=== PATIENT | male | born 1930 | race Caucasian/White ===

== ENCOUNTER 2017-08-25 15:18 | Inpatient (IN) | payer MEDICARE ==
[2017-08-25] MEDS ORDERED: DEXAMETHASONE SOD PHOS (MDV) 100 MG/10 ML VIAL ONE (19:46)
[2017-08-25] MEDS ORDERED: PROPOFOL 10 MG/ML 20 ML VIAL IV ONE (19:46)
[2017-08-25] MEDS ORDERED: KETAMINE 10 MG/ML 20 ML VIAL ONE (19:46)
[2017-08-25] MEDS ORDERED: MIDAZOLAM 2 MG/2 ML VIAL ONE (19:46)
[2017-08-25] MEDS ORDERED: PHENYLEPHRINE-0.9% NACL SYG 1 MG/10 ML SYRINGE ONE (19:46)
[2017-08-25] MEDS ORDERED: GLYCOPYRROLATE 0.2 MG/ML 2 ML VIAL ONE (19:46)
[2017-08-25] MEDS ORDERED: fentaNYL (PF) 50 MCG/ML 2 ML AMP ONE (19:46)
[2017-08-25] MEDS ORDERED: LACTATED RINGERS 1,000 ML IV ONE (19:46)
[2017-08-25] MEDS ORDERED: ONDANSETRON 4 MG/2 ML VIAL ONE (19:46)
[2017-08-25] MEDS ORDERED: SODIUM CHLORIDE 0.9% 50 ML with ceFAZolin 1,000 MG IV ONE ×2 (19:53)
[2017-08-25] MEDS ORDERED: LIDOCAINE 1%-EPI 1:100,000 30 ML VIAL SQ ONE ×2 (20:02)
--- NOTE | 2017-08-25 21:07 | P.OP ---
Date of Procedure: 08/25/17 Preoperative Diagnosis: Impending airway compromise Hypopharyngeal edema. radiation effects Laryngitis/epiglottic edema Postoperative Diagnosis: same Procedure(s) Performed: Tracheostomy Ligation of thyroid isthmus Direct microscopic laryngoscopy with biopsy posterior laryngeal Anesthesia: CHARLEE DRISCOLL Surgeon: Parminder Donis Estimated Blood Loss (ml): 5 Pathology: other (Posterior laryngeal biopsy) Condition: stable Disposition: PACU Indications for Procedure: This patient is status post radiotherapy for a laryngeal carcinoma. He developed some stridor over the last 2 weeks which is scheduled to be critically worsened. His stridor is such a problem that he is unable to sleep at night. He started to become fatigued and his stridor is making short of breath. He is also severely hoarse and is almost aphonic. He had a course of steroids which I give short-term improvement. After discussion have been I decided to proceed forward with a tracheotomy and laryngoscopy and biopsy. We will be ligating the isthmus at the time of surgery. All risks, benefits, and alternative therapies were discussed. Consent was obtained and all questions were answered. Operative Findings: Patient had massive hypopharyngeal edema massive edema the epiglottis larynx posterior laryngeal space cricoid space etc. Description of Procedure: This patient was taken to the operative room and placed in the supine position. IV sedation was administered the neck was marked and injected with lidocaine 1 % with epinephrine 1 100,000 approximately 10 minutes were allowed wait for full vasoconstrictive effects to take place. After the neck was prepped a vertical incision was made from the cricoid to the suprasternal notch. We dissected down to the strap muscles and the strap muscles were in the midline exposing the cricoid cartilage and the thyroid isthmus. We then freed the thyroid isthmus from the tracheal rings and with use of a LigaSure we and ligated the thyroid isthmus to obtain access into the trachea. Once the anterior tracheal rings were exposed we made a inferiorly based flap between the second and third tracheal rings and inserted a #8 Shiley cuffed tracheotomy tube. We closed the incision with a 4 rapid Vicryl. 2-0 silk was used for skin tie around the faceplate and a trach tie was placed around the neck. The tracheotomy tube was converted to the ventilator and a general anesthetic was then administered the patient underwent a general anesthetic allowing us to access the mouth and throat for a laryngoscopy and biopsy. A tooth guard was placed patient has very poor dental care and we entered the mouth with a Jako laryngoscope with care to avoid any trauma to the lips teeth gums and tongue. Mouth was opened tongue was depressed and the entire Onur and hypopharynx was evaluated including the base of tongue vallecula epiglottis postcricoid space piriform sinus Real vocal cords etc. etc. This was utilized under microscope utilizing a high-powered Zeiss microscope with a variable focal length. We found massive hypopharyngeal edema the epiglottis was extremely edematous the larynx was extremely edematous and the airway was very small and compromised. We biopsied this previous site of cancer in the posterior laryngeal region and the patient tolerated this well. Bleeding stopped spontaneously. The rest of the examination was unremarkable other than for massive radiation edema. All instrumentation was removed and the patient was taken to postanesthesia recovery in excellent condition. Tolerated this well and the patient will be sent to the intensive care unit for close observation. Dr. Ascencio will be managing this patient medically.
[2017-08-25] MEDS ORDERED: ONDANSETRON 4 MG/2 ML VIAL IVP PRN (21:08)
[2017-08-25] MEDS ORDERED: NALOXONE 0.4 MG/ML 1 ML VIAL IV PRN (21:08)
[2017-08-25] MEDS ORDERED: PROMETHAZINE 25 MG TAB PO PRN (21:08)
--- NOTE | 2017-08-25 21:35 | P.GSHP ---
History of Present Illness H&P Date: 08/25/17 Chief Complaint: Stridor impending airway compromise This is an 87-year-old white male who I saw in the office earlier today. He has developed some significant stridor both inspiratory and expiratory. He's been unable to sleep for several days and he is starting to fatigue in regards to his ability to breathe. He is almost aphonic. He is status post radiotherapy for laryngeal carcinoma. - Constitutional Constitutional: Reports anorexia, Reports fatigue, Reports lethargy, Reports weakness, Reports weight loss - EENT Comment: . Eyes: bilateral as per HPI Ears: deny: decreased hearing, ear discharge Ears, nose, mouth and throat: Reports hoarseness, Reports neck fullness/pressure , Denies dysphagia, Denies epistaxis, Denies headache, Denies mouth pain - Cardiovascular Cardiovascular: Denies chest pain - Respiratory Respiratory: Reports dyspnea - Gastrointestinal Gastrointestinal: Reports loss of appetite - Musculoskeletal Musculoskeletal: Denies atrophy - Integumentary Integumentary: Denies acne, Denies boils - Neurological Neurological: Denies aphasia, Denies ataxia - Endocrine Endocrine: Denies cold intolerance - Hematologic/Lymphatic Hematologic/Lymphatic: Reports as per HPI - Allergic/Immunologic Allergic/Immunologic: Denies allergic rhinitis Past Medical History Past Medical History: Cancer, GERD/Reflux, Hypertension, Osteoarthritis (OA), Pulmonary Embolus (PE) Additional Past Medical History / Comment(s): throat cancer, ANXIETY. RADIATION TX AT [facility] COMPLETED 06/26/17 AND CHEMOTHERAPY 7 TREATMENTS AT [facility] COMPLETED 06/29 History of Any Multi-Drug Resistant Organisms: None Reported Past Surgical History: Orthopedic Surgery Additional Past Surgical History / Comment(s): RIGHT HIP REPLACEMENT Past Anesthesia/Blood Transfusion Reactions: No Reported Reaction Additional Past Anesthesia/Blood Transfusion Reaction / Comment(s): HAD 2 UNITS DURING CHEMO AT [facility] Past Psychological History: No Psychological Hx Reported Smoking Status: Former smoker Past Alcohol Use History: Occasional Past Drug Use History: None Reported - Past Family History Father Family Medical History: Cancer Additional Family Medical History / Comment(s): KIDNEY CANCER Mother Family Medical History: Myocardial Infarction ([place]) Medications and Allergies Home Medications Medication Instructions Recorded Confirmed Type Acetaminophen [Tylenol Extra 1,000 mg PO BID PRN 08/25/17 08/25/17 History Strength] Atenolol [Tenormin] 50 mg PO DAILY 08/25/17 08/25/17 History LORazepam [Ativan] 1 mg PO DAILY 08/25/17 08/25/17 History Multivitamin/Iron/Folic Acid 1 tab PO DAILY 08/25/17 08/25/17 History [Centrum Complete Multivit Tab] Naproxen Sodium [Aleve] 440 mg PO DAILY PRN 08/25/17 08/25/17 History Omeprazole [PriLOSEC] 20 mg PO DAILY 08/25/17 08/25/17 History Tamsulosin HCl [Flomax] 0.4 mg PO DAILY 08/25/17 08/25/17 History amLODIPine BESYLATE/BENAZEPRIL 1 cap PO DAILY 08/25/17 08/25/17 History [amLODIPine BESYLATE/BENAZEPRIL 10-40 mg] Allergies Allergy/AdvReac Type Severity Reaction Status Date / Time No Known Allergies Allergy Verified 08/25/17 18:45 Surgical - Exam Osteopathic Statement: *. No significant issues noted on an osteopathic structural exam other than those noted in the History and Physical/Consult. Vital Signs Temp Pulse Resp BP Pulse Ox 97.7 F 109 H 20 110/60 100 08/25/17 15:58 08/25/17 15:58 08/25/17 15:58 08/25/17 15:58 08/25/17 15:58 - General Head is normocephalic the face is symmetric there's no abnormal movements is a no nodules present. Onur's well-formed canals are clear her nose is patent. Mouth and throat no oral lesions are noted neck demonstrates significant laryngeal inflammation. Patient has audible stridor both inspiratory and expiratory well developed, well nourished, severe distress, cachectic, chronically ill - Eyes absent: ptosis, lesions, erythema, surgical pupil - ENT normal pinna, normal nares, normal mucosa, no congestion, decreased hearing, poor group home - Neck Generalized radiation edema noted no masses, no bruits - Respiratory other (Short of breath with expiratory and inspiratory stridor) - Cardiovascular Rhythm: regular - Abdomen Abdomen: soft - Integumentary no rash, no growths - Neurologic normal coordination, normal sensation - Musculoskeletal normal gait, normal posture - Psychiatric oriented to time, oriented to person, oriented to place, no speech is normal, memory intact Assessment and Plan (1) Acute airway obstruction Current Visit: Yes Status: Acute Code(s): J98.8 - OTHER SPECIFIED RESPIRATORY DISORDERS SNOMED Code(s): 37929817 (2) Stridor Current Visit: Yes Status: Acute Code(s): R06.1 - STRIDOR SNOMED Code(s): 97728337 (3) Laryngeal edema Current Visit: Yes Status: Acute Code(s): J38.4 - EDEMA OF LARYNX SNOMED Code(s): 71370773 Plan: This patient presented to the office with severe stridor both inspiratory and expiratory with fatigue of breathing and shortness of breath. The patient did not appear that he was able to continue this pattern of breathing for very much longer we decided to proceed forward with a tracheotomy along with a laryngoscopy biopsy and of course we will ligate the thyroid isthmus to obtain access to the anterior trachea. All risks, benefits, and alternative therapies were discussed with the patient and the . Consent was obtained and all questions were answered.
[2017-08-25] MEDS ORDERED: D5-0.45% NACL WITH KCL 20MEQ/L 1,000 ML IV SCH (23:00)
[2017-08-25 23:13] LABS: Basophils % (A) 0 %; Eosinophils # (A) 0.1 k/uL (0-0.7); Eosinophils % (A) 2 %; HCT 21.4 % (39.0-53.0); Lymphocytes % (A) 14 %; MCH 30.3 pg (25.0-35.0); MCHC 32.2 g/dL (31.0-37.0); Mean Platelet Volume 6.4; Monocytes # (A) 0.4 k/uL (0-1.0); Monocytes % (A) 5 %; Neutrophils # (A) 5.6 k/uL (1.3-7.7); Neutrophils % (A) 78 %; Platelet Count 254 k/uL (150-450); RBC 2.27 m/uL (4.30-5.90); RDW 14.4 % (11.5-15.5); WBC 7.1 k/uL (3.8-10.6)
[2017-08-25 23:18] LABS: HGB 6.9 gm/dL (13.0-17.5)
[2017-08-25] MEDS: methylPREDNISolone SOD SUCCI 125 MG/2 ML VIAL IV SCH (23:59)
[2017-08-26 07:41] LABS: Anion Gap 14 mmol/L; Blood Urea Nitrogen 20 mg/dL (9-20); Calcium 8.5 mg/dL (8.4-10.2); Carbon Dioxide 23 mmol/L (22-30); Chloride 94 mmol/L (98-107); Glucose 182 mg/dL (74-99); Phosphorus 3.8 mg/dL (2.5-4.5); Potassium 4.3 mmol/L (3.5-5.1); Sodium 131 mmol/L (137-145)
[2017-08-26 07:57] LABS: Magnesium 0.6 mg/dL (1.6-2.3)
[2017-08-26] MEDS ORDERED: Magnesium Replacement Protocol 1 EACH MISC MISCELLANE PRN (08:01)
[2017-08-26 08:17] LABS: Basophils % (A) 0 %; Eosinophils % (A) 0 %; HCT 30.6 % (39.0-53.0); Lymphocytes # (A) 1.1 k/uL (1.0-4.8); Lymphocytes % (A) 12 %; MCH 30.4 pg (25.0-35.0); MCHC 32.9 g/dL (31.0-37.0); MCV 92.4 fL (80.0-100.0); Mean Platelet Volume 6.6; Monocytes # (A) 0.2 k/uL (0-1.0); Monocytes % (A) 2 %; Neutrophils # (A) 7.9 k/uL (1.3-7.7); Neutrophils % (A) 85 %; Platelet Count 268 k/uL (150-450); RBC 3.31 m/uL (4.30-5.90); RDW 15.3 % (11.5-15.5); WBC 9.3 k/uL (3.8-10.6)
[2017-08-26 08:19] LABS: HGB 10.1 gm/dL (13.0-17.5)
[2017-08-26] MEDS: HEPARIN SODIUM,PORCINE 5,000 UNIT/ML 1 ML VIAL SQ SCH ×2 (08:23→15:13)
[2017-08-26] MEDS: PANTOPRAZOLE 40 MG TABLET PO SCH ×2 (08:23→18:28)
[2017-08-26] MEDS: ATENOLOL 50 MG TAB PO SCH (08:24)
[2017-08-26] MEDS: LISINOPRIL 10 MG TAB PO SCH (08:24)
[2017-08-26 08:30] LABS: ALT 23 U/L (21-72); AST 37 U/L (17-59); Albumin 3.6 g/dL (3.5-5.0); Alkaline Phosphatase 71 U/L (38-126); Total Bilirubin 1.3 mg/dL (0.2-1.3); Total Protein 6.6 g/dL (6.3-8.2)
[2017-08-26] MEDS: cefTRIAXone IN SWFI 1,000 MG/10 ML SYRINGE IVP SCH (08:31)
[2017-08-26] MEDS: MAGNESIUM SULFATE-D5W PMX 1 GM in DEXTROSE/WATER 1 100ML.BAG IVPB SCH ×4 (08:37→12:28)
--- NOTE | 2017-08-26 08:52 | P.CNPUL ---
History of Present Illness Consult date: 08/26/17 Reason for consult: dyspnea, other Chief complaint: Increasing respiratory distress with stridor History of present illness: Consult dated 08/26/2017 87-year-old male who was seen in the office of the ear nose and throat doctor. The patient apparently developed some respiratory distress with stridor. The patient has been unable to sleep for a couple days because of the breathing difficulty. He is on was not able to even speak. 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 The patient had a tracheostomy performed yesterday. He is postop day #1. Transferred back here to the ICU on a trach collar. Seemed pretty stable. He did receive 1 unit of packed red blood cells. Currently he's got an IV of dextrose half- normal saline with 20 of potassium chloride at 80 mL an hour. The trach collar is 35%. He was admitted on August 25, which is yesterday. This morning, the patient's rather sleepy. Doesn't appear to have any distress or issues. No complaints. Minimal pain in the neck area. His past medical history is positive for the laryngeal/vocal cord cancer, acid reflux disease, hypertension , osteoarthritis, pulmonary embolism, anxiety, and he is status post both radiation and chemotherapy for his cancer. He's also had right hip replacement. Medications are reviewed. Review of Systems Review of systems Constitutional negative neurologic negative HEENT status post tracheostomy for stridor Cardiovascular negative pulmonary shortness of breath, improved GI negative negative rheumatologic negative immunologic negative endocrinologic negative dermatologic negative Past Medical History Past Medical History: Cancer, GERD/Reflux, Hypertension, Osteoarthritis (OA), Pulmonary Embolus (PE) Additional Past Medical History / Comment(s): throat cancer, ANXIETY. RADIATION TX AT [facility] COMPLETED 06/26/17 AND CHEMOTHERAPY 7 TREATMENTS AT [facility] COMPLETED 06/29 History of Any Multi-Drug Resistant Organisms: None Reported Past Surgical History: Orthopedic Surgery Additional Past Surgical History / Comment(s): RIGHT HIP REPLACEMENT Past Anesthesia/Blood Transfusion Reactions: No Reported Reaction Additional Past Anesthesia/Blood Transfusion Reaction / Comment(s): HAD 2 UNITS DURING CHEMO AT [facility] Past Psychological History: No Psychological Hx Reported Smoking Status: Former smoker Past Alcohol Use History: Occasional Past Drug Use History: None Reported - Past Family History Father Family Medical History: Cancer Additional Family Medical History / Comment(s): KIDNEY CANCER Mother Family Medical History: Myocardial Infarction ([place]) Medications and Allergies Home Medications Medication Instructions Recorded Confirmed Type Acetaminophen [Tylenol Extra 1,000 mg PO BID PRN 08/25/17 08/25/17 History Strength] Atenolol [Tenormin] 50 mg PO DAILY 08/25/17 08/25/17 History LORazepam [Ativan] 1 mg PO DAILY 08/25/17 08/25/17 History Multivitamin/Iron/Folic Acid 1 tab PO DAILY 08/25/17 08/25/17 History [Centrum Complete Multivit Tab] Naproxen Sodium [Aleve] 440 mg PO DAILY PRN 08/25/17 08/25/17 History Omeprazole [PriLOSEC] 20 mg PO DAILY 08/25/17 08/25/17 History Tamsulosin HCl [Flomax] 0.4 mg PO DAILY 08/25/17 08/25/17 History amLODIPine BESYLATE/BENAZEPRIL 1 cap PO DAILY 08/25/17 08/25/17 History [amLODIPine BESYLATE/BENAZEPRIL 10-40 mg] Allergies Allergy/AdvReac Type Severity Reaction Status Date / Time No Known Allergies Allergy Verified 08/25/17 18:45 Physical Exam Osteopathic Statement: *. No significant issues noted on an osteopathic structural exam other than those noted in the History and Physical/Consult. Vitals: Vital Signs Temp Pulse Pulse Pulse Resp BP BP 08/26/17 07:00 67 11 L 137/64 08/26/17 06:30 100 35 H 126/70 08/26/17 06:00 78 8 L 117/59 08/26/17 05:30 97.7 F 79 10 L 121/64 08/26/17 05:00 78 13 131/66 08/26/17 04:30 86 8 L 129/71 08/26/17 04:00 97.9 F 104 H 84 19 113/65 08/26/17 03:44 99 12 112/64 08/26/17 03:30 92 12 113/64 08/26/17 03:14 97.9 F 76 12 113/64 08/26/17 03:04 97.5 F L 86 12 115/63 08/26/17 03:00 81 11 L 115/63 08/26/17 02:30 100 20 140/68 08/26/17 02:00 70 9 L 08/26/17 01:30 75 6 L 08/26/17 01:00 84 8 L 08/26/17 00:30 85 19 127/66 08/26/17 00:00 79 9 L 127/66 08/25/17 23:30 94 19 127/66 08/25/17 23:00 92 44 H 08/25/17 22:30 84 16 08/25/17 22:29 08/25/17 17:59 97.5 F L 108 H 16 167/85 08/25/17 15:58 97.7 F 109 H 20 110/60 Pulse Ox 08/26/17 07:00 98 08/26/17 06:30 97 08/26/17 06:00 99 08/26/17 05:30 98 08/26/17 05:00 100 08/26/17 04:30 100 08/26/17 04:00 93 L 08/26/17 03:44 08/26/17 03:30 98 08/26/17 03:14 08/26/17 03:04 99 08/26/17 03:00 98 08/26/17 02:30 97 08/26/17 02:00 100 08/26/17 01:30 99 08/26/17 01:00 98 08/26/17 00:30 100 08/26/17 00:00 100 08/25/17 23:30 100 08/25/17 23:00 98 08/25/17 22:30 100 08/25/17 22:29 100 08/25/17 17:59 98 08/25/17 15:58 100 Intake and Output 08/25/17 08/26/17 08/26/17 22:59 06:59 14:59 Intake Total 450 1100 80 Output Total 4 500 0 Balance 446 600 80 Intake: IV 450 790 80 D5-0.45% NaCl with KCl 480 80 20Meq/l 1,000 ml @ 80 mls /hr IV .[id number] [facility] Rx#: [id number] PRBC 310 Blood Product 310 Rc Pheresis 2 As3 Unit 310 [id number] Output: Urine 500 0 Estimated Blood Loss 4 Other: # Voids 2 Weight 73.482 kg 77.9 kg No acute distress, oriented 3. HEENT examination is grossly unremarkable. Mucous membranes are moist. No oral lesions. Neck supple. Full range of motion. No adenopathy thyromegaly or neck vein distention. Fresh midline tracheostomy is noted. Trach collar is noted. Cardiovascular examination reveals regular rhythm rate. S1-S2 normal. No S3 or S4. No discernible murmur noted. Lungs reveal clear breath sounds. Her sounds are equal bilaterally. No adventitious lung sounds including wheezes rhonchi or crackles. Abdomen soft bowel sounds are heard. No masses or tenderness. Extremities are intact. No cyanosis clubbing or edema. Skin is without rash or lesion. Neurologic examination is brief but nonfocal. Results - Laboratory Findings CBC and BMP: 08/26/17 06:46 08/26/17 06:46 Abnormal lab findings: Abnormal Labs 08/25/17 08/25/17 08/26/17 22:40 23:48 06:46 RBC 2.27 L 3.31 L Hgb 6.9 L* 10.1 L D Hct 21.4 L 30.6 L Neutrophils # 7.9 H Sodium Chloride Glucose Magnesium Crossmatch See Detail 08/26/17 06:46 RBC Hgb Hct Neutrophils # Sodium 131 L Chloride 94 L Glucose 182 H Magnesium 0.6 L* Crossmatch - Diagnostic Findings Chest x-ray: image reviewed (Labs x-rays a medications are all reviewed.) Assessment and Plan Assessment: Assessment History of laryngeal/vocal cord cancer, status post chemotherapy and radiation therapy, with developing shortness of breath and stridor, postop day #1 status post tracheostomy History of gastroesophageal reflux disease History of hypertension History of osteoarthritis History of pulmonary most him History of anxiety Plan: Plan dated 08/26/2017 The patient seems be doing relatively well. The patient could probably be transferred out to the general medical floor later today. We'll try and get him over to oncology. No additional recommendations are made. Labs x-rays a medications are all reviewed. Time with Patient: Greater than 30
[2017-08-26] MEDS ORDERED: amLODIPine 2.5 MG TAB PO SCH (09:00)
[2017-08-26] MEDS ORDERED: HEPARIN SODIUM,PORCINE 5,000 UNIT/ML 1 ML VIAL SQ SCH (09:00)
[2017-08-26] MEDS: SODIUM CHLORIDE 0.9% 1,000 ML IV SCH (11:05)
[2017-08-26] MEDS: HYDROcodone/APAP 5-325MG 1 EACH TAB PO PRN ×2 (11:36→18:54)
[2017-08-26 12:18] LABS: Glucose,Whole Blood 218 mg/dL (75-99)
[2017-08-26] MEDS: INSULIN ASPART 100 UNIT/ML 1 ML 10 ML VIAL SQ SCH ×3 (12:25→21:46)
[2017-08-26] MEDS: ACETAMINOPHEN TAB 325 MG TAB PO PRN (14:54)
--- NOTE | 2017-08-26 17:09 | P.PN ---
Subjective Progress Note Date: 08/26/17 Principal diagnosis: Status post tracheotomy doing well Patient is status post a tracheotomy and is doing well he's breathing wonderfully through his trach tube. He has no further stridor or respiratory distress. We're working with respiratory therapy for trach education and we need to arrange a home medical supplies service for trach supplies and training. Objective - Vital Signs Vital signs: Vital Signs Temp 98.1 F 08/26/17 14:51 Pulse 60 08/26/17 14:51 Resp 20 08/26/17 14:51 BP 100/60 08/26/17 14:51 Pulse Ox 98 08/26/17 14:51 Intake & Output 08/25/17 08/26/17 08/26/17 18:59 06:59 18:59 Intake Total 1550 1200 Output Total 504 450 Balance 1046 750 Weight 73.482 kg 77.9 kg Intake: IV 1240 980 D5-0.45% NaCl with KCl 480 400 20Meq/l 1,000 ml @ 80 mls /hr IV .[id number] [facility] Rx#: [id number] Magnesium Sulfate-D5w Pmx 400 1 gm In Dextrose/Water 1 100ml.bag @ 100 mls/hr IVPB Q1H [facility] Rx#: [id number] PRBC 310 Sodium Chloride 0.9% 1, 180 000 ml @ 60 mls/hr IV . [id number] [facility] Rx#:[id number] Intake, IV Titration 220 Amount Lactated Ringers 1,000 ml 220 As IV .[facility] Rx#: [id number] Blood Product 310 Rc Pheresis 2 As3 Unit 310 [id number] Output: Urine 500 450 Estimated Blood Loss 4 Other: Voiding Method Bedside Commode # Voids 2 - Constitutional General appearance: Present: average body habitus - EENT Eyes: Present: PERRLA - Neck Details: Trach tube in place functioning well Neck: Absent: lymphadenopathy - Labs CBC & Chem 7: 08/26/17 06:46 08/26/17 06:46 Labs: Abnormal Lab Results - Last 24 Hours (Table) 08/25/17 08/25/17 08/26/17 Range/Units 22:40 23:48 06:46 RBC 2.27 L 3.31 L (4.30-5.90) m/uL Hgb 6.9 L* 10.1 L D (13.0-17.5) gm/dL Hct 21.4 L 30.6 L (39.0-53.0) % Neutrophils # 7.9 H (1.3-7.7) k/uL Sodium (137-145) mmol/L Chloride (98-107) mmol/L Glucose (74-99) mg/dL POC Glucose (mg/dL) (75-99) mg/dL Magnesium (1.6-2.3) mg/dL Crossmatch See Detail 08/26/17 08/26/17 Range/Units 06:46 12:17 RBC (4.30-5.90) m/uL Hgb (13.0-17.5) gm/dL Hct (39.0-53.0) % Neutrophils # (1.3-7.7) k/uL Sodium 131 L (137-145) mmol/L Chloride 94 L (98-107) mmol/L Glucose 182 H (74-99) mg/dL POC Glucose (mg/dL) 218 H (75-99) mg/dL Magnesium 0.6 L* (1.6-2.3) mg/dL Crossmatch Assessment and Plan (1) Acute airway obstruction Current Visit: Yes Status: Acute Code(s): J98.8 - OTHER SPECIFIED RESPIRATORY DISORDERS SNOMED Code(s): 44507058 (2) Stridor Current Visit: Yes Status: Acute Code(s): R06.1 - STRIDOR SNOMED Code(s): 27761222 (3) Laryngeal edema Current Visit: Yes Status: Acute Code(s): J38.4 - EDEMA OF LARYNX SNOMED Code(s): 76185753 Plan: Patient is doing well after his surgery. We will be working with respiratory therapy for trach education and social worker for discharge planning. The patient will need a home healthcare company to help interface with his needs. Trach training for the is also recommended. A home health care nurses also recommended. Time with Patient: Greater than 30
[2017-08-26 17:16] LABS: Glucose,Whole Blood 84 mg/dL (75-99)
[2017-08-26] MEDS: TAMSULOSIN 0.4 MG CAP.ER.24H PO SCH (18:28)
[2017-08-26 20:48] LABS: Glucose,Whole Blood 160 mg/dL (75-99)
[2017-08-26] MEDS: methylPREDNISolone SOD SUCCI 125 MG/2 ML VIAL IV SCH (21:45)
--- NOTE | 2017-08-26 23:04 | CONS ---
CONSULTATION ATTENDING PHYSICIAN: Dr. Donis. CONSULTING PHYSICIAN: Dr. Maya Ascencio. CONSULTATION REGARDING: Medical management. HISTORY OF PRESENT ILLNESS: This 87-year-old gentleman was admitted to the hospital because of inspiratory stridor and significant shortness of breath. The patient recently had been treated for laryngeal carcinoma and with radiation. The patient has had good results from that perspective; however, the patient has significant laryngeal edema and has developed stridor and difficulty breathing. The patient was treated by Dr. Donis as an outpatient with steroids with improvement; however, on his weekly visits, he has noticed that the patient kept on relapsing to the point that he has difficulty breathing and thus he brings the patient in for urgent tracheostomy to prevent him from getting into severe respiratory distress. The patient, as mentioned above, had recently undergone radiation therapy. PAST MEDICAL HISTORY: Significant for hypertension, degenerative arthritis, BPH, gastroesophageal reflux disease without esophagitis, hyperlipidemia and history of gout. He also has had a previous history of DVT and possible pulmonary embolism over 20 years ago. patient had PE and DVT in 1999, history of colonic diverticulosis. SOCIAL HISTORY: Patient is , lives with his spouse. Able to take care of himself. PAST SURGICAL HISTORY: Significant for tonsillectomy and adenoidectomy, right total hip arthroplasty. FAMILY MEDICAL HISTORY: Father at the age of 73, coronary artery disease. Mother at age of 72, sudden . The patient had a sister who at the age of 51. She had cirrhosis of the liver. The patient has a daughter, 57, in good health; a daughter, 60, in good health. VACCINATION HISTORY: Pneumovax previously vaccinated and previously vaccinated for zoster vaccine. MEDICATIONS: Medications have included: 1. Aleve p.r.n. 2. Vitamins daily. 3. Ativan 1 mg daily at bedtime. 4. Lotrel 10-40 one daily. 5. Flomax 0.4 mg daily. 6. Prilosec 20 mg daily. 7. Atenolol 50 mg daily. ALLERGIES: None known. PHYSICAL EXAMINATION: Patient is evaluated this morning. The patient has had a tracheostomy as mentioned about last evening. Vital signs reveal temperature 97.9, pulse 74, respirations 14, blood pressure 119/64, pulse ox 100% on 35% FiO2 through a trach collar. HEENT: Normocephalic. NECK: Status post fresh tracheostomy. No lymphadenopathy. Oral cavity is dry. CHEST: Some generalized mild decreased air flow. CARDIAC: Distant heart sounds, S1, S2 with no gallops. Regular rhythm. Systolic murmur 2/6 left sternal border. ABDOMEN: Soft. Bowel sounds present. Extremities reveal trace edema, right ankle. Otherwise, moves both upper lower extremities adequately. NEUROLOGIC: Awake, alert, oriented, well-coordinated movements. Able to not speak, but makes gestures for adequate communication. LABORATORY ASSESSMENT: CBC reported last night of 6.9 hemoglobin. The patient was transfused 1 unit of packed red cells. Subsequent hemoglobin this morning is 10.1, which is probably inaccurate, the patient has jumped 3 g from 1 unit of packed red cells. Sodium is 131, potassium is normal. BUN, creatinine are normal. Patient's glucose was 182. Magnesium was low at 0.6 for which he has received infusion. Blood sugars are covered with insulin. ASSESSMENT: 1. Hypertension on medical therapy. 2. Anemia with no evidence of acute bleeding. 3. Status post radiation therapy for carcinoma of the larynx. 4. 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 5. Chronic obstructive pulmonary disease. 6. Previous history of deep venous thrombosis. 7. Hyperglycemia. PLAN: The patient at present is stable. Continue present medical regimen. Patient's condition discussed with the spouse yesterday and Dr. Donis yesterday evening. Will continue present trach care and education. Continue patient's medications. Prognosis remains guarded. MMODL / IJN: [id number] /
[2017-08-27] MEDS: HEPARIN SODIUM,PORCINE 5,000 UNIT/ML 1 ML VIAL SQ SCH ×4 (00:57→23:08)
[2017-08-27] MEDS: HYDROcodone/APAP 5-325MG 1 EACH TAB PO PRN ×2 (01:22→09:48)
[2017-08-27] MEDS: SODIUM CHLORIDE 0.9% 1,000 ML IV SCH ×2 (01:23→21:48)
[2017-08-27 07:51] LABS: Glucose,Whole Blood 132 mg/dL (75-99)
[2017-08-27] MEDS: INSULIN ASPART 100 UNIT/ML 1 ML 10 ML VIAL SQ SCH ×4 (08:02→21:45)
[2017-08-27] MEDS: LISINOPRIL 10 MG TAB PO SCH (09:00)
[2017-08-27] MEDS: ATENOLOL 50 MG TAB PO SCH (09:00)
[2017-08-27 09:41] LABS: Basophils % (A) 0 %; Eosinophils % (A) 0 %; HCT 25.9 % (39.0-53.0); Lymphocytes % (A) 10 %; MCH 29.9 pg (25.0-35.0); MCHC 31.9 g/dL (31.0-37.0); MCV 93.7 fL (80.0-100.0); Mean Platelet Volume 6.5; Monocytes # (A) 0.4 k/uL (0-1.0); Monocytes % (A) 4 %; Neutrophils # (A) 8.2 k/uL (1.3-7.7); Neutrophils % (A) 85 %; Platelet Count 268 k/uL (150-450); RBC 2.77 m/uL (4.30-5.90); RDW 15.5 % (11.5-15.5); WBC 9.6 k/uL (3.8-10.6)
[2017-08-27 09:47] LABS: HGB 8.3 gm/dL (13.0-17.5)
[2017-08-27] MEDS: cefTRIAXone IN SWFI 1,000 MG/10 ML SYRINGE IVP SCH (10:59)
[2017-08-27 12:37] LABS: Glucose,Whole Blood 118 mg/dL (75-99)
--- NOTE | 2017-08-27 12:55 | P.PN ---
Subjective Progress Note Date: 08/27/17 Principal diagnosis: History of laryngeal/vocal cord cancer, status post chemotherapy and radiation therapy, status post tracheostomy, postop day 2 87-year-old male who was seen in the office of the ear nose and throat doctor. The patient apparently developed some respiratory distress with stridor. The patient has been unable to sleep for a couple days because of the breathing difficulty. He is on was not able to even speak. 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 The patient had a tracheostomy performed yesterday. He is postop day #1. Transferred back here to the ICU on a trach collar. Seemed pretty stable. He did receive 1 unit of packed red blood cells. Currently he's got an IV of dextrose half- normal saline with 20 of potassium chloride at 80 mL an hour. The trach collar is 35%. He was admitted on August 25, which is yesterday. This morning, the patient's rather sleepy. Doesn't appear to have any distress or issues. No complaints. Minimal pain in the neck area. His past medical history is positive for the laryngeal/vocal cord cancer, acid reflux disease, hypertension , osteoarthritis, pulmonary embolism, anxiety, and he is status post both radiation and chemotherapy for his cancer. He's also had right hip replacement. Medications are reviewed. On 08/27/2017 patient seen again in follow-up. He sitting up in the chair, in no acute distress, 35% trach collar with O2 sat at 97%. Patient is afebrile, his other vital signs stable. There is some moderate amount of yellowish blood- tinged secretions he is bringing up through his tracheostomy. Lung sounds are positive for some scattered rhonchi, but good air entry noted bilaterally. Patient is tolerating soft foods diet. He denies any acute complaints, denies any fever, denies any chills any chest pain. He continues on IV Solu-Medrol, and Rocephin per ENT service. Objective - Vital Signs Vital signs: Vital Signs Temp 97.2 F L 08/27/17 07:00 Pulse 55 L 08/27/17 07:00 Resp 18 08/27/17 07:00 BP 108/58 08/27/17 07:00 Pulse Ox 97 08/27/17 07:00 Intake & Output 08/26/17 08/27/17 08/27/17 18:59 06:59 18:59 Intake Total 1740 480 Output Total 450 Balance 1290 480 Intake: IV 1280 480 D5-0.45% NaCl with KCl 400 20Meq/l 1,000 ml @ 80 mls /hr IV .[id number] [facility] Rx#: [id number] Magnesium Sulfate-D5w Pmx 400 1 gm In Dextrose/Water 1 100ml.bag @ 100 mls/hr IVPB Q1H [facility] Rx#: [id number] Sodium Chloride 0.9% 1, 480 480 000 ml @ 60 mls/hr IV . [id number] [facility] Rx#:[id number] Intake, IV Titration 460 Amount Lactated Ringers 1,000 ml 460 As IV .STK-MED ONE Rx#: [id number] Output: Urine 450 Other: Voiding Method Bedside Commode # Voids 1 1 - Exam No acute distress, oriented 3. HEENT examination is grossly unremarkable. Mucous membranes are moist. No oral lesions. Neck supple. Full range of motion. No adenopathy thyromegaly or neck vein distention. Fresh midline tracheostomy is noted. Trach collar is noted. There is moderate amount of yellowish-green, slightly blood-tinged secretions noted from the tracheostomy Cardiovascular examination reveals regular rhythm rate. S1-S2 normal. No S3 or S4. No discernible murmur noted. Lungs reveal scattered rhonchi bilaterally. Equal breath sounds are equal bilaterally. No adventitious lung sounds including wheezes or crackles. Abdomen soft bowel sounds are heard. No masses or tenderness. Extremities are intact. No cyanosis clubbing or edema. Skin is without rash or lesion. Neurologic examination is brief but nonfocal. - Labs CBC & Chem 7: 08/27/17 08:47 08/26/17 06:46 Labs: Abnormal Lab Results - Last 24 Hours (Table) 08/26/17 08/27/17 08/27/17 Range/Units 20:46 07:41 08:47 RBC 2.77 L (4.30-5.90) m/uL Hgb 8.3 L D (13.0-17.5) gm/dL Hct 25.9 L (39.0-53.0) % Neutrophils # 8.2 H (1.3-7.7) k/uL POC Glucose (mg/dL) 160 H 132 H (75-99) mg/dL 08/27/17 Range/Units 12:23 RBC (4.30-5.90) m/uL Hgb (13.0-17.5) gm/dL Hct (39.0-53.0) % Neutrophils # (1.3-7.7) k/uL POC Glucose (mg/dL) 118 H (75-99) mg/dL Assessment and Plan Plan: Assessment: History of laryngeal/vocal cord cancer, status post chemotherapy and radiation therapy, with developing shortness of breath and stridor, postop day #2 status post tracheostomy History of gastroesophageal reflux disease History of hypertension History of osteoarthritis History of pulmonary most him History of anxiety Plan: Patient remains stable from pulmonary standpoint, is tolerating 35% trach collar very well, is able to expectorate moderate amount of phlegm through the tracheostomy. Is tolerating soft foods diet. No signs of any distress, no signs of any difficulty breathing. Lung sounds are positive for scattered rhonchi, vital signs remain stable, patient is afebrile. Continues on Rocephin and IV Solu-Medrol per Dr. Mcgill. Surgical specimen biopsy of the larynx is pending. We'll continue to follow with you I performed a history & physical examination of the patient and discussed their management with my nurse practitioner, Parris Grimes. I reviewed the nurse practitioner's note and agree with the documented findings and plan of care. Lung sounds are positive for scattered rhonchi. The findings and the impression was discussed with the patient. I attest to the documentation by the nurse practitioner. Time with Patient: Less than 30
[2017-08-27] MEDS: PANTOPRAZOLE 40 MG TABLET PO SCH ×2 (13:15→18:03)
[2017-08-27] MEDS: ACETAMINOPHEN TAB 325 MG TAB PO PRN (16:32)
[2017-08-27 17:09] LABS: Glucose,Whole Blood 119 mg/dL (75-99)
[2017-08-27] MEDS: TAMSULOSIN 0.4 MG CAP.ER.24H PO SCH (18:03)
--- NOTE | 2017-08-27 18:59 | P.PN ---
Subjective Progress Note Date: 08/27/17 Principal diagnosis: Status post tracheotomy for impending airway compromise Patient has done well after tracheotomy. He is undergoing trach education. We are arranging for home healthcare and tracheostomy supplies. He is having very little drainage from his trach site. Objective - Vital Signs Vital signs: Vital Signs Temp 97.1 F L 08/27/17 15:00 Pulse 64 08/27/17 15:00 Resp 18 08/27/17 15:00 BP 105/61 08/27/17 15:00 Pulse Ox 97 08/27/17 15:00 Intake & Output 08/26/17 08/27/17 08/27/17 18:59 06:59 18:59 Intake Total 1740 480 840 Output Total 450 Balance 1290 480 840 Intake: IV 1280 480 400 D5-0.45% NaCl with KCl 400 20Meq/l 1,000 ml @ 80 mls /hr IV .[id number] [facility] Rx#: [id number] Magnesium Sulfate-D5w Pmx 400 1 gm In Dextrose/Water 1 100ml.bag @ 100 mls/hr IVPB Q1H [facility] Rx#: [id number] Sodium Chloride 0.9% 1, 480 480 400 000 ml @ 60 mls/hr IV . [id number] [facility] Rx#:[id number] Intake, IV Titration 460 Amount Lactated Ringers 1,000 ml 460 As IV .STK-MED ONE Rx#: [id number] Oral 440 Output: Urine 450 Other: Voiding Method Bedside Commode # Voids 1 1 - Constitutional General appearance: Present: average body habitus - EENT Eyes: Present: PERRLA ENT: Present: normal oropharynx - Neck Details: Tracheotomy tube in place doing well. The faceplate has sutures in place. Neck: Present: normal ROM. Absent: lymphadenopathy - Psychiatric Psychiatric: Present: A&O x's 3, appropriate affect - Labs CBC & Chem 7: 08/27/17 08:47 08/26/17 06:46 Labs: Abnormal Lab Results - Last 24 Hours (Table) 08/26/17 08/27/17 08/27/17 Range/Units 20:46 07:41 08:47 RBC 2.77 L (4.30-5.90) m/uL Hgb 8.3 L D (13.0-17.5) gm/dL Hct 25.9 L (39.0-53.0) % Neutrophils # 8.2 H (1.3-7.7) k/uL POC Glucose (mg/dL) 160 H 132 H (75-99) mg/dL 18 08/27/17 Range/Units 12:23 17:05 RBC (4.30-5.90) m/uL Hgb (13.0-17.5) gm/dL Hct (39.0-53.0) % Neutrophils # (1.3-7.7) k/uL POC Glucose (mg/dL) 118 H 119 H (75-99) mg/dL Assessment and Plan (1) Acute airway obstruction Current Visit: Yes Status: Acute Code(s): J98.8 - OTHER SPECIFIED RESPIRATORY DISORDERS SNOMED Code(s): 85789877 (2) Stridor Current Visit: Yes Status: Acute Code(s): R06.1 - STRIDOR SNOMED Code(s): 64465713 (3) Laryngeal edema Current Visit: Yes Status: Acute Code(s): J38.4 - EDEMA OF LARYNX SNOMED Code(s): 65254190 Plan: Once this patient and his are well trained in tracheotomy care and we've arranged for a home health care agency and a home health care nurse, this patient will be discharged. I anticipate he should be discharged by tomorrow if all criteria is met.
[2017-08-27 20:55] LABS: Glucose,Whole Blood 116 mg/dL (75-99)
[2017-08-27] MEDS ORDERED: LORazepam 1 MG TAB PO SCH (21:00)
--- NOTE | 2017-08-27 22:05 | PN ---
PROGRESS NOTE ATTENDING PHYSICIAN: Dr. Donis. CONSULTING PHYSICIAN: Dr. Maya Ascencio. CHIEF COMPLAINT: Re-evaluation. HISTORY OF PRESENT ILLNESS: This is an 87-year-old gentleman who was admitted to the hospital and undergone a tracheostomy for significant laryngeal edema. The patient has previous radiation for CA of the larynx. The patient is actually feeling fairly well. Did not sleep well last night. He normally takes Ativan at night for sleep. The patient otherwise denies any other symptoms. He is only able to communicate limited. REVIEW OF SYSTEMS: Neuro: Denies any headaches, dizziness. Psych no anxiety. Cardiac: Denies chest pain. Respiratory denies shortness breath. Some cough. GI no nausea, vomiting. Appetite okay. no symptoms. Extremities denies pain, edema. CONSTITUTIONAL: No fever or chills reported. PHYSICAL EXAMINATION: Pleasant gentleman in no distress. Vital signs reveals temperature 97.2, pulse 55, respirations 18, blood pressure 108/58, pulse ox 97%. HEENT: Normocephalic. Neck patient has a tracheostomy, fresh tracheostomy. Chest is mild generalized decreased air flow. Occasional rhonchi, which clear with cough. Cardiac distant. HEART: Sounds S1, S2 with no gallop. Systolic murmur 2/6 left sternal border. ABDOMEN: Soft. Bowel sounds present. Extremities are no edema. No tenderness. Neurological awake, alert, appears oriented with well-coordinated movements both upper lower extremities. LABORATORY ASSESSMENT: CBC which revealed a hemoglobin of 8.3, which is probably more accurate than yesterday's hemoglobin. Blood sugar is adequately controlled. ASSESSMENT: 1. Carcinoma of the larynx. 2. Status post tracheostomy for laryngeal edema. 3. Anemia. 4. Hypertension. 5. Remote history of deep vein thrombosis and pulmonary embolism. PLAN: The patient at present is stable. Continue present medical regimen. Patient's condition discussed with the patient. Prognosis is guarded. We will resume the patient's Ativan. The patient also will have a repeat CBC in the morning. Prognosis guarded. MMODL / IJN: [id number] /
[2017-08-27] MEDS: methylPREDNISolone SOD SUCCI 125 MG/2 ML VIAL IV SCH (23:07)
[2017-08-28] MEDS: ACETAMINOPHEN TAB 325 MG TAB PO PRN (00:10)
[2017-08-28 07:34] LABS: Glucose,Whole Blood 143 mg/dL (75-99)
[2017-08-28] MEDS: ATENOLOL 50 MG TAB PO SCH (09:17)
[2017-08-28] MEDS: PANTOPRAZOLE 40 MG TABLET PO SCH (09:17)
[2017-08-28] MEDS: LISINOPRIL 10 MG TAB PO SCH (09:17)
[2017-08-28] MEDS: INSULIN ASPART 100 UNIT/ML 1 ML 10 ML VIAL SQ SCH ×2 (09:18→13:01)
[2017-08-28] MEDS: cefTRIAXone IN SWFI 1,000 MG/10 ML SYRINGE IVP SCH (09:18)
[2017-08-28] MEDS: HEPARIN SODIUM,PORCINE 5,000 UNIT/ML 1 ML VIAL SQ SCH (09:18)
--- NOTE | 2017-08-28 11:23 | P.PN ---
Subjective Progress Note Date: 08/28/17 Principal diagnosis: History of laryngeal/vocal cord cancer, status post chemotherapy and radiation therapy, status post tracheostomy, postop day 2 87-year-old male who was seen in the office of the ear nose and throat doctor. The patient apparently developed some respiratory distress with stridor. The patient has been unable to sleep for a couple days because of the breathing difficulty. He is on was not able to even speak. 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 The patient had a tracheostomy performed yesterday. He is postop day #1. Transferred back here to the ICU on a trach collar. Seemed pretty stable. He did receive 1 unit of packed red blood cells. Currently he's got an IV of dextrose half- normal saline with 20 of potassium chloride at 80 mL an hour. The trach collar is 35%. He was admitted on August 25, which is yesterday. This morning, the patient's rather sleepy. Doesn't appear to have any distress or issues. No complaints. Minimal pain in the neck area. His past medical history is positive for the laryngeal/vocal cord cancer, acid reflux disease, hypertension , osteoarthritis, pulmonary embolism, anxiety, and he is status post both radiation and chemotherapy for his cancer. He's also had right hip replacement. Medications are reviewed. On 08/27/2017 patient seen again in follow-up. He sitting up in the chair, in no acute distress, 35% trach collar with O2 sat at 97%. Patient is afebrile, his other vital signs stable. There is some moderate amount of yellowish blood- tinged secretions he is bringing up through his tracheostomy. Lung sounds are positive for some scattered rhonchi, but good air entry noted bilaterally. Patient is tolerating soft foods diet. He denies any acute complaints, denies any fever, denies any chills any chest pain. He continues on IV Solu-Medrol, and Rocephin per ENT service. On 08/28/2017 patient seen again in follow-up. He sitting up in the chair, in no acute distress. He denies any dyspnea, lung sounds are positive for a few scattered rhonchi, patient has been able to expectorate the phlegm through the tracheostomy, small amount of greenish phlegm. He remains on 30% trach collar with O2 sat at 99 percent. Vital signs are stable, he is afebrile. Anticipate discharge today. Objective - Vital Signs Vital signs: Vital Signs Temp 97.4 F L 08/28/17 07:00 Pulse 72 08/28/17 07:00 Resp 18 08/28/17 07:00 BP 107/55 08/28/17 07:00 Pulse Ox 94 L 08/28/17 07:00 Intake & Output 08/27/17 08/28/17 08/28/17 18:59 06:59 18:59 Intake Total 840 400 Balance 840 400 Intake: IV 400 Sodium Chloride 0.9% 1, 400 000 ml @ 60 mls/hr IV . [id number] [facility] Rx#:[id number] Oral 440 400 Other: # Voids 1 - Exam No acute distress, oriented 3. HEENT examination is grossly unremarkable. Mucous membranes are moist. No oral lesions. Neck supple. Full range of motion. No adenopathy thyromegaly or neck vein distention. Fresh midline tracheostomy is noted. Trach collar is noted. There is moderate amount of green, secretions noted from the tracheostomy Cardiovascular examination reveals regular rhythm rate. S1-S2 normal. No S3 or S4. No discernible murmur noted. Lungs reveal scattered rhonchi bilaterally. Equal breath sounds are equal bilaterally. No adventitious lung sounds including wheezes or crackles. Abdomen soft bowel sounds are heard. No masses or tenderness. Extremities are intact. No cyanosis clubbing or edema. Skin is without rash or lesion. Neurologic examination is brief but nonfocal. - Labs CBC & Chem 7: 08/27/17 08:47 08/26/17 06:46 Labs: Abnormal Lab Results - Last 24 Hours (Table) 08/27/17 08/27/17 08/27/17 Range/Units 12:23 17:05 20:39 POC Glucose (mg/dL) 118 H 119 H 116 H (75-99) mg/dL Magnesium (1.6-2.3) mg/dL 08/28/17 08/28/17 Range/Units 07:25 08:41 POC Glucose (mg/dL) 143 H (75-99) mg/dL Magnesium 1.4 L (1.6-2.3) mg/dL Assessment and Plan Plan: Assessment: History of laryngeal/vocal cord cancer, status post chemotherapy and radiation therapy, with developing shortness of breath and stridor, postop day #3 status post tracheostomy History of gastroesophageal reflux disease History of hypertension History of osteoarthritis History of pulmonary most him History of anxiety Plan: Patient is doing well, remains stable from pulmonary standpoint. Home oxygen is being set up with FiO2 of 24% for humidification of his tracheostomy. Education will be provided for the patient and his regarding the care of his tracheostomy. He denies any dyspnea, lung sounds are positive for a few scattered rhonchi which the patient is able to expectorate phlegm through the tracheostomy. Vital signs are stable. Anticipate discharge home today once the arrangements are all in place for home supplies and oxygen. Antibiotics and steroids per ENT service. I performed a history & physical examination of the patient and discussed their management with my nurse practitioner, Parris Grimes. I reviewed the nurse practitioner's note and agree with the documented findings and plan of care. Lung sounds are positive for scattered rhonchi. The findings and the impression was discussed with the patient. I attest to the documentation by the nurse practitioner. Time with Patient: Less than 30
[2017-08-28 12:16] LABS: Glucose,Whole Blood 123 mg/dL (75-99)
[2017-08-28] MEDS: SODIUM CHLORIDE 0.9% 1,000 ML IV SCH (13:01)
[2017-08-28 14:05] VITALS: BMI 24.6
[2017-08-28 15:13] VITALS: BP 125/58; PULSE 62; RESP 16; TEMP 96.7
--- NOTE | 2017-08-29 09:25 | PN ---
PROGRESS NOTE DATE OF SERVICE: 08/28/2017 CHIEF COMPLAINT: Re-evaluation. HISTORY OF PRESENT ILLNESS: This is a 87-year-old gentleman was status post tracheostomy on an urgent basis. The patient has had a history of CA of the larynx previously treated. The patient had significant laryngeal edema and required this tracheostomy. He is actually feeling much better. His breathing has improved and overall he looks better. REVIEW OF SYSTEMS: NEURO: Denies any headaches or dizziness. PSYCH: Appears happy and content. CARDIAC: Denies chest pain. RESPIRATORY: Denies shortness of breath. Does have some cough. GI: No nausea, vomiting. Eating well. No abdominal pain or diarrhea. : No symptoms. EXTREMITIES: Mild chronic edema. CONSTITUTIONAL: No fever or chills. PHYSICAL EXAM: Pleasant gentleman in no distress, sitting on the bedside. Vital signs reveal temperature 97.4, pulse 72, respirations 18, blood pressure 107/55, pulse ox 94%. HEENT: Normocephalic. Neck with tracheostomy. CHEST: Improved air flow. Occasional rhonchi, scattered. CARDIAC: Distant heart sounds, S1, S2 with no gallops or murmurs. ABDOMEN: Soft. Bowel sounds present. EXTREMITIES: Trace edema right ankle. NEUROLOGICAL: Awake, alert, oriented with well-coordinated movements. LABORATORY ASSESSMENT: Accu-Chek of 143. PLAN: Continue present medical regimen. Patient's condition discussed with the patient. Prognosis is guarded. Potential discharge home today. MMODL / IJN: [id number] /
== END 2017-08-28 16:04 | disposition home health service (06) | DRG 4 ==
LOC: EC 15:18 → 6SEL 17:30 → 6ICU 20:12 → 4MS4W 08-26 19:14
PROVIDERS: ADMIT Otolaryngology; ATTEND Otolaryngology
PROC: 0B110F4 Bypass Trachea to Cutaneous with Tracheostomy Device, Open Approach (ICD-10-PCS; principal; 2017-08-25 10:45)
PROC: 0CBS8ZX Excision of Larynx, Via Natural or Artificial Opening Endoscopic, Diagnostic (ICD-10-PCS; 2017-08-25 10:45)
PROC: 30233N1 Transfusion of Nonautologous Red Blood Cells into Peripheral Vein, Percutaneous Approach (ICD-10-PCS; 2017-08-26)
DX: J98.8 Other specified respiratory disorders (principal); J38.4 Edema of larynx; D64.9 Anemia, unspecified; J44.9 Chronic obstructive pulmonary disease, unspecified; R06.1 Stridor; J39.2 Other diseases of pharynx; J04.0 Acute laryngitis; K21.9 Gastro-esophageal reflux disease without esophagitis; I10 Essential (primary) hypertension; F41.9 Anxiety disorder, unspecified; K57.30 Diverticulosis of large intestine without perforation or abscess without bleeding; R73.9 Hyperglycemia, unspecified; M19.91 Primary osteoarthritis, unspecified site; N40.0 Benign prostatic hyperplasia without lower urinary tract symptoms; Z79.899 Other long term (current) drug therapy; Z96.641 Presence of right artificial hip joint; Z92.3 Personal history of irradiation; Z86.711 Personal history of pulmonary embolism; Z92.21 Personal history of antineoplastic chemotherapy; Z85.21 Personal history of malignant neoplasm of larynx; Z86.718 Personal history of other venous thrombosis and embolism; Z87.891 Personal history of nicotine dependence; Y84.2 Radiological procedure and radiotherapy as the cause of abnormal reaction of the patient, or of later complication, without mention of misadventure at the time of the procedure
CPT/HCPCS: 80053; 83735; 84100; 85025; 86850; 86900; 86901; 86920; 88305; 88312

== ENCOUNTER → 2019-02-04 | Outpatient (CLI) | payer MEDICARE ==
--- NOTE | 2019-02-04 11:38 | US ---
EXAMINATION TYPE: US chest DATE OF EXAM: 02/04/2019 COMPARISON: Chest x-ray and CT from one week ago. CLINICAL HISTORY: J90 Pleural Effusion. Right pleural effusion. TECHNIQUE: Targeted ultrasound of the posterior lower right hemithorax EXAM MEASUREMENTS: Right Pleural Effusion pocket size: 16.4 cm Right skin surface to fluid distance: 2.5 Right side marked for possible thoracentesis outside the dept. Pulmonologists are able to review the images in the patient?s EMR. Right side marked for thoracentesis. Lung tissue visualized at 7.9 cm in pocket of fluid. IMPRESSIONS: Fairly moderate to large right-sided pleural effusion remains present on 6 images saved with no significant left-sided effusion noted.
[2019-02-04 15:38] LABS: Appearance,BF Cloudy; Nucleated Cells, Body Fluid 1400 /uL; RBC, Body Fluid 12160 /uL
[2019-02-04 15:39] LABS: Mononuclear WBC,Body Fluid 96 %; Polynuclear WBC,Body Fluid 3 %; Total Cells Counted,Body Fluid 100
[2019-02-04 18:31] LABS: Total Protein, Body Fluid 4300 mg/dL
== END | disposition home or self-care (01) ==
LOC: RADUSWWP 11:02
PROVIDERS: ATTEND Internal Medicine Critical Care Medicine
DX: J90 Pleural effusion, not elsewhere classified (principal)
CPT/HCPCS: 32554; 71045; 76604; 82945; 83615; 84157; 87070; 87102; 87116; 87205; 87206; 87252; 87496; 87498; 87502; 87529; 87634; 87798; 88108; 88305; 89050

== ENCOUNTER → 2019-02-04 | Day surgery (SDC) | payer MEDICARE ==
[2019-02-04 11:54] VITALS: TEMP 98.1
[2019-02-04 12:35] VITALS: BP 136/78; PULSE 97; RESP 20
--- NOTE | 2019-02-04 12:45 | XR ---
EXAMINATION TYPE: XR chest 1V portable DATE OF EXAM: 02/04/2019 COMPARISON: Chest x-ray and outside CT 1 week ago. HISTORY: Right-sided pleural effusion status post thoracentesis TECHNIQUE: Single AP portable frontal upright view of the chest is obtained. FINDINGS: There is some improvement in right-sided effusion after thoracentesis without pneumothorax . Associated right basilar atelectasis is redemonstrated. No mediastinal shift. Left lung remains james ar. The cardiac silhouette size remains enlarged with atherosclerotic aorta. The osseous structures are intact. IMPRESSION: No pneumothorax after right-sided thoracentesis.
--- NOTE | 2019-02-04 13:15 | PCN ---
PROCEDURE NOTE PROCEDURE: Right thoracentesis. PREOPERATIVE DIAGNOSIS: Symptomatic right pleural effusion. POSTOPERATIVE DIAGNOSIS: Symptomatic right pleural effusion. Indication Pleural effusion. A time-out was completed verifying correct patient, procedure, site, positioning, and implant (s) or special equipment if applicable. Ultrasound guidance was used and appropriate fluid pocket was identified and marked. Patient was positioned, prepped and draped in usual sterile fashion. Lidocaine was used to anesthetize the area. A Thoracentesis catheter was introduced into the pleural space and fluid was removed. Blood loss was none. A chest x-ray was ordered to evaluate for pneumothorax. Total Fluid Removed 1950 mL Color of Fluid Dark brown/bloody fluid Fluid was sent for appropriate laboratory tests. Patient tolerated the procedure well and there were no complications. The patient will have a chest x-ray to make sure there was no complications. There was no immediate complications and he did tolerate the procedure well. There was universal timeout. There was informed consent. The was in the room when the procedure was done. Again, there were no issues. MMODL / IJN: [id number] /
== END ==
LOC: PROCWHC3 11:23
PROVIDERS: ATTEND Internal Medicine Critical Care Medicine
DX: J90 Pleural effusion, not elsewhere classified (principal); Z79.899 Other long term (current) drug therapy; J44.9 Chronic obstructive pulmonary disease, unspecified; I25.10 Atherosclerotic heart disease of native coronary artery without angina pectoris; Z85.21 Personal history of malignant neoplasm of larynx; K21.9 Gastro-esophageal reflux disease without esophagitis; N40.0 Benign prostatic hyperplasia without lower urinary tract symptoms; I10 Essential (primary) hypertension; M19.90 Unspecified osteoarthritis, unspecified site; K57.30 Diverticulosis of large intestine without perforation or abscess without bleeding; Z87.891 Personal history of nicotine dependence
CPT/HCPCS: 32554; 71045; 88108; 88305

== ENCOUNTER 2019-02-26 10:50 | Day surgery (SDC) | payer MEDICARE ==
[2019-02-23 10:14] VITALS: BMI 24.3
[~2019-02-26 10:50] MED LIST: ALBUTEROL NEB (CONC) 2.5 MG/0.5 ML INHALATION ONE; ATROPINE SULFATE 0.4 MG/ML 1 ML VIAL IM ONE; LACTATED RINGERS 1,000 ML IV SCH; LIDOCAINE 2% (PF) 20 MG/ML 5 ML VIAL INHALATION ONE; LIDOCAINE VISCOUS 300 MG/15 ML CUP MUCOUS MEM ONE; SODIUM CHLORIDE 0.9% 1,000 ML IV SCH
[2019-02-26 11:13] VITALS: TEMP 97.6
[2019-02-26] MEDS ORDERED: PROPOFOL 10 MG/ML 20 ML VIAL IV ONE (11:59)
[2019-02-26] MEDS ORDERED: KETAMINE 10 MG/ML 20 ML VIAL ONE (11:59)
[2019-02-26] MEDS ORDERED: LIDOCAINE 1% INJ 10MG/ML (20 ML MDV) ONE (11:59)
[2019-02-26] MEDS ORDERED: MIDAZOLAM 2 MG/2 ML VIAL ONE (11:59)
[2019-02-26] MEDS ORDERED: LIDOCAINE 2% INJ 20 MG/ML INTRATRACH ONE (12:20)
[2019-02-26 12:45] VITALS: BP 116/68; PULSE 98; RESP 18
--- NOTE | 2019-02-26 12:56 | PCN ---
PROCEDURE NOTE WELT INSOLE CHANNELER: Dr. Sanchez. PROCEDURE: Bronchoscopy. ANESTHESIA: Anesthesia provided general anesthesia unconscious sedation there was informed consent and universal timeout. PREOP DIAGNOSIS: An is potential mass, right lower lobe, subglottic stenosis. POSTOP DIAGNOSIS: Same. PROCEDURE: Was a bronchoscopy airway examination, therapeutic lavage, BAL right lower lobe, brushes right lower lobe endobronchial biopsies right lower lobe. After the patient was adequately sedated and being fully monitored, the bronchoscope was inserted through the right nostril. It passed through the right nasopharynx into the oropharynx. The hypopharynx was identified and top like. Anterior commissure, true cords, false cords, arytenoids, piriform sinuses, right and left vallecula and epiglottis all appeared relatively normal. After topicalization, the bronchoscope was pushed through the glottic opening into the trachea. 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 This may be causing the patient some of his difficulty in breathing. Next, after topicalization of the trachea, the bronchoscope was pushed down to the tracheal kael which was sharp. Right and left mainstem were topicalized. The right upper lobe and its 3 segments, right lower lobe and its 2 segments, the left upper lobe proper and its 2 segments the lingula and its 2 segments and the left lower lobe and its 4 segments all appeared relatively normal. On the left, the right lower lobe of area showed some potential obstruction and blockage in one of the segments. It could be normal mucosa. Hard to determine. Anyway, this area was brushed and washed. There was endobronchial biopsies performed as well. It did look like it was primarily involving the anterior bronchopulmonary segment of the right lower lobe and also the medial bronchopulmonary segment of the right lower lobe. Again, no distinct mass was noted just looks like the mucosa was seen in the lower lobe regular. There was no significant bleeding. The patient tolerated the procedure well. Afterwards, we made sure there was adequate hemostasis and the bronchoscope was withdrawn. There was no immediate complication. The patient will be recovered. An. PRINGLE / LEAH: [id number] /
[2019-02-26 16:19] LABS: Appearance,BF Blood Tinged; Color,BF Pink; Nucleated Cells, Body Fluid 244 /uL; RBC, Body Fluid 14350 /uL
[2019-02-26 16:22] LABS: Mononuclear WBC,Body Fluid 89 %; Polynuclear WBC,Body Fluid 11 %; Total Cells Counted,Body Fluid 100
== END 2019-02-26 13:02 | disposition home or self-care (01) ==
LOC: ORWHC2ENDO 10:50
PROVIDERS: ATTEND Internal Medicine Critical Care Medicine
DX: R06.02 Shortness of breath (principal); J44.9 Chronic obstructive pulmonary disease, unspecified; I10 Essential (primary) hypertension; F41.9 Anxiety disorder, unspecified; M10.9 Gout, unspecified; E78.5 Hyperlipidemia, unspecified; D64.9 Anemia, unspecified; I25.10 Atherosclerotic heart disease of native coronary artery without angina pectoris; K21.9 Gastro-esophageal reflux disease without esophagitis; N40.0 Benign prostatic hyperplasia without lower urinary tract symptoms; M19.90 Unspecified osteoarthritis, unspecified site; Z98.890 Other specified postprocedural states; Z96.641 Presence of right artificial hip joint; Z79.899 Other long term (current) drug therapy; Z87.19 Personal history of other diseases of the digestive system; Z87.891 Personal history of nicotine dependence; Z85.21 Personal history of malignant neoplasm of larynx; Z92.3 Personal history of irradiation
CPT/HCPCS: 94640; 88104; 88108; 88305; 89050; 31625; 31623; 31624; J2001 ×3; J2250; J0461; J2704

== ENCOUNTER 2019-03-02 09:06 | Emergency (ER) | payer MEDICARE ==
[2019-03-02 09:15] VITALS: TEMP 97.6
--- NOTE | 2019-03-02 09:41 | XR ---
EXAMINATION TYPE: XR chest 2V DATE OF EXAM: 03/02/2019 COMPARISON: Outside chest CT January 28, 2019. Two view chest xray February 22, 2019 HISTORY: Shortness of breath. Recurrent right-sided effusions. TECHNIQUE: Frontal and lateral views of the chest are obtained. FINDINGS: There is moderate right-sided pleural effusion or fluid collection increased in size from most recent x-ray. Associated compressive atelectasis is present. No mediastinal shift is seen. The cardiac silhouette size is stable and now upper limits of normal. New patchy left basilar opacity tho ught present. No left-sided effusion is seen. The osseous structures are intact. IMPRESSION: Moderate-sized right pleural fluid collection or effusion increased in size from x-ray 8 days earlier. No new mediastinal shift. New patchy left basilar acute infiltrate and/or atelectasis is noted.
--- NOTE | 2019-03-02 09:42 | ED ---
General Adult HPI - General Chief complaint: Shortness of Breath Stated complaint: Sob/fluid on rt lung Time Seen by Provider: 03/02/19 09:17 Source: patient Mode of arrival: wheelchair Limitations: no limitations, physical limitation - History of Present Illness Initial comments: Dictation was produced using [employer] dictation software. please excuse any grammatical, word or spelling errors. Chief Complaint: 89-year-old male with past medical history of right pleural effusion presents with dyspnea. History of Present Illness: His 89-year-old male he is past medical history of pulmonary embolus hypertension GERD. Presents today with worsening shortness of breath. Patient has been progressively short of breath over the last several days. Patient has pleural effusion that have been ongoing for the last month. His first paracentesis was a month ago. He had another thoracentesis performed 3 weeks ago. Patient had bronchoscopy last week. Patient and family member reported that it's unclear why patient has these recurring pleural effusions. Patient denies any fever, chills or night sweats. Patient's called saas architect Dr. Parkinson's office earlier today and was told to come to the emergency department to have his pleural effusion drained by Dr. Fairbanks. The ROS documented in this emergency department record has been reviewed and confirmed by me. Those systems with pertinent positive or negative responses have been documented in the HPI. All other systems are other negative and/or noncontributory. PHYSICAL EXAM: General Impression: Alert and oriented x3, mildly dyspneic HEENT: Normocephalic atraumatic, extra-ocular movements intact, pupils equal and reactive to light bilaterally, mucous membranes moist. Cardiovascular: Heart regular rate and rhythm, S1&S2 audible, no murmurs, rubs or gallops Chest: Diminished lung sounds in the right lung base Abdomen: Bowel sounds present, abdomen soft, non-tender, non-distended, no organomegaly Musculoskeletal: Pulses present and equal in all extremities, no peripheral edema Motor: no focal deficits noted Neurological: CN II-XII grossly intact, no focal motor or sensory deficits noted Skin: Intact with no visualized rashes Psych: Normal affect and mood ED course: 89-year-old male presents with chief complaint dyspnea. 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 Signs upon arrival are within acceptable limits. He is however mildly tachypneic and showing some signs of respiratory distress. Discussed patient case with Dr. Fairbanks who says he is unable to do the thoracentesis so given that he has other things to attend to an intensive care unit at this time.Chest x-ray shows moderate-sized right pleural effusion. Extremities earlier. Chest ultrasound was ordered showing a right pleural effusion. Interventional radiology performed thoracentesis with removal of large amount of pleural fluid. Patient appears well at this time. Discussed patient case Dr. Randhawa who reports that after thoracentesis patient can be discharged if he is in stable clinical condition. Patient ambulated around the emergency department and feels that his shortness of breath to significantly improved. Postprocedure imaging was obtained showing no acute processes. Patient to be discharge. Told to follow up with saas architect. Return parameters discussed. EKG interpretation: Ventricular rate 106, sinus tachycardia, OH interval 176, QRS 90, QTC 491. No OH prolongation, no QTC prolongation, no ST or T-wave changes noted. . Overall, this EKG is unremarkable - Related Data Home Medications Medication Instructions Recorded Confirmed Acetaminophen [Tylenol Extra 1,000 mg PO BID PRN 08/25/17 03/02/19 Strength] Multivitamin/Iron/Folic Acid 1 tab PO DAILY 08/25/17 03/02/19 [Centrum Complete Multivit Tab] Omeprazole [PriLOSEC] 20 mg PO DAILY 08/25/17 03/02/19 Tamsulosin HCl [Flomax] 0.4 mg PO HS 08/25/17 03/02/19 amLODIPine BESYLATE/BENAZEPRIL 1 cap PO DAILY 08/25/17 03/02/19 [amLODIPine BESYLATE/BENAZEPRIL 10-40 mg] ALPRAZolam [Xanax] 0.25 mg PO BID PRN 02/23/19 03/02/19 Melatonin 5 mg PO HS 02/23/19 03/02/19 Thiamine [Vitamin B-1] 100 mg PO DAILY 02/23/19 03/02/19 Ferrous Sulfate [Feosol] 325 mg PO DAILY 02/25/19 03/02/19 Levothyroxine Sodium [Synthroid] 25 mcg PO DAILY 02/25/19 03/02/19 Furosemide [Lasix] 20 mg PO DAILY 03/02/19 03/02/19 Potassium Chloride [Klor-Con 10] 10 meq PO DAILY 03/02/19 03/02/19 Allergies Allergy/AdvReac Type Severity Reaction Status Date / Time No Known Allergies Allergy Verified 03/02/19 09:29 Review of Systems ROS Statement: Those systems with pertinent positive or pertinent negative responses have been documented in the HPI. ROS Other: All systems not noted in ROS Statement are negative. Past Medical History Past Medical History: Cancer, GERD/Reflux, Hypertension, Osteoarthritis (OA), Pulmonary Embolus (PE) Additional Past Medical History / Comment(s): throat cancer RADIATION CHEMOTHERAPY completed. states that pt's throat collapsed after tx and required trach for 11 months, and that currently pt is experiencing rt lung filling with fluid History of Any Multi-Drug Resistant Organisms: None Reported Past Surgical History: Orthopedic Surgery Additional Past Surgical History / Comment(s): RIGHT HIP REPLACEMENT. trach Past Anesthesia/Blood Transfusion Reactions: No Reported Reaction Additional Past Anesthesia/Blood Transfusion Reaction / Comment(s): HAD 2 UNITS DURING CHEMO AT [facility] Past Psychological History: No Psychological Hx Reported Smoking Status: Former smoker Past Alcohol Use History: Daily Past Drug Use History: None Reported - Past Family History Father Family Medical History: Cancer Additional Family Medical History / Comment(s): KIDNEY CANCER Mother Family Medical History: Myocardial Infarction ([place]), Respiratory Disorder General Exam Limitations: no limitations, physical limitation Course Vital Signs 03/02/19 03/02/19 03/02/19 09:13 10:22 11:20 Temperature 97.6 F Pulse Rate 90 89 Pulse Rate [ 102 H Pulse Oximetery ] Respiratory 22 25 H 22 Rate Blood Pressure 150/73 143/90 Blood Pressure 125/79 [Left Arm] O2 Sat by Pulse 94 L 96 90 L Oximetry 03/02/19 12:39 Temperature Pulse Rate 100 Pulse Rate [ Pulse Oximetery ] Respiratory 22 Rate Blood Pressure 129/84 Blood Pressure [Left Arm] O2 Sat by Pulse 95 Oximetry Medical Decision Making - Lab Data Result diagrams: 03/02/19 09:35 03/02/19 09:35 Lab Results 03/02/19 03/02/19 03/02/19 Range/Units 09:35 09:35 09:35 WBC 8.3 (3.8-10.6) k/uL RBC 2.85 L (4.30-5.90) m/uL Hgb 8.4 L (13.0-17.5) gm/dL Hct 25.1 L (39.0-53.0) % MCV 88.2 (80.0-100.0) fL MCH 29.5 (25.0-35.0) pg MCHC 33.4 (31.0-37.0) g/dL RDW 14.6 (11.5-15.5) % Plt Count 434 (150-450) k/uL Neutrophils % 74 % Lymphocytes % 15 % Monocytes % 7 % Eosinophils % 2 % Basophils % 0 % Neutrophils # 6.2 (1.3-7.7) k/uL Lymphocytes # 1.3 (1.0-4.8) k/uL Monocytes # 0.6 (0-1.0) k/uL Eosinophils # 0.1 (0-0.7) k/uL Basophils # 0.0 (0-0.2) k/uL PT 10.8 (9.0-12.0) sec INR 1.0 (<1.2) APTT 28.2 (22.0-30.0) sec Sodium 130 L (137-145) mmol/L Potassium 3.5 (3.5-5.1) mmol/L Chloride 93 L (98-107) mmol/L Carbon Dioxide 23 (22-30) mmol/L Anion Gap 14 mmol/L BUN 20 (9-20) mg/dL Creatinine 0.91 (0.66-1.25) mg/dL Est GFR (CKD-EPI)AfAm 87 (>60 ml/min/1.73 sqM) Est GFR (CKD-EPI)NonAf 76 (>60 ml/min/1.73 sqM) Glucose 99 (74-99) mg/dL Calcium 7.6 L (8.4-10.2) mg/dL Disposition Clinical Impression: Pleural effusion Disposition: HOME SELF-CARE Condition: Good Instructions (If sedation given, give patient instructions): Pleural Effusion (ED) Is patient prescribed a controlled substance at d/c from ED?: No Referrals: Mohan Sanchez DO [Doctor of Osteopathic Medicine] - 1-2 days Time of Disposition: 12:47
[2019-03-02 10:06] LABS: Calcium 7.6 mg/dL (8.4-10.2); Partial Thromboplastin Time 28.2 sec (22.0-30.0); Potassium 3.5 mmol/L (3.5-5.1); Prothrombin Time 10.8 sec (9.0-12.0)
[2019-03-02 10:23] LABS: Basophils % (A) 0 %; Eosinophils # (A) 0.1 k/uL (0-0.7); Eosinophils % (A) 2 %; HCT 25.1 % (39.0-53.0); HGB 8.4 gm/dL (13.0-17.5); Lymphocytes # (A) 1.3 k/uL (1.0-4.8); Lymphocytes % (A) 15 %; MCH 29.5 pg (25.0-35.0); MCHC 33.4 g/dL (31.0-37.0); MCV 88.2 fL (80.0-100.0); Mean Platelet Volume 6.5; Monocytes # (A) 0.6 k/uL (0-1.0); Monocytes % (A) 7 %; Neutrophils # (A) 6.2 k/uL (1.3-7.7); Neutrophils % (A) 74 %; Platelet Count 434 k/uL (150-450); RBC 2.85 m/uL (4.30-5.90); RDW 14.6 % (11.5-15.5); WBC 8.3 k/uL (3.8-10.6)
--- NOTE | 2019-03-02 10:56 | US ---
EXAMINATION TYPE: US chest DATE OF EXAM: 03/02/2019 COMPARISON: Chest x-ray earlier today. CLINICAL HISTORY: Pain. Right pleural effusion TECHNIQUE: Targeted ultrasound of the posterior lower right hemithorax EXAM MEASUREMENTS: Right Pleural Effusion pocket size: 11.3 cm Right skin surface to fluid distance: 2.3 cm Multiple septations and debris seen within fluid pocket Right side MARKED for possible thoracentesis outside the dept. Pulmonologists are able to review the images in the patient?s EMR. IMPRESSIONS: Confirmation of recurrent moderate to large size right pleural effusion which is nonsimp le in appearance as is not completely anechoic.
--- NOTE | 2019-03-02 12:35 | XR ---
EXAMINATION TYPE: XR chest 1V portable DATE OF EXAM: 03/02/2019 Comparison: 03/02/2019 Clinical History: 89-year-old male post right thoracentesis Findings: Right heart margin obscured by adjacent pleural parenchymal opacity. Residual moderate sized right pl eural effusion, decreased from prior. No appreciable pneumothorax. Improved aeration at the left base . Impression: Residual moderate right pleural effusion after thoracentesis. No appreciable pneumothorax.
[2019-03-02 12:41] VITALS: RESP 22
[2019-03-02 12:48] VITALS: PULSE 99
[2019-03-02 12:50] VITALS: BP 128/79
--- NOTE | 2019-03-02 13:07 | US ---
EXAMINATION TYPE: US thoracentesis DATE OF EXAM: 03/02/2019 COMPARISON: Ultrasound chest 03/02/2019 HISTORY: Pleural effusion. FINDINGS: Maximal barrier technique was utilized. The skin overlying a suitable pocket of fluid was localized and the overlying skin prepped and draped. Lidocaine was used for local anesthesia. Ultras ound was used with sterile technique. A 5 Filipino catheter over guide needle was advanced into the pl eural fluid collection using ultrasound guidance and the catheter advanced, needle removed. Approxim ately 1.2 liter(s) of serous justa fluid was removed. Catheter was withdrawn and hemostasis achieved . There is no immediate complication. The patient discharged in stable condition without complicati on. IMPRESSION: STATUS POST ULTRASOUND GUIDED THORACENTESIS, POST PROCEDURE CHEST X-RAY PENDING. THIS MD OCEDURE WAS PERFORMED BY THE UNDERSIGNED. Of note the effusion appears loculated.
== END 2019-03-02 13:11 | disposition home or self-care (01) ==
LOC: EC 09:06
DX: J90 Pleural effusion, not elsewhere classified (principal); K21.9 Gastro-esophageal reflux disease without esophagitis; I10 Essential (primary) hypertension; M19.90 Unspecified osteoarthritis, unspecified site; Z96.641 Presence of right artificial hip joint; Z87.891 Personal history of nicotine dependence; Z85.818 Personal history of malignant neoplasm of other sites of lip, oral cavity, and pharynx; Z92.21 Personal history of antineoplastic chemotherapy; Z79.890 Hormone replacement therapy; Z79.899 Other long term (current) drug therapy
CPT/HCPCS: 32555; 36415; 71045; 71046; 76604; 80048; 85025; 85610; 85730; 93005; 99285

== ENCOUNTER 2019-03-07 10:34 | Inpatient (IN) | payer MEDICARE ==
[2019-03-07] MEDS ORDERED: FUROSEMIDE 10 MG/ML 2 ML VIAL IV ONE (11:04)
--- NOTE | 2019-03-07 11:16 | ED ---
General Adult HPI - General Chief complaint: Weakness Stated complaint: bilat leg weakness Time Seen by Provider: 03/07/19 10:40 Source: patient, RN notes reviewed Mode of arrival: wheelchair Limitations: no limitations - History of Present Illness Initial comments: This is an 89-year-old male with past medical history significant for pleural fusions needing thoracentesis. Patient states she's had it done twice now. Patient states he had the last one done on Friday and starting on Friday a little difficulty breathing but on Friday and Friday he gets significantly worse. Patient also states his weakness got so bad that he can barely stand because both his legs are weak. Patient denies any chest pain or palpitations. Patient denies any lightheadedness or dizziness per patient any headache patient denies numbness weakness. Patient denies any recent fever chills or cough. Patient denies abdominal pain patient denies nausea vomiting diarrhea. Patient denies any recent falls or trauma. Patient states the swelling in his legs of gotten worse over the last few weeks. - Related Data Home Medications Medication Instructions Recorded Confirmed Multivitamin/Iron/Folic Acid 1 tab PO DAILY 08/25/17 03/07/19 [Centrum Complete Multivit Tab] Omeprazole [PriLOSEC] 20 mg PO DAILY 08/25/17 03/07/19 Tamsulosin HCl [Flomax] 0.4 mg PO HS 08/25/17 03/07/19 amLODIPine BESYLATE/BENAZEPRIL 1 cap PO DAILY 08/25/17 03/07/19 [amLODIPine BESYLATE/BENAZEPRIL 10-40 mg] Thiamine [Vitamin B-1] 100 mg PO DAILY 02/23/19 03/07/19 Ferrous Sulfate [Feosol] 325 mg PO DAILY 02/25/19 03/07/19 Furosemide [Lasix] 20 mg PO DAILY 03/02/19 03/07/19 Potassium Chloride [Klor-Con 10] 10 meq PO DAILY 03/02/19 03/07/19 Acetaminophen/Diphenhydramine 1 tab PO HS 03/07/19 03/07/19 [Tylenol PM 500-25mg] Levothyroxine Sodium [Synthroid] 50 mcg PO DAILY 03/07/19 03/07/19 Allergies Allergy/AdvReac Type Severity Reaction Status Date / Time No Known Allergies Allergy Verified 03/07/19 10:49 Review of Systems ROS Statement: Those systems with pertinent positive or pertinent negative responses have been documented in the HPI. ROS Other: All systems not noted in ROS Statement are negative. Past Medical History Past Medical History: Cancer, GERD/Reflux, Hypertension, Osteoarthritis (OA), Pulmonary Embolus (PE) Additional Past Medical History / Comment(s): throat cancer RADIATION CHEMOTHERAPY completed. states that pt's throat collapsed after tx and required trach for 11 months, and that currently pt is experiencing rt lung filling with fluid History of Any Multi-Drug Resistant Organisms: None Reported Past Surgical History: Orthopedic Surgery Additional Past Surgical History / Comment(s): RIGHT HIP REPLACEMENT. trach Past Anesthesia/Blood Transfusion Reactions: No Reported Reaction Additional Past Anesthesia/Blood Transfusion Reaction / Comment(s): HAD 2 UNITS DURING CHEMO AT [facility] Past Psychological History: No Psychological Hx Reported Smoking Status: Former smoker Past Alcohol Use History: Daily Past Drug Use History: None Reported - Past Family History Father Family Medical History: Cancer Additional Family Medical History / Comment(s): KIDNEY CANCER Mother Family Medical History: Myocardial Infarction ([place]), Respiratory Disorder General Exam - General Exam Comments Initial Comments: GENERAL: Patient is well-developed and well-nourished. Patient is nontoxic and well- hydrated and is in mild distress. ENT: Neck is soft and supple. No significant lymphadenopathy is noted. Oropharynx is clear. Moist mucous membranes. Neck has full range of motion without eliciting any pain. EYES: The sclera were anicteric and conjunctiva were pink and moist. Extraocular movements were intact and pupils were equal round and reactive to light. Eyelids were unremarkable. PULMONARY: Unlabored respirations. Patient has decreased breath sounds in the right base. No audible rales rhonchi or wheezing was noted. CARDIOVASCULAR: There is a regular rate and rhythm without any murmurs gallops or rubs. ABDOMEN: Soft and nontender with normal bowel sounds. No palpable organomegaly was n oted. There is no palpable pulsatile mass. SKIN: Skin is clear with no lesions or rashes and otherwise unremarkable. NEUROLOGIC: Patient is alert and oriented x3. Cranial nerves II through XII are grossly intact. Motor and sensory are also intact. Normal speech, volume and content. Symmetrical smile. MUSCULOSKELETAL: Normal extremities with adequate strength and full range of motion. 2+ edema bilaterally LYMPHATICS: No significant lymphadenopathy is noted PSYCHIATRIC: Normal psychiatric evaluation. Limitations: no limitations Course Vital Signs 03/07/19 03/07/19 10:41 11:01 Temperature 97.5 F L Pulse Rate 117 H 99 Respiratory 20 18 Rate Blood Pressure 153/76 149/94 O2 Sat by Pulse 96 95 Oximetry Medical Decision Making - Medical Decision Making EKG shows a sinus rhythm with occasional PACs. Patient's rate is 90 beats a minute OH interval appears to be 180. QRS is 96 QT interval 380 QTC is 474. Chest x-ray shows large right-sided pleural effusion with some atelectasis in the left base. I spoke with Dr. Roldan but remained patient admitted the patient wrote admitting orders. I gave the patient magnesium 2 g in the emergency department. Patient also received a small dose of Lasix because of pedal edema. I consult to Dr. Randhawa. - Lab Data Result diagrams: 03/07/19 11:13 03/07/19 11:13 Lab Results 03/07/19 03/07/19 03/07/19 Range/Units 11:13 11:13 11:13 WBC 9.3 (3.8-10.6) k/uL RBC 2.83 L (4.30-5.90) m/uL Hgb 8.4 L (13.0-17.5) gm/dL Hct 24.6 L (39.0-53.0) % MCV 86.9 (80.0-100.0) fL MCH 29.6 (25.0-35.0) pg MCHC 34.1 (31.0-37.0) g/dL RDW 14.6 (11.5-15.5) % Plt Count 377 (150-450) k/uL Neutrophils % 82 % Lymphocytes % 11 % Monocytes % 4 % Eosinophils % 1 % Basophils % 0 % Neutrophils # 7.6 (1.3-7.7) k/uL Lymphocytes # 1.1 (1.0-4.8) k/uL Monocytes # 0.4 (0-1.0) k/uL Eosinophils # 0.1 (0-0.7) k/uL Basophils # 0.0 (0-0.2) k/uL PT (9.0-12.0) sec INR (<1.2) APTT (22.0-30.0) sec Sodium 124 L (137-145) mmol/L Potassium 3.5 (3.5-5.1) mmol/L Chloride 88 L (98-107) mmol/L Carbon Dioxide 22 (22-30) mmol/L Anion Gap 14 mmol/L BUN 19 (9-20) mg/dL Creatinine 0.97 (0.66-1.25) mg/dL Est GFR (CKD-EPI)AfAm 82 (>60 ml/min/1.73 sqM) Est GFR (CKD-EPI)NonAf 71 (>60 ml/min/1.73 sqM) Glucose 137 H (74-99) mg/dL Plasma Lactic Acid Shayne 1.3 (0.7-2.0) mmol/L Calcium 7.2 L (8.4-10.2) mg/dL Magnesium 0.5 L* (1.6-2.3) mg/dL Total Bilirubin 0.6 (0.2-1.3) mg/dL AST 29 (17-59) U/L ALT 32 (21-72) U/L Alkaline Phosphatase 71 (38-126) U/L Troponin I (0.000-0.034) ng/mL NT-Pro-B Natriuret Pep pg/mL Total Protein 6.3 (6.3-8.2) g/dL Albumin 3.3 L (3.5-5.0) g/dL 03/07/19 03/07/19 03/07/19 Range/Units 11:13 11:13 11:13 WBC (3.8-10.6) k/uL RBC (4.30-5.90) m/uL Hgb (13.0-17.5) gm/dL Hct (39.0-53.0) % MCV (80.0-100.0) fL MCH (25.0-35.0) pg MCHC (31.0-37.0) g/dL RDW (11.5-15.5) % Plt Count (150-450) k/uL Neutrophils % % Lymphocytes % % Monocytes % % Eosinophils % % Basophils % % Neutrophils # (1.3-7.7) k/uL Lymphocytes # (1.0-4.8) k/uL Monocytes # (0-1.0) k/uL Eosinophils # (0-0.7) k/uL Basophils # (0-0.2) k/uL PT 11.3 (9.0-12.0) sec INR 1.1 (<1.2) APTT 27.1 (22.0-30.0) sec Sodium (137-145) mmol/L Potassium (3.5-5.1) mmol/L Chloride (98-107) mmol/L Carbon Dioxide (22-30) mmol/L Anion Gap mmol/L BUN (9-20) mg/dL Creatinine (0.66-1.25) mg/dL Est GFR (CKD-EPI)AfAm (>60 ml/min/1.73 sqM) Est GFR (CKD-EPI)NonAf (>60 ml/min/1.73 sqM) Glucose (74-99) mg/dL Plasma Lactic Acid Shayne (0.7-2.0) mmol/L Calcium (8.4-10.2) mg/dL Magnesium (1.6-2.3) mg/dL Total Bilirubin (0.2-1.3) mg/dL AST (17-59) U/L ALT (21-72) U/L Alkaline Phosphatase (38-126) U/L Troponin I 0.031 (0.000-0.034) ng/mL NT-Pro-B Natriuret Pep 2460 pg/mL Total Protein (6.3-8.2) g/dL Albumin (3.5-5.0) g/dL Critical Care Time Critical Care Time: Yes Total Critical Care Time: 35 Disposition Clinical Impression: Hyponatremia, Hypomagnesemia, Pleural effusion, Dyspnea, Pedal edema Disposition: ADMITTED IP TO THIS HOSP Referrals: Isaiah Ascencio MD [Primary Care Provider] - 1-2 days Time of Disposition: 12:36
[2019-03-07 11:25] LABS: Basophils % (A) 0 %; Eosinophils # (A) 0.1 k/uL (0-0.7); Eosinophils % (A) 1 %; HCT 24.6 % (39.0-53.0); HGB 8.4 gm/dL (13.0-17.5); Lymphocytes # (A) 1.1 k/uL (1.0-4.8); Lymphocytes % (A) 11 %; MCH 29.6 pg (25.0-35.0); MCHC 34.1 g/dL (31.0-37.0); MCV 86.9 fL (80.0-100.0); Mean Platelet Volume 6.5; Monocytes # (A) 0.4 k/uL (0-1.0); Monocytes % (A) 4 %; Neutrophils # (A) 7.6 k/uL (1.3-7.7); Neutrophils % (A) 82 %; Platelet Count 377 k/uL (150-450); RBC 2.83 m/uL (4.30-5.90); RDW 14.6 % (11.5-15.5); WBC 9.3 k/uL (3.8-10.6)
--- NOTE | 2019-03-07 11:33 | XR ---
EXAMINATION TYPE: XR chest 2V DATE OF EXAM: 03/07/2019 COMPARISON: Chest x-ray 5 days ago. HISTORY: Weakness. TECHNIQUE: Frontal and lateral views of the chest are obtained. FINDINGS: There is moderate to large right pleural effusion with associated compressive atelectasis. No mediastinal shift. Patchy left basilar atelectasis and/or infiltrate. The cardiac silhouette siz e is stable and mildly enlarged with atherosclerotic aorta. The osseous structures are intact. IMPRESSION: Mild cardiomegaly with patchy left basilar acute atelectasis and/or infiltrate. Stable m oderate size right pleural effusion. No significant change from prior.
[2019-03-07 11:36] LABS: INR 1.1 (<1.2); Partial Thromboplastin Time 27.1 sec (22.0-30.0); Prothrombin Time 11.3 sec (9.0-12.0)
[2019-03-07 11:43] LABS: Albumin 3.3 g/dL (3.5-5.0); Calcium 7.2 mg/dL (8.4-10.2); Potassium 3.5 mmol/L (3.5-5.1); Total Bilirubin 0.6 mg/dL (0.2-1.3); Total Protein 6.3 g/dL (6.3-8.2)
[2019-03-07 11:51] LABS: Magnesium 0.5 mg/dL (1.6-2.3)
[2019-03-07] MEDS: MAGNESIUM SULFATE-D5W PMX 1 GM in DEXTROSE/WATER 1 100ML.BAG IVPB SCH ×2 (12:36→13:48)
[2019-03-07 12:56] LABS: Appearance,Urine Clear (Clear); Bilirubin,Urine Negative (Negative); Blood,Urine Negative (Negative); Color,Urine Yellow; Glucose,Urine (UA) Negative (Negative); Ketones,Urine Negative (Negative); Leukocyte Esterase,Urine Negative (Negative); Nitrite,Urine Negative (Negative); PH, Urine 5.5 (5.0-8.0); Protein,Urine 1+ (Negative); RBC,Urine <1 /hpf (0-5); Specific Gravity,Urine 1.012 (1.001-1.035); Urobilinogen,Urine <2.0 mg/dL (<2.0); WBC,Urine <1 /hpf (0-5)
[2019-03-07 15:14] VITALS: BMI 23.1
[2019-03-07] MEDS ORDERED: ONDANSETRON 4 MG/2 ML VIAL IVP PRN (15:19)
[2019-03-07] MEDS ORDERED: POTASSIUM CHLORIDE ER 20 MEQ TAB.ER PO STA ×2 (15:22→21:26)
--- NOTE | 2019-03-07 15:29 | P.HPIM ---
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 On arrival to the emergency department he underwent an extensive evaluation. His initial heart rate was 117. Laboratory analysis showed a hemoglobin of 8.4, sodium 124, glucose 137, magnesium 0.5, and albumin 3.3. Chest x-ray showed left basilar acute atelectasis or infiltrate as well as a moderate right-sided pleural effusion with no significant change. He was started on magnesium and given 1 dose of Lasix in the emergency department. He developed acute urinary retention requiring a Gunter catheter to be placed with return of 800 cc of urine. Patient seen and examined at bedside. In the emergency department with present. He developed weakness for 3 days. This was sudden onset. The last several months he has been struggling with worsening shortness of breath. He has seen his PCP multiple times. Dr. Ascencio discovered a pleural effusion on the right. He initially had a thoracentesis done along with CAT scan on [facility]. He was then referred to Dr. Butler who did not feel surgery was indicated at this point in time but referred him to Dr. Sanchez. He underwent [address] Sanchez on 02/04 which was hemorrhagic in nature, he then underwent bronchoscopy on 02/26 pathology consistent with reactive cells but no signs of malignancy. Had worsening shortness of breath and underwent thoracentesis with interventional radiology on 03/02. He reports that since his bronchoscopy has had increasing clear phlegm production associated with a cough. He denies any fevers or chills. He reports that his shortness of breath is worse with exertion. He is no longer going able to walk to the bathroom without significant exertion. He started iron approximately one half weeks ago and started having loose frequent bowel movements. He denies any abdominal pain nausea or vomiting. His appetite has been intact. His reports that he started having some lower extremity edema one week ago. She started some Lasix they had at home approximately 4 days ago due to this. He also reports that he has been having increasing jerky movements over the last 3-4 days. He feels overall fatigued and tired and that his legs are heavy. He denies any chest pain, palpitations, strokelike symptoms, or significant weight loss. Review of Systems Pertinent positives and negatives as discussed in HPI, a complete review of systems was performed and all other systems are negative. Past Medical History Past Medical History: Cancer, GERD/Reflux, Hyperlipidemia, Hypertension, Osteoarthritis (OA), Pulmonary Embolus (PE) Additional Past Medical History / Comment(s): Laryngeal cancer RADIATION CHEMOTHERAPY completed. Hypothyroidism. BPH. GERD. Coronary artery disease. Anemia. Gout. Diverticulosis. History of Any Multi-Drug Resistant Organisms: None Reported Past Surgical History: Orthopedic Surgery Additional Past Surgical History / Comment(s): RIGHT HIP REPLACEMENT. trach. Tonsillectomy Past Anesthesia/Blood Transfusion Reactions: No Reported Reaction Additional Past Anesthesia/Blood Transfusion Reaction / Comment(s): HAD 2 UNITS DURING CHEMO AT [facility] Past Psychological History: No Psychological Hx Reported Smoking Status: Former smoker Past Alcohol Use History: Daily Past Drug Use History: None Reported Additional History: Lives with his , Has been using walker and a wheelchiar for the last few days. - Past Family History Father Family Medical History: Cancer Additional Family Medical History / Comment(s): KIDNEY CANCER Mother Family Medical History: Myocardial Infarction ([place]), Respiratory Disorder Medications and Allergies Home Medications Medication Instructions Recorded Confirmed Type Multivitamin/Iron/Folic Acid 1 tab PO DAILY 08/25/17 03/07/19 History [Centrum Complete Multivit Tab] Omeprazole [PriLOSEC] 20 mg PO DAILY 08/25/17 03/07/19 History Tamsulosin HCl [Flomax] 0.4 mg PO HS 08/25/17 03/07/19 History amLODIPine BESYLATE/BENAZEPRIL 1 cap PO DAILY 08/25/17 03/07/19 History [amLODIPine BESYLATE/BENAZEPRIL 10-40 mg] Thiamine [Vitamin B-1] 100 mg PO DAILY 02/23/19 03/07/19 History Ferrous Sulfate [Feosol] 325 mg PO DAILY 02/25/19 03/07/19 History Furosemide [Lasix] 20 mg PO DAILY 03/02/19 03/07/19 History Potassium Chloride [Klor-Con 10] 10 meq PO DAILY 03/02/19 03/07/19 History Acetaminophen/Diphenhydramine 1 tab PO HS 03/07/19 03/07/19 History [Tylenol PM 500-25mg] Levothyroxine Sodium [Synthroid] 50 mcg PO DAILY 03/07/19 03/07/19 History Allergies Allergy/AdvReac Type Severity Reaction Status Date / Time No Known Allergies Allergy Verified 03/07/19 10:49 Physical Exam Osteopathic Statement: *. No significant issues noted on an osteopathic structural exam other than those noted in the History and Physical/Consult. Vitals: Vital Signs Temp Pulse Resp BP Pulse Ox 03/07/19 13:30 98 20 128/82 93 L 03/07/19 13:00 93 22 114/87 91 L 03/07/19 12:30 96 23 126/82 95 03/07/19 12:00 93 22 127/87 95 03/07/19 11:39 92 22 127/87 95 03/07/19 11:01 99 18 149/94 95 03/07/19 10:41 97.5 F L 117 H 20 153/76 96 Intake and Output 03/06/19 03/07/19 03/07/19 22:59 06:59 14:59 Output Total 650 Balance -650 Output: Urine 650 Uretheral (Gunter) 650 Other: Weight 77.111 kg General: non toxic, no distress, appears at stated age, normal weight Derm: scar midline anterior neck with indentation, no unusual rashes/lesions no unusual ecchymoses, warm, dry Head: atraumatic, normocephalic, symmetric Eyes: EOMI, no lid lag, anicteric sclera, pupils equal round reactive to light ENT: Nose and ears atraumatic, no thrush, no pharyngeal erythema Neck: No thyromegaly, no cervical lymphadenopathy, trachea midline, supple Mouth: no lip lesion, mucus membranes dry Cardiovascular: S1S2 reg, no murmur, positive posterior tibial pulse bilateral, 2+ edema, capillary refill less than 2 seconds Lungs: absent breath sounds right base, no rhonchi, no rales , no accessory muscle use Abdominal: soft, nontender to palpation, no guarding, no appreciable org anomegaly, normal bowel sounds Ext: no gross muscle atrophy, muscle strength 4 out of 5 in all 4 extremities grossly, no contractures, Neuro: CN II-XI grossly intact, light touch intact all 4 extremities, finger to nose within normal limits, + tremor Psych: Alert, oriented, appropriate affect Results CBC & Chem 7: 03/07/19 11:13 03/07/19 11:13 Labs: Abnormal Lab Results - Last 24 Hours (Table) 03/07/19 03/07/19 03/07/19 Range/Units 11:13 11:13 12:24 RBC 2.83 L (4.30-5.90) m/uL Hgb 8.4 L (13.0-17.5) gm/dL Hct 24.6 L (39.0-53.0) % Sodium 124 L (137-145) mmol/L Chloride 88 L (98-107) mmol/L Glucose 137 H (74-99) mg/dL Calcium 7.2 L (8.4-10.2) mg/dL Magnesium 0.5 L* (1.6-2.3) mg/dL Albumin 3.3 L (3.5-5.0) g/dL Urine Protein 1+ H (Negative) Chest x-ray: report reviewed Thrombosis Risk Factor Assmnt - DVT/VTE Prophylaxis DVT/VTE Prophylaxis: Low risk, early ambulation encouraged Assessment and Plan Assessment: Recurrent right sided plerual effusion loculated - NPO after midnight for possible pig tail cath, family wants to wait on IR consult until they speak with Dr. Butler's team - consult Dr. Sanchez - Lasix X 1 - O2 as needed - consider repeat CT of chest Hypomagnesemia - replace and recheck Hyponatremia - suspect due to fluid over load - repeat level in 4 hours after lasix - no FeNa due to recent home lasix use Edema - check echo - Lasix - strict I and O daily weight - check liver ultrasound to r/o liver as cause of effusion Hypothyroidism - resume home synthroid - recent diagnosis Acute urinary retention - gunter - flomax Diarrhea - stop oral iron - observe from improvement Chronic: HTN, HLD, BPH, GERD The patient is admitted with an anticipated greater than 2 midnight stay for evaluation of recurrent pleural effusion. Surrogate decision-maker: CODE STATUS: Full Code DVT prophylaxis: SCDs Discussed with: patient, , ed physician Anticipated discharge date: 2-[address]: home with home health A total of 70 minutes was spent on the care of this complex patient more than 50% of the time was spent in counseling and care coordination. R
[2019-03-07] MEDS: amLODIPine 10 MG TAB PO SCH (16:15)
[2019-03-07] MEDS: LISINOPRIL 20 MG TAB PO SCH (16:15)
[2019-03-07] MEDS: TAMSULOSIN 0.4 MG CAP.ER.24H PO SCH (19:53)
[2019-03-07] MEDS: ACETAMINOPHEN TAB 325 MG TAB PO PRN (19:53)
[2019-03-07 20:07] LABS: Calcium 7.2 mg/dL (8.4-10.2); Potassium 3.2 mmol/L (3.5-5.1)
[2019-03-07 20:50] LABS: Magnesium 0.9 mg/dL (1.6-2.3)
[2019-03-07] MEDS ORDERED: Magnesium Replacement Protocol 1 EACH MISC MISCELLANE PRN (21:31)
[2019-03-07] MEDS ORDERED: MAGNESIUM SULFATE-D5W PMX 1 GM in DEXTROSE/WATER 1 100ML.BAG IVPB SCH (21:45)
[2019-03-07] MEDS ORDERED: DEXTROSE 5% IV ONE (22:00)
[2019-03-07] MEDS ORDERED: WATER IV ONE (22:00)
[2019-03-07] MEDS ORDERED: MAGNESIUM SULFATE IV ONE (22:00)
[2019-03-07] MEDS: MELATONIN 3 MG TABLET PO PRN (22:54)
[2019-03-08] MEDS: HYDROcodone/APAP 5-325MG 1 EACH TAB PO PRN ×2 (03:44→09:17)
[2019-03-08] MEDS: PANTOPRAZOLE 40 MG TABLET PO SCH (06:04)
[2019-03-08] MEDS: LEVOTHYROXINE 50 MCG TAB PO SCH (06:04)
[2019-03-08 07:38] LABS: HCT 23.5 % (39.0-53.0); HGB 7.8 gm/dL (13.0-17.5); MCH 29.2 pg (25.0-35.0); MCHC 33.1 g/dL (31.0-37.0); MCV 88.2 fL (80.0-100.0); Mean Platelet Volume 6.3; Platelet Count 327 k/uL (150-450); RBC 2.66 m/uL (4.30-5.90); RDW 14.5 % (11.5-15.5); WBC 9.1 k/uL (3.8-10.6)
[2019-03-08 08:00] LABS: Calcium 7.3 mg/dL (8.4-10.2); Magnesium 1.8 mg/dL (1.6-2.3); Phosphorus 3.2 mg/dL (2.5-4.5); Potassium 3.9 mmol/L (3.5-5.1)
[2019-03-08] MEDS: LISINOPRIL 20 MG TAB PO SCH (09:13)
[2019-03-08] MEDS: POTASSIUM CHLORIDE ER 10 MEQ TAB.ER.PRT PO SCH (09:13)
[2019-03-08] MEDS: amLODIPine 10 MG TAB PO SCH (09:13)
[2019-03-08] MEDS: MULTIVITAMINS, THERA 1 EACH TAB PO SCH (09:13)
[2019-03-08] MEDS: THIAMINE 100 MG TAB PO SCH (09:13)
--- NOTE | 2019-03-08 12:01 | ECHOF ---
Referral Reason:chf, edema MEASUREMENTS -------- HEIGHT: 180.3 cm WEIGHT: 75.7 kg BP: 130/88 RVIDd: 3.6 cm (< 3.3) IVSd: 1.3 cm (0.6 - 1.1) LVIDd: 3.8 cm (3.9 - 5.3) LVPWd: 1.2 cm (0.6 - 1.1) IVSs: 1.5 cm LVIDs: 2.8 cm LVPWs: 1.8 cm LAESV Index (A-L): 39.98 ml/m Ao Diam: 3.5 cm (2.0 - 3.7) AV Cusp: 2.2 cm (1.5 - 2.6) LA Diam: 4.2 cm (2.7 - 3.8) MV EXCURSION: 23.254 mm (> 18.000) MV EF SLOPE: 88 mm/s (70 - 150) EPSS: 0.5 cm MV E Gil: 0.88 m/s MV DecT: 216 ms MV A Gil: 1.05 m/s MV E/A Ratio: 0.84 AR PHT: 341 ms RAP: 5.00 mmHg RVSP: 55.98 mmHg FINDINGS -------- Sinus rhythm with extra systolic beats. This was a technically adequate study. The left ventricular size is normal. There is mild concentric left ventricular hypertrophy. Overa ll left ventricular systolic function is low-normal with, an EF between 50 - 55 %. Mitral Doppler i nflow pattern suggests diastolic filling abnormality 11.82. The right ventricle is mildly enlarged. LA is moderately dilated 34-39 ml/m2 The right atrial size is normal. Interatrial and interventricular septum intact. Aortic valve is trileaflet and is mildly thickened. There is mild aortic regurgitation. The mitral valve is normal. The mitral valve leaflets are mildly thickened. Moderate mitral regur gitation is present. The tricuspid valve appears structurally normal. Mild tricuspid regurgitation present. There is m oderate pulmonary hypertension. The right ventricular systolic pressure, as measured by Doppler, is 55.98mmHg. There is no pulmonic regurgitation present. The aortic root size is normal. IVC Not well visulized. There is no pericardial effusion. CONCLUSIONS -------- 1. Sinus rhythm with extra systolic beats. 2. This was a technically adequate study. 3. The left ventricular size is normal. 4. There is mild concentric left ventricular hypertrophy. 5. Overall left ventricular systolic function is low-normal with, an EF between 50 - 55 %. 6. Mitral Doppler inflow pattern suggest diastolic filling abnormality 11.82. 7. The right ventricle is mildly enlarged. 8. LA is moderately dilated 34-39 ml/m2 9. The right atrial size is normal. 10. Interatrial and interventricular septum intact. 11. Aortic valve is trileaflet and is mildly thickened. 12. There is mild aortic regurgitation. 13. The mitral valve is normal. 14. The mitral valve leaflets are mildly thickened. 15. Moderate mitral regurgitation is present. 16. The tricuspid valve appears structurally normal. 17. Mild tricuspid regurgitation present. 18. There is moderate pulmonary hypertension. 19. The right ventricular systolic pressure, as measured by Doppler, is 55.98mmHg. 20. There is no pulmonic regurgitation present. 21. The aortic root size is normal. 22. IVC Not well visulized. 23. There is no pericardial effusion. QUALITY ASSURANCE ADVISOR: Adenike Haines RDCS
--- NOTE | 2019-03-08 14:53 | P.PN ---
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 His initial heart rate was 117, hemoglobin of 8.4, sodium 124, glucose 137, magnesium 0.5, and albumin 3.3. Chest x-ray showed left basilar acute atelectasis or infiltrate as well as a moderate right-sided pleural effusion with no significant change. Magnesium was replaced, he developed acute urinary retention requiring a Grajeda catheter to be placed with return of 800 cc of urine. He reported that he was struggling with worsening shortness of breath for several months. His PCP Dr. Ascencio discovered a pleural effusion on the right. He initially had a thoracentesis done along with CAT scan on [facility]. He was then referred to Dr. Butler who did not feel surgery was indicated at this point in time but referred him to Dr. Sanchez. He underwent [address] Sanchez on 02/04 which was hemorrhagic in nature, he then underwent bronchoscopy on 02/26 pathology consistent with reactive cells but no signs of malignancy. Had worsening shortness of breath and underwent thoracentesis with interventional radiology on 03/02. His reports that he started having some lower extremity edema one week ago. She started some Lasix they had at home approximately 4 days ago due to this. Today patient reports that he is breathing slightly better but gets very short of breath with minimal exertion. He denies chest pain, palpitation, diaphoresis, nausea, vomiting, diarrhea and denies rest of the review system. Patient did complain of having generalized fatigue and weakness. Patient was supposed to have the Pleurx catheter placed by cardiothoracic's today but Anibal Rodriguez called that anesthesiologist wants hyponatremia to be addressed first prior to placement of Pleurx catheter. Speech therapist requested swallow evaluation again as it was noted that patient has some gurgling sound after eating meals. No other issues were brought up by the patient or the patient's or the nurse. Patient magnesium was low at the time of admission but it was replaced and it was 1.8 today. Objective - Vital Signs Vital signs: Vital Signs Temp 98 F 03/08/19 11:32 Pulse 79 03/08/19 11:32 Resp 20 03/08/19 11:32 BP 122/72 03/08/19 11:32 Pulse Ox 91 L 03/08/19 11:32 Intake & Output 03/07/19 03/08/19 03/08/19 18:59 06:59 18:59 Output Total 650 550 Balance -650 -550 Weight 74.5 kg 76 kg Output: Urine 650 550 Uretheral (Grajeda) 650 Other: Voiding Method Indwelling Catheter Indwelling Catheter Indwelling Catheter - Constitutional General appearance: Present: cooperative, mild distress (Respiratory) - EENT Eyes: Present: EOMI, normal appearance ENT: Present: hearing grossly normal, NA/AT - Neck Details: + hoarse voice. Neck: Present: normal ROM. Absent: lymphadenopathy, rigidity, thyromegaly - Respiratory Respiratory: right: CTA, left: diminished (Lower half of right chest.), dullness (Lower half of right chest.), negative: rales, rhonchi, wheezing - Cardiovascular Rhythm: regular Heart sounds: normal: S1, S2 Abnormal Heart Sounds: Absent: systolic murmur, diastolic murmur, S3 Gallop, S4 Gallop - Gastrointestinal General gastrointestinal: Present: normal bowel sounds, soft. Absent: d istended, rigid, tenderness - Neurologic Neurologic: Present: CNII-XII intact. Absent: focal deficits - Psychiatric Psychiatric: Present: A&O x's 3, appropriate affect, intact judgment & insight - Allied health notes Allied health notes reviewed: nursing - Labs CBC & Chem 7: 03/08/19 06:16 03/08/19 06:16 Labs: Abnormal Lab Results - Last 24 Hours (Table) 03/07/19 03/08/19 03/08/19 Range/Units 19:34 06:16 06:16 RBC 2.66 L (4.30-5.90) m/uL Hgb 7.8 L (13.0-17.5) gm/dL Hct 23.5 L (39.0-53.0) % Sodium 123 L 124 L (137-145) mmol/L Potassium 3.2 L (3.5-5.1) mmol/L Chloride 88 L 89 L (98-107) mmol/L Glucose 155 H 112 H (74-99) mg/dL Calcium 7.2 L 7.3 L (8.4-10.2) mg/dL Magnesium 0.9 L* (1.6-2.3) mg/dL Assessment and Plan (1) Dyspnea Current Visit: Yes Status: Acute Priority: High Code(s): R06.00 - DYSPNEA, UNSPECIFIED SNOMED Code(s): 749077310 (2) Pleural effusion Current Visit: Yes Status: Acute Priority: High Code(s): J90 - PLEURAL EFFUSION, NOT ELSEWHERE CLASSIFIED SNOMED Code(s): 10763015 (3) Hyponatremia Current Visit: Yes Status: Acute Priority: High Code(s): E87.1 - HYPO- OSMOLALITY AND HYPONATREMIA SNOMED Code(s): 90379682 (4) Hypomagnesemia Current Visit: Yes Status: Acute Priority: Medium Code(s): E83.42 - HYPOMAGNESEMIA SNOMED Code(s): 221171729 (5) Acute urinary retention Current Visit: Yes Status: Acute Priority: High Code(s): R33.8 - OTHER RETENTION OF URINE SNOMED Code(s): 299349075 (6) Laryngeal edema Current Visit: Yes Status: Acute Priority: Medium Code(s): J38.4 - EDEMA OF LARYNX SNOMED Code(s): 83273323 Plan: Patient current management will be continued. Patient hemoglobin will be monitored. He will be referred to nephrology for evaluation and management of hyponatremia. I will await their recommendations. Patient will be referred for a sore evaluation for possible aspiration risk assessment. Rest of the medication for current acute medical problems and chronic stable conditions will be continued as it is. Physical therapy will be continued to give rehabilitation to the patient. We'll continue to monitor while patient is in the hospital. was updated per patient's verbal consent and all questions were answered. Time with Patient: Less than 30
--- NOTE | 2019-03-08 15:00 | FL ---
EXAMINATION TYPE: FL barium swallow w video DATE OF EXAM: 03/08/2019 MODIFIED SWALLOW / DEGLUTITION STUDY CLINICAL HISTORY: Dysphagia. TECHNIQUE: Deglutition study is performed utilizing thin liquid barium, honey and nectar thick liqui d barium, barium thick applesauce, and barium coated cracker. 1 minute and 49 seconds of fluoroscopy time was utilized during the examination with 0 images saved as the examination was video recorded. COMPARISON: None. FINDINGS: The oral and pharyngeal phases show satisfactory initiation and propagation with all modali ties tested. Normal mastication is seen with solid modalities tested. There is no evidence of penet ration or aspiration with any modality tested. Moderate vallecular retention. IMPRESSION: No evidence of laryngeal penetration or aspiration. Moderate vallecular retention. Pleas e refer to speech therapist notes for further details if necessary.
--- NOTE | 2019-03-08 16:58 | P.GSCN ---
History of Present Illness Consult date: 03/08/19 Reason for Consult: Recurrent right pleural effusion, evaluate for Pleurx catheter placement. Requesting physician: Justa Roldan History of present illness: This is an 89-year-old gentleman who is followed by Dr. Ascencio on an outpatient basis. The patient has a past medical history significant for recurrent right pleural effusions which started in January 2019 and he has undergone 3 thoracentesis the last of which was performed about a week ago. 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 The patient presented to the emergency room here at [facility] due to some complaints of progressive shortness of breath, generalized weakness, diarrhea, urinary retention and lack of appetite. He denies any complaints of recent fever, chills, cough, nausea, vomiting or pain. Subsequently, a chest x-ray was completed in the emergency department which showed mild cardiomegaly with patchy left basilar acute atelectasis and/or infiltrate and a stable moderate sized right pleural effusion. A 12-lead EKG was completed which showed normal sinus rhythm with occasional PACs with a heart rate of 90 BPM. The patient also had some laboratory studies completed on admission which showed a WBC count of 9.3, hemoglobin 8.4, hematocrit 24.6, sodium of 124, chloride 88, glucose 137 and magnesium 0.5. Due to the patient's presenting symptoms, chest x-ray findings and laboratory results the patient was admitted for further evaluation and treatment. Due to the patient's recurrent right pleural effusion a consult was placed to Dr. Chuck Hidalgo for possible Pleurx catheter placement. Review of Systems A 14 point review of systems was completed and was negative except as mentioned in the HPI. Past Medical History Past Medical History: Cancer, GERD/Reflux, Hyperlipidemia, Hypertension, Osteoarthritis (OA), Pulmonary Embolus (PE), Thyroid Disorder Additional Past Medical History / Comment(s): Laryngeal cancer RADIATION CHEMOTHERAPY completed. Hypothyroidism. BPH. GERD. Coronary artery disease. Anemia. Gout. Diverticulosis. History of Any Multi-Drug Resistant Organisms: None Reported Past Surgical History: Orthopedic Surgery, Tonsillectomy Additional Past Surgical History / Comment(s): RIGHT HIP REPLACEMENT. trach Past Anesthesia/Blood Transfusion Reactions: No Reported Reaction Additional Past Anesthesia/Blood Transfusion Reaction / Comm: HAD 2 UNITS DURING CHEMO AT [facility] Past Psychological History: No Psychological Hx Reported Smoking Status: Former smoker (Stopped smoking about 30 years ago.) Past Alcohol Use History: Daily (Drinks at least 2 glasses of water and whiskey daily.) Past Drug Use History: None Reported - Past Family History Father Family Medical History: Cancer Additional Family Medical History / Comment(s): KIDNEY CANCER Mother Family Medical History: Myocardial Infarction ([place]), Respiratory Disorder Medications and Allergies Home Medications Medication Instructions Recorded Confirmed Type Multivitamin/Iron/Folic Acid 1 tab PO DAILY 08/25/17 03/07/19 History [Centrum Complete Multivit Tab] Omeprazole [PriLOSEC] 20 mg PO DAILY 08/25/17 03/07/19 History Tamsulosin HCl [Flomax] 0.4 mg PO HS 08/25/17 03/07/19 History amLODIPine BESYLATE/BENAZEPRIL 1 cap PO DAILY 08/25/17 03/07/19 History [amLODIPine BESYLATE/BENAZEPRIL 10-40 mg] Thiamine [Vitamin B-1] 100 mg PO DAILY 02/23/19 03/07/19 History Ferrous Sulfate [Feosol] 325 mg PO DAILY 02/25/19 03/07/19 History Furosemide [Lasix] 20 mg PO DAILY 03/02/19 03/07/19 History Potassium Chloride [Klor-Con 10] 10 meq PO DAILY 03/02/19 03/07/19 History Acetaminophen/Diphenhydramine 1 tab PO HS 03/07/19 03/07/19 History [Tylenol PM 500-25mg] Levothyroxine Sodium [Synthroid] 50 mcg PO DAILY 03/07/19 03/07/19 History Allergies Allergy/AdvReac Type Severity Reaction Status Date / Time No Known Allergies Allergy Verified 03/07/19 10:49 Surgical - Exam Vital Signs Temp Pulse Resp BP Pulse Ox 97.5 F L 117 H 20 153/76 96 03/07/19 10:41 03/07/19 10:41 03/07/19 10:41 03/07/19 10:41 03/07/19 10:41 - General well developed, well nourished, no distress, no pain - Eyes PERRL, normal ocular movement - ENT normal pinna, normal nares, normal mucosa, no hearing loss, no congestion, poor fdc, dentures - Neck Neck is supple, no lymphadenopathy, midline tracheostomy stoma without redness. no masses, no bruits, no venous distension - Respiratory Lung sounds with absent breath sounds to right lower lobe, essentially clear to his left lobes. No rhonchi wheezes or crackles present. Respirations are symm etrical and nonlabored. - Cardiovascular Regular rhythm and rate. S1 and S2 present, negative for S3, gallop or murmur. +2 edema to his bilateral lower extremities. - Abdomen Abdomen soft, nontender and nondistended. Active bowel sounds present all 4 abdominal quadrants. No guarding or rigidity. No organomegaly appreciated. - Genitourinary Deferred - Rectum Deferred - Integumentary no rash, no growths, no abnormal pigmentation - Neurologic normal coordination, normal sensation - Musculoskeletal Generalized weakness normal gait, normal posture - Psychiatric oriented to time, oriented to person, oriented to place, speech is normal, memory intact Results - Labs 03/08/19 06:16 03/08/19 15:43 Abnormal Lab Results - Last 24 Hours (Table) 03/07/19 03/08/19 03/08/19 Range/Units 19:34 06:16 06:16 RBC 2.66 L (4.30-5.90) m/uL Hgb 7.8 L (13.0-17.5) gm/dL Hct 23.5 L (39.0-53.0) % Sodium 123 L 124 L (137-145) mmol/L Potassium 3.2 L (3.5-5.1) mmol/L Chloride 88 L 89 L (98-107) mmol/L Glucose 155 H 112 H (74-99) mg/dL Calcium 7.2 L 7.3 L (8.4-10.2) mg/dL Magnesium 0.9 L* (1.6-2.3) mg/dL TSH (0.465-4.680) mIU/L 03/08/19 Range/Units 15:43 RBC (4.30-5.90) m/uL Hgb (13.0-17.5) gm/dL Hct (39.0-53.0) % Sodium 123 L (137-145) mmol/L Potassium (3.5-5.1) mmol/L Chloride (98-107) mmol/L Glucose (74-99) mg/dL Calcium (8.4-10.2) mg/dL Magnesium (1.6-2.3) mg/dL TSH 4.950 H (0.465-4.680) mIU/L Diabetes panel 03/07/19 03/08/19 03/08/19 Range/Units 19:34 06:16 15:43 Sodium 123 L 124 L 123 L (137-145) mmol/L Potassium 3.2 L 3.9 (3.5-5.1) mmol/L Chloride 88 L 89 L (98-107) mmol/L Carbon Dioxide 24 23 (22-30) mmol/L BUN 17 16 (9-20) mg/dL Creatinine 0.91 0.91 (0.66-1.25) mg/dL Glucose 155 H 112 H (74-99) mg/dL Calcium 7.2 L 7.3 L (8.4-10.2) mg/dL Thyroid panel 03/08/19 Range/Units 15:43 TSH 4.950 H (0.465-4.680) mIU/L Calcium panel 03/07/19 03/08/19 Range/Units 19:34 06:16 Calcium 7.2 L 7.3 L (8.4-10.2) mg/dL Phosphorus 3.2 (2.5-4.5) mg/dL Pituitary panel 03/07/19 03/08/19 03/08/19 Range/Units 19:34 06:16 15:43 Sodium 123 L 124 L 123 L (137-145) mmol/L Potassium 3.2 L 3.9 (3.5-5.1) mmol/L Chloride 88 L 89 L (98-107) mmol/L Carbon Dioxide 24 23 (22-30) mmol/L BUN 17 16 (9-20) mg/dL Creatinine 0.91 0.91 (0.66-1.25) mg/dL Glucose 155 H 112 H (74-99) mg/dL Calcium 7.2 L 7.3 L (8.4-10.2) mg/dL TSH 4.950 H (0.465-4.680) mIU/L Adrenal panel 03/07/19 03/08/19 03/08/19 Range/Units 19:34 06:16 15:43 Sodium 123 L 124 L 123 L (137-145) mmol/L Potassium 3.2 L 3.9 (3.5-5.1) mmol/L Chloride 88 L 89 L (98-107) mmol/L Carbon Dioxide 24 23 (22-30) mmol/L BUN 17 16 (9-20) mg/dL Creatinine 0.91 0.91 (0.66-1.25) mg/dL Glucose 155 H 112 H (74-99) mg/dL Calcium 7.2 L 7.3 L (8.4-10.2) mg/dL - Imaging Chest x-ray: report reviewed, image reviewed EKG: image reviewed Assessment and Plan Assessment: 1. Recurrent right-sided pleural effusion 2. Hyponatremia with an admission sodium level of 124 3. Hypomagnesemia with an admission magnesium level of 0.5 4. History of hypertension 5. Hypothyroidism 6. Acute urinary retention, requiring Grajeda catheter insertion 7. Diarrhea 8. History of benign prostatic hypertrophy 9. History of gastroesophageal reflux disease 10. History of vocal cord cancer, status post chemotherapy and radiation Plan: The patient was seen and examined. His chart and diagnostics were reviewed by Dr. Hidalgo. The patient was evaluated for placement of Pleurx catheter although due to the patient's hyponatremia and hypo-magnesia it was felt that he should be optimized medically before proceeding with a Pleurx catheter placement. If the patient continues to become more short of breath he may benefit from a right thoracentesis. Consult nephrology for management of his hypernatremia and hypo-magnesia. Once his sodium and magnesium have normalized he will be considered for a Pleurx catheter placement. The above-mentioned plan has been discussed with the patient by Dr. Hidalgo and has also been discussed with Dr. Millan from internal medicine. Dr. Hidalgo has also discussed the Pleurx catheter placement and plan with Dr. Gardiner from anesthesia who is also in agreement to postpone a Pleurx catheter placement until the patient has been me dically optimized. The patient may be taken off his nothing by mouth status per the cardiothoracic surgery standpoint. Thank you Dr. Roldan for this consult and we will look forward to working with failure of care per patient. Time with Patient: Greater than 30
[2019-03-08] MEDS: SODIUM CHLORIDE 0.9% 1,000 ML IV SCH (17:31)
[2019-03-08] MEDS: TAMSULOSIN 0.4 MG CAP.ER.24H PO SCH (19:53)
--- NOTE | 2019-03-08 20:34 | CONS ---
CONSULTATION This is a pulmonary/critical care consultation. DATE OF CONSULTATION: March 08, 2019 HISTORY OF PRESENT ILLNESS: This is an 89-year-old male with a history of recurrent right-sided pleural effusions. The patient has had thoracentesis performed 3 times. Initially it was done over at [facility]. I believe by one of the interventional radiologist. Subsequent to that, I did a thoracentesis on him and following that, more recently, he had one done by Dr. Nigel Negrete here at [facility]. Anyway, the patient was initially sent to thoracic surgery for consideration of a PleurX catheter. Initially, they were reluctant to do it. Subsequent to that, I saw the patient and put him through a 2nd thoracentesis and then also bronchoscopy, airway examination, BAL brushes and washes of that right lower lobe. In fact, it is interesting that on all of the thoracenteses, and also the bronchoscopy, everything has come back negative. Nonetheless, he apparently has recurrent effusion. The effusions are exudative in nature. They do have high LDH and high-protein amounts. Microbiology though and cytology have been negative as was all the sampling via bronchoscopy. The patient apparently came in to the hospital for weakness and just not being able to stand up on his legs. Not anything more than that. No fever, chills. No cough. No phlegm production. No worsening of his breathing or anything like this. The patient is currently resting in bed. Thoracic surgery apparently was to put a PleurX catheter in him, but noted on his laboratory analysis on this admission that a sodium was low at 124 and one of the primary service along with plus or minus Nephrology, to consider treating him and getting the sodium back up into the normal range. From the pulmonary standpoint, as I am seeing him, he is pretty much at baseline. His breathing is not any worse than it was when I saw him recently in the office. HOME MEDICATIONS: Include multivitamins, Prilosec, Flomax, amlodipine, thiamin, iron, Lasix, potassium chloride, Tylenol p.m., and levothyroxine. ALLERGIES: Denied. By the way his primary care provider is Dr. Ascencio. MEDICAL HISTORY: Gastroesophageal reflux disease, hypertension, DJD, pulmonary embolism, throat cancer, status post chemoradiation and a previous episode of tracheostomy and in the past. In addition, he does have a history of recurrent right-sided pleural effusions, which have been exudate although sampling has been negative. SURGICAL HISTORY: Includes multiple thoracentesis x3, bronchoscopy, airway examination, therapeutic lavage, BAL, brushes and biopsies, right hip replacement, previous tracheostomy and some other minor procedures. SOCIAL HISTORY: Positive for previous tobacco use. He drinks alcohol daily. No illicit drug use. FAMILY HISTORY: Positive for father with kidney cancer and mother who had myocardial infarction. REVIEW OF SYSTEMS: CONSTITUTIONAL: Weakness, unsteadiness on his legs. NEUROLOGIC: Negative. HEENT negative. CARDIOVASCULAR negative. PULMONARY: Right-sided pleural effusion, recurrent. GI negative. negative. RHEUMATOLOGIC negative. IMMUNOLOGIC negative. ENDOCRINOLOGIC negative. DERMATOLOGIC negative. PHYSICAL EXAMINATION: VITAL SIGNS: Current vital signs include temperature 98, heart rate 79, respiratory rate 20, blood pressure 122/72 and on 2 L saturation 94%. Appears in no acute distress. Not particularly tachypneic. Sitting up in his chair with the oxygen in place. next to him in no distress. HEENT examination is grossly unremarkable. Mucous membranes are moist. Nasal O2 noted. NECK: Supple. Full range of motion. No adenopathy or thyromegaly. Neck veins are flat. CARDIOVASCULAR examination reveals regular rhythm and rate. Heart rate 79. S1, S2 normal. No S3, S4, or murmur. LUNGS: Diminished breath sounds at the right base. There is also some crackles at both bases. No wheezes. Breath sounds equal bilaterally. ABDOMEN: Soft. Bowel sounds are heard. EXTREMITIES are intact. No cyanosis, clubbing, or edema. SKIN: Without rash. NEUROLOGIC examination is brief but nonfocal. LABS: Reviewed. White count 9.1, hemoglobin 7.8, hematocrit 23.5, platelet count 327,000. PT/INR, PTT normal. Sodium 124, potassium 3.9, chloride 89, CO2 is 23. BUN and creatinine were 16 and 0.91. Magnesium 0.5 and then subsequent one is 1.9. Repeat 1.8. The rest of his labs look okay. N-terminal proBNP 2460. Albumin 3.3. Troponin 0.031. Urine was negative. Medications are reviewed. Chest x-ray shows primarily right-sided pleural effusion, looks maybe slightly larger than it was before. ASSESSMENT: 1. Recurrent right-sided pleural effusion, status post thoracentesis x3 with negative cytology and microbiology, and status post bronchoscopy with airway examination, therapeutic lavage, BAL, brushes and biopsies of that right lower lobe, all of which have also turned out to be negative. 2. Hyponatremia, currently being evaluated by the primary service and by Nephrology. 3. Anticipated right-sided PleurX catheter to be placed by thoracic surgery. 4. History of laryngeal carcinoma, status post chemoradiation. 5. Gastroesophageal reflux disease. 6. Hypertension. 7. Degenerative joint disease. 8. History of pulmonary embolism. 9. Prior history of tracheostomy. PLAN: The patient apparently will be seen by Nephrology. They will deal with hyponatremia. From the pulmonary standpoint, the patient is stable. He will await correction of the sodium before PleurX catheter is placed. No additional recommendations are made from my perspective. Medications are reviewed. Additional recommendations and suggestions are forthcoming. MMODL / IJN: [id number] /
[2019-03-08] MEDS: MELATONIN 3 MG TABLET PO PRN (20:44)
[2019-03-08] MEDS ORDERED: FUROSEMIDE 10 MG/ML 2 ML VIAL IV ONE (22:22)
[2019-03-09 04:29] LABS: Calcium 7.8 mg/dL (8.4-10.2)
[2019-03-09] MEDS ORDERED: FUROSEMIDE 10 MG/ML 2 ML VIAL IV ONE (05:58)
[2019-03-09] MEDS: PANTOPRAZOLE 40 MG TABLET PO SCH (06:19)
[2019-03-09] MEDS: LEVOTHYROXINE 50 MCG TAB PO SCH (06:19)
--- NOTE | 2019-03-09 08:25 | XR ---
EXAMINATION TYPE: XR chest 1V portable DATE OF EXAM: 03/09/2019 CLINICAL HISTORY: Difficulty breathing and right-sided pleural effusion progress study. TECHNIQUE: Single AP portable upright view of the chest is obtained. COMPARISON: Chest x-ray from 2 days earlier and older studies. FINDINGS: There is persistent moderate to large size right pleural effusion and associated right bas ilar compressive atelectasis. There is tiny left pleural effusion and associated left basilar acute i nfiltrate and/or atelectasis. Cardiac silhouette size is stable and enlarged with atherosclerotic aor ta. Osseous structures are intact. There is partial visualization of contrast at level of splenic fle xure from recent swallow study yesterday. Overlying EKG leads are redemonstrated. IMPRESSION: Overall stable findings, cardiomegaly with tiny left pleural effusion and associated le ft basilar atelectasis and/or infiltrate. Moderate to large size right pleural effusion and associate d right basilar atelectasis and/or infiltrate.
[2019-03-09] MEDS: MULTIVITAMINS, THERA 1 EACH TAB PO SCH (09:23)
[2019-03-09] MEDS: amLODIPine 10 MG TAB PO SCH (09:23)
[2019-03-09] MEDS: LISINOPRIL 20 MG TAB PO SCH (09:26)
[2019-03-09] MEDS: POTASSIUM CHLORIDE ER 10 MEQ TAB.ER.PRT PO SCH (09:27)
[2019-03-09] MEDS: THIAMINE 100 MG TAB PO SCH (09:27)
--- NOTE | 2019-03-09 11:57 | P.PN ---
Subjective Progress Note Date: 03/09/19 Principal diagnosis: Recurrent right pleural effusion, urinary retention, history of laryngeal cancer status post chemotherapy and radiation, history of tracheostomy, hypothyroidism, BPH, hyperlipidemia, osteoarthritis, history of pulmonary embolus and hypertension. The patient is sitting on his bedside edge on the cardiac stepdown unit. He is tolerating oral intake. Denies any complaints of pain at this time although reports that his shortness of breath has not improved since his admission. Oxygen saturations are 94% on 3 L nasal cannula. Laboratory results show a sod ium of 125, chloride 90, BUN 18 and creatinine 0.[address] Tucker met with the patient this morning and discussed the risks and benefits of placing a Pleurx catheter for his recurrent right pleural effusions. The patient will be scheduled for a right Pleurx catheter placement tomorrow to be performed by Dr. Charles Tucker. Objective - Vital Signs Vital signs: Vital Signs Temp 97.0 F L 03/09/19 08:30 Pulse 79 03/09/19 08:30 Resp 18 03/09/19 08:30 BP 130/58 03/09/19 08:30 Pulse Ox 94 L 03/09/19 08:30 Intake & Output 03/08/19 03/09/19 03/09/19 18:59 06:59 18:59 Intake Total 320 240 Output Total 655 Balance 320 -655 240 Weight 77.3 kg Intake: Intake, IV Titration 80 Amount Dextrose 5% in Water 100 80 ml @ 35.333 mls/hr IV . Q3H ONE with Magnesium Sulfate 3,000 mg Rx#: [id number] Oral 240 240 Output: Urine 655 Other: Voiding Method Indwelling Catheter Indwelling Catheter - Constitutional General appearance: Present: average body habitus, cooperative, no acute distress - Respiratory Details: Lung sounds essentially clear to his left lobes, absent to his right lower lobe. Respirations are symmetrical and nonlabored. Oxygen saturation are 94% on 3 L nasal cannula. No rhonchi, wheezes or crackles present. - Cardiovascular Details: Regular rhythm and rate. S1 and S2 present, negative for S3, gallop or murmur. +2 edema to his bilateral lower extremities. - Gastrointestinal Gastrointestinal Comment(s): Abdomen soft, nontender and nondistended. Active bowel sounds present all 4 abdominal quadrants. No guarding or rigidity. No organomegaly appreciated. - Genitourinary Genitourinary Comment(s): Voiding clear yellow urine. It very well - Integumentary Integumentary Comment(s): no rash, no growths, no abnormal pigmentation. Midline tracheostomy stoma without redness. - Neurologic Neurologic: Present: CNII-XII intact - Musculoskeletal Musculoskeletal: Present: gait normal, generalized weakness, strength equal bilaterally - Psychiatric Psychiatric: Present: A&O x's 3, appropriate affect, intact judgment & insight - Allied health notes Allied health notes reviewed: nursing - Labs CBC & Chem 7: 03/08/19 06:16 03/09/19 10:54 Labs: Abnormal Lab Results - Last 24 Hours (Table) 03/08/19 03/08/19 03/09/19 Range/Units 15:43 21:24 03:49 Sodium 123 L 123 L 125 L (137-145) mmol/L Chloride 90 L (98-107) mmol/L Glucose 127 H (74-99) mg/dL Calcium 7.8 L (8.4-10.2) mg/dL TSH 4.950 H (0.465-4.680) mIU/L 03/09/19 Range/Units 10:54 Sodium 125 L (137-145) mmol/L Chloride (98-107) mmol/L Glucose (74-99) mg/dL Calcium (8.4-10.2) mg/dL TSH (0.465-4.680) mIU/L - Imaging and Cardiology Chest x-ray: report reviewed, image reviewed Assessment and Plan Assessment: 1. Recurrent right-sided pleural effusion 2. Hyponatremia with an admission sodium level of 124 3. Hypomagnesemia with an admission magnesium level of 0.5 4. History of hypertension 5. Hypothyroidism 6. Acute urinary retention, requiring Grajeda catheter insertion 7. Diarrhea 8. History of benign prostatic hypertrophy 9. History of gastroesophageal reflux disease 10. History of vocal cord cancer, status post chemotherapy and radiation Plan: 1. We will place the patient on a 1500 mL in 24 hour fluid restriction for his hyponatremia. 2. Nephrology consult pending. 3. Nothing by mouth after midnight for right chest Pleurx catheter placement which is scheduled for 10 AM tomorrow 03/10/2019 to be performed by Dr. Charles Tucker. 4. More recommendations to follow based on patient's clinical course. 5. Pleurx catheter teaching initiated. 6. Medical management per primary care service recommendations Time with Patient: Greater than 30
--- NOTE | 2019-03-09 12:10 | P.PN ---
Subjective Progress Note Date: 03/09/19 Principal diagnosis: Recurrent right-sided pleural effusions. This is a pleasant 89-year-old gentleman with a history of recurrent right-sided pleural effusions. Status post 3 previous thoracentesis. The effusions are exudative in nature. He had also undergone bronchoscopy with BAL. He presented here to the hospital again with complaints of increasing weakness and inability to stand. He was found to be hyponatremic with a sodium of 124. He is seen today in follow-up on the selective care unit. Currently awake and alert in no acute distress. Maintaining O2 saturations in the low 90s on 3 L/m per nasal cannula. He's been afebrile. Hemodynamically stable. Today's chest x-ray shows overall stable findings. There is evidence of cardiomegaly with tiny left pleural effusion and associated left basilar atelectasis/infiltrate. There is also moderate to large right-sided pleural effusion with atelectasis/infiltrate. The plan is for Pleurx catheter placement tomorrow by Dr. Tucker. Current sodium 125. Potassium 4.0. Chloride 90. Bicarb 24. Creatinine 0.99. Currently with a 0.9 normal saline at 50 MLS per hour. Objective - Vital Signs Vital signs: Vital Signs Temp 97.0 F L 03/09/19 08:30 Pulse 79 03/09/19 08:30 Resp 18 03/09/19 08:30 BP 130/58 03/09/19 08:30 Pulse Ox 94 L 03/09/19 08:30 Intake & Output 03/08/19 03/09/19 03/09/19 18:59 06:59 18:59 Intake Total 320 240 Output Total 655 Balance 320 -655 240 Weight 77.3 kg Intake: Intake, IV Titration 80 Amount Dextrose 5% in Water 100 80 ml @ 35.333 mls/hr IV . Q3H ONE with Magnesium Sulfate 3,000 mg Rx#: [id number] Oral 240 240 Output: Urine 655 Other: Voiding Method Indwelling Catheter Indwelling Catheter - Exam GENERAL EXAM: Alert, pleasant 89-year-old gentleman, comfortable in no apparent distress. On 3 L nasal cannula. HEAD: Normocephalic. EYES: Normal reaction of pupils, equal size. NOSE: Clear with pink turbinates. THROAT: No erythema or exudates. NECK: No masses, no JVD. CHEST: No chest wall deformity. LUNGS: Equal air entry with crackles in the posterior bases right greater than left with dullness, diminished. CVS: S1 and S2 normal with no audible murmur, regular rhythm. ABDOMEN: No hepatosplenomegaly, normal bowel sounds, no guarding or rigidity. SPINE: No scoliosis or deformity SKIN: No rashes CENTRAL NERVOUS SYSTEM: No focal deficits, tone is normal in all 4 extremities. EXTREMITIES: There is no peripheral edema. No clubbing, no cyanosis. P eripheral pulses are intact. - Labs CBC & Chem 7: 03/08/19 06:16 03/09/19 10:54 Labs: Abnormal Lab Results - Last 24 Hours (Table) 03/08/19 03/08/19 03/09/19 Range/Units 15:43 21:24 03:49 Sodium 123 L 123 L 125 L (137-145) mmol/L Chloride 90 L (98-107) mmol/L Glucose 127 H (74-99) mg/dL Calcium 7.8 L (8.4-10.2) mg/dL TSH 4.950 H (0.465-4.680) mIU/L 03/09/19 Range/Units 10:54 Sodium 125 L (137-145) mmol/L Chloride (98-107) mmol/L Glucose (74-99) mg/dL Calcium (8.4-10.2) mg/dL TSH (0.465-4.680) mIU/L Assessment and Plan Assessment: Impression: #1 Recurrent right-sided pleural effusion, status post thoracentesis 3 with negative cytology and microbiology, status post bronchoscopy with airway examina tion negative for malignancy. Plan is for Pleurx catheter placement 03/10/2019. #2 Hyponatremia, current sodium 125. #3 History of laryngeal carcinoma, status post chemoradiation. #4 Hypertension. #5 Gastroesophageal reflux disease. #6 Degenerative joint disease. #7 History of pulmonary embolism. #8 History of previous tracheostomy. Plan: The patient was seen and evaluated by Dr. Sanchez. He is currently stable from the pulmonary standpoint. The plan is for Pleurx catheter placement possibly tomorrow. Continued chronic sodium. Increase his activity as tolerated. We'll continue to follow make further recommendations based on his clinical status. I, the cosigning physician, performed a history & physical examination of the patient. Lungs sounds with basilar crackles right greater than left, dullness Maintaining good O2 saturations in the 90s on 3 L/m per nasal cannula I discussed the assessment and plan of care with my nurse practitioner, Ramila Castrejon. I attest to the above note as dictated by her.
[2019-03-09] MEDS: SODIUM CHLORIDE 0.9% 1,000 ML IV SCH (13:32)
--- NOTE | 2019-03-09 14:30 | P.PN ---
Subjective Progress Note Date: 03/09/19 Patient reports that he is feeling little better as compared to yesterday his breathing is better and his endorses to it. Patient ambulated in the hallway the help of physical therapist, although he was short of breath as reported but he stated his shortness of breath has significantly improved along with his episodes of coughing. Patient was referred to nephrology for hyponatremia/Hypomagnisemia management which seems to be chronic in nature and their input awaited. Patient continues to have some shortness of breath with the dyspnea on exertion along with some tachypnea off-and-on but it is improved as compared to the time of admission. He denies chest pain, palpitation, headache, dizziness, nausea, vomiting, diarrhea, fever, chills and denies rest of the review of system. Objective - Vital Signs Vital signs: Vital Signs Temp 97.9 F 03/09/19 12:25 Pulse 84 03/09/19 12:25 Resp 20 03/09/19 12:25 BP 138/64 03/09/19 12:25 Pulse Ox 96 03/09/19 12:25 Intake & Output 03/08/19 03/09/19 03/09/19 18:59 06:59 18:59 Intake Total 320 480 Output Total 655 Balance 320 -655 480 Weight 77.3 kg Intake: Intake, IV Titration 80 Amount Dextrose 5% in Water 100 80 ml @ 35.333 mls/hr IV . Q3H ONE with Magnesium Sulfate 3,000 mg Rx#: [id number] Oral 240 480 Output: Urine 655 Other: Voiding Method Indwelling Catheter Indwelling Catheter Indwelling Catheter - Constitutional General appearance: Present: cooperative, mild distress (due to coughing.) - EENT Eyes: Present: EOMI, normal appearance ENT: Present: hearing grossly normal, NA/AT - Neck Details: Healed scar from Tracheostomy Neck: Present: normal ROM. Absent: lymphadenopathy, rigidity, stridor, thyromegaly - Respiratory Respiratory: left: CTA, bilateral: diminished (right lower lungs.), rales (Left basal, few.), negative: rhonchi, wheezing - Cardiovascular Rhythm: regular Heart sounds: normal: S1, S2 Abnormal Heart Sounds: Absent: systolic murmur, diastolic murmur, S3 Gallop, S4 Gallop - Gastrointestinal General gastrointestinal: Present: normal bowel sounds, soft. Absent: distended, rigid, tenderness - Neurologic Neurologic: Present: CNII-XII intact. Absent: focal deficits - Psychiatric Psychiatric: Present: A&O x's 3, appropriate affect - Allied health notes Allied health notes reviewed: nursing - Labs CBC & Chem 7: 03/08/19 06:16 03/09/19 10:54 Labs: Abnormal Lab Results - Last 24 Hours (Table) 03/08/19 03/08/19 03/09/19 Range/Units 15:43 21:24 03:49 Sodium 123 L 123 L 125 L (137-145) mmol/L Chloride 90 L (98-107) mmol/L Glucose 127 H (74-99) mg/dL Calcium 7.8 L (8.4-10.2) mg/dL TSH 4.950 H (0.465-4.680) mIU/L 03/09/19 Range/Units 10:54 Sodium 125 L (137-145) mmol/L Chloride (98-107) mmol/L Glucose (74-99) mg/dL Calcium (8.4-10.2) mg/dL TSH (0.465-4.680) mIU/L Assessment and Plan (1) Dyspnea Current Visit: Yes Status: Acute Priority: High Code(s): R06.00 - DYSPNEA, UNSPECIFIED SNOMED Code(s): 363001232 (2) Pleural effusion Current Visit: Yes Status: Acute Priority: High Code(s): J90 - PLEURAL EFFUSION, NOT ELSEWHERE CLASSIFIED SNOMED Code(s): 67481603 (3) Hyponatremia Current Visit: Yes Status: Acute Priority: High Code(s): E87.1 - HYPO- OSMOLALITY AND HYPONATREMIA SNOMED Code(s): 72760604 (4) Hypomagnesemia Current Visit: Yes Status: Acute Priority: Medium Code(s): E83.42 - HYPOMAGNESEMIA SNOMED Code(s): 426446399 (5) Acute urinary retention Current Visit: Yes Status: Acute Priority: High Code(s): R33.8 - OTHER RETENTION OF URINE SNOMED Code(s): 546094035 (6) Laryngeal edema Current Visit: Yes Status: Acute Priority: Medium Code(s): J38.4 - EDEMA OF LARYNX SNOMED Code(s): 18141661 Plan: Patient was given isolated 2 doses of Lasix by nephrology and patient is feeling better clinically I will do basic panel again in the morning along with noris jang to assess I status and will continue current management. Patient is tentatively scheduled for Pleurx catheter placement tomorrow pending final recommendations from nephrology services. No changes in the current management is recommended at this time. Patient will benefit from fluid restriction along with diuresis, which has been implemented. Time with Patient: Less than 30
[2019-03-09] MEDS: ACETAMINOPHEN TAB 325 MG TAB PO PRN (14:58)
--- NOTE | 2019-03-09 19:21 | CONS ---
CONSULTATION REASON FOR CONSULT: Hyponatremia. HISTORY OF PRESENT ILLNESS: Patient is an 89-year-old male who was admitted to the hospital on March 07 with complaints of weakness. The patient has an underlying history of laryngeal cancer, status post chemotherapy and radiation therapy, and hypertension. The patient did admit to a previous history of hyponatremia. Although we do not have any documented low sodium levels. Serum sodium was 124 on initial admission, it dropped down to 123. Patient is currently maintained on normal saline and received 2 doses of IV Lasix. His serum sodium is up to 125. Urine osmolality was 345 and urine sodium was 74. Blood pressure is not low. The patient is maintained on oral Lasix at home. He denies use of any thiazide diuretics. PAST MEDICAL HISTORY: Laryngeal cancer, status post radiation therapy, chemotherapy, hypothyroidism, BPH, urinary artery disease, history of gout, diverticulosis, osteoarthritis, history of PE. PAST SURGICAL HISTORY: Right hip arthroplasty, tracheostomy, tonsillectomy. SOCIAL HISTORY: Patient is a former smoker. No history of drug abuse. MEDICATIONS PRIOR TO ADMISSION: Included Centrum, Prilosec, Flomax, amlodipine, Benazepril, iron, Lasix, potassium, Synthroid. ALLERGIES: None. REVIEW OF SYSTEMS: As per HPI. Other systems negative. Patient denies any history of diarrhea, nausea, vomiting. PHYSICAL EXAMINATION: On examination, blood pressure this morning was 130/58, heart rate 84 per minute. Patient is afebrile. Examination of the heart S1, S2. Examination of the lungs, bilateral breath sounds are heard. Abdomen is soft, nontender. Exam of lower extremities shows trace edema bilaterally. APPLICATIONS ADMINISTRATOR exam grossly intact. LABS: Sodium of 125, potassium 4.0, BUN 18, serum creatinine 0.9. Urine sodium 74, urine osmolality 345. Chest x-ray from today shows cardiomegaly with left pleural effusion. Moderate to large size right pleural effusion is also noted. ASSESSMENT: Hyponatremia. The patient appears euvolemic. His serum sodium did not improve much with normal saline. However, I gave him a dose of IV Lasix with the saline and brought it up to about 125. 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 I will discontinue the saline and maintain patient on high protein diet with a fluid restriction. He will also receive a dose of tolvaptan. Repeat labs in a.m. TSH was slightly elevated with previous reading at 12.6 on 02/16/2019, suggesting definitely component of hypothyroidism as well contributing to the hyponatremia. Thank you for this consultation. We will continue to follow the patient with you during his hospitalization. PINO / LEAH: [id number] /
[2019-03-09] MEDS: TAMSULOSIN 0.4 MG CAP.ER.24H PO SCH (20:19)
[2019-03-09] MEDS ORDERED: ONDANSETRON 4 MG/2 ML VIAL IVP ONE (23:01)
[2019-03-09] MEDS ORDERED: LIDOCAINE 1% 20 ML VIAL (10MG/ML) FOR IV START INTRADERMA PRN (23:01)
[2019-03-09] MEDS ORDERED: DEXAMETHASONE SOD PHOSPHATE 10 MG/ML 1 ML VIAL IV ONE ×2 (23:01→23:22)
[2019-03-09] MEDS ORDERED: MIDAZOLAM 2 MG/2 ML VIAL IV PRN (23:01)
[2019-03-09] MEDS ORDERED: HYDROmorphone 0.5 MG/0.5 ML SYRINGE IVP PRN (23:01)
[2019-03-09] MEDS ORDERED: fentaNYL (PF) 50 MCG/ML 2 ML AMP IV PRN (23:01)
[2019-03-10] MEDS: PANTOPRAZOLE 40 MG TABLET PO SCH (06:11)
[2019-03-10] MEDS: LEVOTHYROXINE 50 MCG TAB PO SCH (06:11)
[2019-03-10 07:33] LABS: HGB 7.6 gm/dL (13.0-17.5); MCH 29.2 pg (25.0-35.0); MCHC 32.9 g/dL (31.0-37.0); MCV 88.8 fL (80.0-100.0); Mean Platelet Volume 7.1; Platelet Count 325 k/uL (150-450); RBC 2.59 m/uL (4.30-5.90); RDW 14.4 % (11.5-15.5); WBC 9.5 k/uL (3.8-10.6)
[2019-03-10 07:37] LABS: Partial Thromboplastin Time 25.7 sec (22.0-30.0); Prothrombin Time 10.3 sec (9.0-12.0)
[2019-03-10 07:48] LABS: Calcium 8.2 mg/dL (8.4-10.2); Magnesium 1.4 mg/dL (1.6-2.3); Potassium 4.1 mmol/L (3.5-5.1)
[2019-03-10] MEDS: POTASSIUM CHLORIDE ER 10 MEQ TAB.ER.PRT PO SCH (08:11)
[2019-03-10] MEDS: THIAMINE 100 MG TAB PO SCH (08:11)
[2019-03-10] MEDS: LISINOPRIL 20 MG TAB PO SCH (08:11)
[2019-03-10] MEDS: MULTIVITAMINS, THERA 1 EACH TAB PO SCH (08:11)
[2019-03-10] MEDS: amLODIPine 10 MG TAB PO SCH (08:11)
--- NOTE | 2019-03-10 08:20 | XR ---
EXAMINATION TYPE: XR chest 1V portable DATE OF EXAM: 03/10/2019 Comparison: 03/09/2019 Clinical History: 89-year-old male Right pleural effusion Findings: Right heart margin obscured by adjacent pleural parenchymal opacity. Persistent moderate to large rig ht effusion. Trace left effusion and patchy left basilar opacity also remains. Some mild patchy densi ty peripheral left midlung shows partial improvement. Impression: 1. Continued moderate to large right pleural effusion. 2. Similar trace left effusion with adjacent atelectasis and/or consolidation. 3. Improving aeration at the left midlung.
[2019-03-10] MEDS: LACTATED RINGERS 1,000 ML IV SCH ×4 (09:01→21:32)
[2019-03-10] MEDS: MAGNESIUM SULFATE-D5W PMX 1 GM in DEXTROSE/WATER 1 100ML.BAG IVPB SCH ×2 (09:50→13:28)
[2019-03-10] MEDS ORDERED: fentaNYL (PF) 50 MCG/ML 2 ML AMP ONE (10:48)
[2019-03-10] MEDS ORDERED: KETAMINE 10 MG/ML 20 ML VIAL ONE (10:48)
[2019-03-10] MEDS ORDERED: PROPOFOL 10 MG/ML 20 ML VIAL IV ONE (10:48)
[2019-03-10] MEDS ORDERED: MIDAZOLAM 2 MG/2 ML VIAL ONE (10:48)
[2019-03-10] MEDS ORDERED: SODIUM CHLORIDE 0.9% 50 ML with ceFAZolin 1,000 MG IV ONE ×2 (11:02)
[2019-03-10] MEDS ORDERED: LIDOCAINE 1% INJ 10MG/ML (10 ML MDV) SQ ONE (11:18)
[2019-03-10] MEDS: SODIUM CHLORIDE 0.9% 1,000 ML IV SCH (11:28)
--- NOTE | 2019-03-10 11:39 | P.OP ---
Date of Procedure: 03/10/19 Preoperative Diagnosis: Recurrent right pleural effusion Postoperative Diagnosis: Same Procedure(s) Performed: Right Pleurx catheter placement with fluoroscopy Implants: Pleurx catheter Anesthesia: MAC Surgeon: Charles Tucker Estimated Blood Loss (ml): 2 IV fluids (ml): 200 Urine output (ml): 0 Pathology: other (Right pleural fluid for cytology) Condition: stable Disposition: PACU Indications for Procedure: 89-year-old male who is had 2 previous thoracenteses for exudative pleural effusion without definitive diagnosis. He presents at this time with shortness of breath and large recurrent pleural effusion. Pleurx catheter placement was requested by pulmonary medicine. Operative Findings: The right pleural space was drained after placing the Pleurx catheter and over 1 800 mL of serous fluid was obtained Description of Procedure: The patient was brought to the operating room, placed supine on the operating table and appropriately positioned. Right chest was percussed and the area of fluid was identified and marked. The right chest and right upper quadrant were sterilely prepped and draped. The marked area was anesthetized with 1% lid ocaine. A skinny needle was used to confirm presence of fluid beneath this site and an 18-gauge needle was advanced into the thoracic cavity. Guidewire was threaded through the 18-gauge needle and presence in the pleural space was confirmed on fluoroscopy. The 18-gauge needle was removed and the wire left in place. The site was enlarged to about a centimeter and a quarter with an 11 blade and a small subcutaneous space was dissected out with a hemostat. Counterincision was made in the right upper quadrant under local anesthesia in the Pleurx catheter was tunneled from here out to the site with the wire. The cuff was positioned just subcutaneous. Introducer and dilator were placed over the guidewire and through the introducer sheath the Pleurx catheter was fed into the right pleural space. Introducer sheath was removed. Fluoroscopy confirmed placement of the Pleurx catheter in the inferior portion of the right pleural space. Pleurx catheter was connected to suction and 1800 mL of serous fluid was obtained. The catheter was secured at the exit site with a 2-0 silk. The entry site was closed with a 4-0 Vicryl subcuticular stitch and dressed with skin glue. And it was applied over this once the glue was dry. The Pleurx was disconnected from suction once all the fluid had been evacuated and capped. Standard Pleurx dressing was applied. Patient was transferred to recovery in stable condition.
--- NOTE | 2019-03-10 12:14 | XR ---
EXAMINATION TYPE: XR chest 1V portable DATE OF EXAM: 03/10/2019 Comparison: 03/10/2019 Clinical History: 89-year-old male post Pleurx placement, once in PACU Findings: Limits of normal in size. Right hilar rounded opacity. Loculated right basilar pneumothorax with Pleu rx catheter in place. Visualized upper lungs are clear. Possible trace left pleural effusion. Impression: 1. Evacuation of most of the right pleural effusion with appearance of a loculated pneumothorax now a t the right base. Pleurx catheter noted. 2. Rounded density right perihilar region could represent underlying mass. 3. Possible trace left effusion.
--- NOTE | 2019-03-10 14:30 | P.PN ---
Subjective Progress Note Date: 03/10/19 Principal diagnosis: Shortness of breath Patient was seen and examined. No acute events overnight. Patient reports significant improvement in his breathing since Pleurx catheter insertion. Patient complains of pain at the site of incision, worsened with deep inspiration. He denies any nausea or vomiting. No fever or chills. Eating lunch comfortably. Does not have home oxygen. Objective - Vital Signs Vital signs: Vital Signs Temp 97.6 F 03/10/19 12:50 Pulse 76 03/10/19 12:50 Resp 16 03/10/19 12:50 BP 116/54 03/10/19 12:50 Pulse Ox 97 03/10/19 12:50 Intake & Output 03/09/19 03/10/19 03/10/19 18:59 06:59 18:59 Intake Total 770 750 Output Total 412 604 2739 Balance 170 -420 -1502 Weight 77.7 kg Intake: IV 750 Intake, IV Titration 50 Amount Sodium Chloride 0.9% 1, 50 000 ml @ 50 mls/hr IV . Q20H [facility] Rx#:[id number] Oral 720 Output: Urine 600 420 400 Pleural Fluid 1850 Estimated Blood Loss 2 Other: Voiding Method Indwelling Catheter Indwelling Catheter Indwelling Catheter # Bowel Movements 1 - Exam General: [non toxic], [no distress on 3 L nasal cannula], [appears at stated age] Derm: [warm], [dry] Head: [atraumatic], [normocephalic], [symmetric] Eyes: [EOMI], [no lid lag], [anicteric sclera] Mouth: [no lip lesion], [mucus membranes moist] Cardiovascular: [S1S2 reg], [no murmur], [Pleurx catheter inserted right lateral chest] Lungs: [CTA bilateral], [no rhonchi, no rales] , [no accessory muscle use] Abdominal: [soft], [ nontender to palpation], [no guarding], [no appreciable organomegaly] Ext: [no gross muscle atrophy], [no edema], [no contractures] Neuro: [no focal neuro deficits] Psych: [Alert], [oriented], [appropriate affect] - Labs CBC & Chem 7: 03/10/19 07:10 03/10/19 07:10 Labs: Abnormal Lab Results - Last 24 Hours (Table) 03/09/19 03/10/19 03/10/19 Range/Units 17:26 07:10 07:10 RBC 2.59 L (4.30-5.90) m/uL Hgb 7.6 L (13.0-17.5) gm/dL Hct 23.0 L (39.0-53.0) % Sodium 125 L 127 L (137-145) mmol/L Chloride 92 L (98-107) mmol/L Calcium 8.2 L (8.4-10.2) mg/dL Magnesium 1.4 L (1.6-2.3) mg/dL Assessment and Plan Assessment: Recurrent right-sided pleural effusion, loculated Hypomagnesemia Hyponatremia Hypothyroidism Urinary retention Pleurx catheter inserted today, confirmed on chest x-ray. Plans: Dorothy Dilaudid for pain management. O2 per NC to maintain O2 saturation greater than 92%. Follow pulmonology recommendations. Magnesium 1.4. Plans: Replace via protocol. Sodium 127. 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 High urine osmolality along with urine sodium. Plans: Continue normal saline at 50 mL per hour. Follow nephrology recommendations. Patient might benefit from fluid restriction? Daily BMP. Plans: Continue Synthroid. Plans: Continue Grajeda catheter. Continue Flomax. Voiding trials. [Patient admitted for recurrent right-sided pleural effusion. Underwent Pleurx catheter today. He is pending clinical improvement. Pulmonology on board. Likely DC in 1-2 days.]
[2019-03-10] MEDS: ACETAMINOPHEN TAB 325 MG TAB PO PRN (16:31)
--- NOTE | 2019-03-10 16:32 | P.PN ---
Subjective Progress Note Date: 03/10/19 Principal diagnosis: Recurrent right-sided pleural effusion, exudative On 03/10/2019 patient seen in follow-up on selective care unit, he is awake and alert, today he had right Pleurx catheter placed under fluoroscopy by Dr. Tucker, and there was 1800 mL of serous fluid drained. Follow-up chest x-ray showed evacuation of most of the right pleural effusion with appearance of a loculated pneumothorax at the right base, and a rounded density in the right perihilar region that could represent underlying mass, and possible trace left pleural effusion. Pleural fluid was sent for cytology. Today's labs have been reviewed, showing white blood cell count of 9.5, hemoglobin of 7.6, correlation profile was within normal limits, sodium is improving, up to 127, patient is on fluid restriction, potassium is 4.1, chloride is 92, renal profile is within normal limits, nephrology is following. Today's magnesium is 1.4. Patient was seen in follow-up following his surgical procedure, he is awake and alert, in no acute distress, he is currently on 2 L of oxygen with a pulse ox of 96%, lung sounds reveal some bibasilar rhonchi, and diminished breath sounds over right lower lobe, right anterior Pleurx catheter is taped to the chest wall, under a sterile dressing. Vital signs are stable, no specific complaints. Objective - Vital Signs Vital signs: Vital Signs Temp 97.9 F 03/10/19 15:59 Pulse 82 03/10/19 15:59 Resp 18 03/10/19 15:59 BP 103/65 03/10/19 15:59 Pulse Ox 96 03/10/19 15:59 Intake & Output 03/09/19 03/10/19 03/10/19 18:59 06:59 18:59 Intake Total 770 750 Output Total 985 536 5289 Balance 170 420 -1902 Weight 77.7 kg Intake: IV 750 Intake, IV Titration 50 Amount Sodium Chloride 0.9% 1, 50 000 ml @ 50 mls/hr IV . Q20H [facility] Rx#:[id number] Oral 720 Output: Urine 600 420 800 Pleural Fluid 1850 Estimated Blood Loss 2 Other: Voiding Method Indwelling Catheter Indwelling Catheter Indwelling Catheter # Bowel Movements 1 - Exam GENERAL EXAM: Alert, pleasant, 89-year-old white male, on 2 L of oxygen with a pulse ox of 96% comfortable in no apparent distress. HEAD: Normocephalic/atraumatic. EYES: Normal reaction of pupils, equal size. Conjunctiva pink, sclera white. NOSE: Clear with pink turbinates. THROAT: No erythema or exudates. NECK: No masses, no JVD, no thyroid enlargement, no adenopathy. CHEST: No chest wall deformity. Symmetrical expansion. Right anterior chest wall proximal catheters taped to the chest wall under sterile dressing LUNGS: Equal air entry with management sounds over right lower lobe, and bibasi lar rhonchi, CVS: Regular rate and rhythm, normal S1 and S2, no gallops, no murmurs, no rubs ABDOMEN: Soft, nontender. No hepatosplenomegaly, normal bowel sounds, no guarding or rigidity. EXTREMITIES: No clubbing, no edema, no cyanosis, 2+ pulses and upper and lower extremities. MUSCULOSKELETAL: Muscle strength and tone normal. SPINE: No scoliosis or deformity SKIN: No rashes CENTRAL NERVOUS SYSTEM: Alert and oriented -3. No focal deficits, tone is normal in all 4 extremities. PSYCHIATRIC: Alert and oriented -3. Appropriate affect. Intact judgment and insight. - Labs CBC & Chem 7: 03/10/19 07:10 03/10/19 07:10 Labs: Abnormal Lab Results - Last 24 Hours (Table) 03/09/19 03/10/19 03/10/19 Range/Units 17:26 07:10 07:10 RBC 2.59 L (4.30-5.90) m/uL Hgb 7.6 L (13.0-17.5) gm/dL Hct 23.0 L (39.0-53.0) % Sodium 125 L 127 L (137-145) mmol/L Chloride 92 L (98-107) mmol/L Calcium 8.2 L (8.4-10.2) mg/dL Magnesium 1.4 L (1.6-2.3) mg/dL Assessment and Plan Plan: Assessment: #1 Recurrent right-sided pleural effusion, status post thoracentesis 3 with negative cytology and microbiology, status post bronchoscopy with airway examination negative for malignancy. Plan is for Pleurx catheter placement 03/10/2019. 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 #4 Hypertension. #5 Gastroesophageal reflux disease. #6 Degenerative joint disease. #7 History of pulmonary embolism. #8 History of previous tracheostomy. Plan: We'll continue current medical treatment, encourage deep breathing and coughing, pleural fluid cytology is pending, vital signs are stable, no acute distress, follow-up chest x-ray has been reviewed, showing evacuation of most of the right-sided pleural effusion, and the rounded density in the right perihilar region. Possibility of occult malignancy is possible and is suspected however because of patient's advanced age and comorbidities, even if the pleural fluid came back positive for malignancy, the best treatment we could offer the patient would probably be is SBRT. Will await the results of the pleural fluid cytology, encourage incentive spirometry use. We'll continue to follow. I performed a history & physical examination of the patient and discussed their management with my nurse practitioner, Parris Grimes. I reviewed the nurse practitioner's note and agree with the documented findings and plan of care. L kei sounds are positive for diminished breath sounds over right lower lobe, with bibasilar rhonchi. The findings and the impression was discussed with the patient. I attest to the documentation by the nurse practitioner. Time with Patient: Less than 30
--- NOTE | 2019-03-10 18:01 | FL ---
EXAMINATION TYPE: FL guidance operating room DATE OF EXAM: 03/10/2019 FLUOROSCOPY Fluoroscopy time of 14 seconds was used during Pleurx catheter placement. 1 image/s document/s the mattie wheeler.
[2019-03-10] MEDS: MELATONIN 3 MG TABLET PO PRN (21:31)
[2019-03-10] MEDS: TAMSULOSIN 0.4 MG CAP.ER.24H PO SCH (21:31)
[2019-03-11] MEDS: LEVOTHYROXINE 50 MCG TAB PO SCH (06:47)
[2019-03-11] MEDS: PANTOPRAZOLE 40 MG TABLET PO SCH (06:47)
--- NOTE | 2019-03-11 07:27 | XR ---
EXAMINATION TYPE: XR chest 1V portable DATE OF EXAM: 03/11/2019 CLINICAL HISTORY: Difficulty breathing progress study. Pleural drainage catheter. TECHNIQUE: Single AP portable upright view of the chest is obtained. COMPARISON: Chest x-ray from one day earlier and older studies. FINDINGS: There is persistent right basilar pleural drainage catheter with adjacent subcutaneous emp hysema. There is worsening right basilar opacity. There is stable left basilar opacity. Cardiac silho uette size is stable mildly enlarged with atherosclerotic thoracic aorta. Osseous structures are inta ct. IMPRESSION: Persistent mild cardiomegaly and small to tiny left pleural effusion with associated left basilar atelectasis and/or infiltrate. Persistent right basilar drainage catheter with stable size o f the air-filled cavity but worsening fluid component or hemothorax is suspected. Stable adjacent rig ht basilar atelectasis and/or infiltrate.
--- NOTE | 2019-03-11 09:13 | P.PN ---
Subjective Progress Note Date: 03/11/19 Principal diagnosis: Recurrent right pleural effusion, acute urinary retention, hyponatremia, hypomagnesemia. 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 POD #1 right Pleurx catheter placement with fluoroscopy The patient's currently sitting up in bed in no acute distress. Denies pain or shortness of breath. Patient states he feels much better since Pleurx catheter placed. No new concerns. Objective - Vital Signs Vital signs: Vital Signs Temp 98.3 F 03/11/19 04:20 Pulse 92 03/11/19 04:20 Resp 18 03/11/19 04:20 BP 122/53 03/11/19 04:20 Pulse Ox 93 L 03/11/19 04:20 Intake & Output 03/10/19 03/11/19 03/11/19 18:59 06:59 18:59 Intake Total 750 640 240 Output Total 2652 400 Balance -1902 240 240 Weight 73.8 kg Intake: IV 750 Intake, IV Titration 400 Amount Sodium Chloride 0.9% 50 400 ml @ 0 mls/hr IV .STK-MED ONE with ceFAZolin 1,000 mg Rx#:[id number] Oral 240 240 Output: Urine 800 400 Pleural Fluid 1850 Estimated Blood Loss 2 Other: Voiding Method Indwelling Catheter Indwelling Catheter - Constitutional General appearance: Present: cooperative, no acute distress - Respiratory Details: Lungs sounds diminished bilaterally. Respirations even, nonlabored. Currently on 2 L nasal cannula with oxygen saturation 97%. Right Pleurx catheter present covered with dry intact dressing. - Cardiovascular Details: S1, S2 present. Regular rate and rhythm, sinus rhythm on telemetry. Palpable peripheral pulses bilaterally. No edema present. No calf pain or tenderness noted. - Gastrointestinal Gastrointestinal Comment(s): Abdomen soft, nontender, nondistended. Active bowel sounds 4 quadrants. Tolerating diet. - Genitourinary Genitourinary Comment(s): Grajeda present draining clear, yellow urine. Output 400 mL overnight - Integumentary Integumentary Comment(s): Skin is warm and dry with evidence of good perfusion. - Neurologic Neurologic: Present: CNII-XII intact - Musculoskeletal Musculoskeletal: Present: gait normal, strength equal bilaterally - Psychiatric Psychiatric: Present: A&O x's 3, appropriate affect, intact judgment & insight - Allied health notes Allied health notes reviewed: nursing - Labs CBC & Chem 7: 03/10/19 07:10 03/10/19 07:10 Labs: Abnormal Lab Results - Last 24 Hours (Table) 03/11/19 Range/Units 06:20 Osmolality 266 L (280-301) mosm/kg - Imaging and Cardiology Chest x-ray: report reviewed, image reviewed Assessment and Plan Assessment: 1. Recurrent right-sided pleural effusion 2. Acute urinary retention, history of BPH 3. Hyponatremia 4. Hypomagnesemia 5. Hypertension 6. Hypothyroidism 7. History of laryngeal cancer status post chemo and radiation, status post tracheostomy Plan: 1. Pleurx catheter to be drained this morning with teaching it to patient and family. 2. Wean O2 as tolerated. Incentive spirometry ordered, encourage use. 3. Medical management per primary care service 4. Patient may be discharged to home with home care from our standpoint when okay with other services. Pleurx catheter discharge instructions placed on the discharge plan. 5. Will continue to see as needed while hospitalized. Please call with any further questions Time with Patient: Greater than 30
[2019-03-11 09:24] LABS: Calcium 8.2 mg/dL (8.4-10.2); Potassium 4.7 mmol/L (3.5-5.1)
[2019-03-11] MEDS: POTASSIUM CHLORIDE ER 10 MEQ TAB.ER.PRT PO SCH (09:32)
[2019-03-11] MEDS: amLODIPine 10 MG TAB PO SCH (09:32)
[2019-03-11] MEDS: LISINOPRIL 20 MG TAB PO SCH (09:32)
[2019-03-11] MEDS: MULTIVITAMINS, THERA 1 EACH TAB PO SCH (09:32)
[2019-03-11] MEDS: THIAMINE 100 MG TAB PO SCH (09:32)
[2019-03-11] MEDS: SODIUM CHLORIDE 0.9% 1,000 ML IV SCH (11:10)
--- NOTE | 2019-03-11 11:40 | P.PN ---
Subjective Progress Note Date: 03/11/19 Principal diagnosis: Recurrent right-sided pleural effusions. This is a pleasant 89-year-old gentleman with a history of recurrent right-sided pleural effusions. Status post 3 previous thoracentesis. The effusions are exudative in nature. He had also undergone bronchoscopy with BAL. He presented here to the hospital again with complaints of increasing weakness and inability to stand. He was found to be hyponatremic with a sodium of 124. He is seen today in follow-up on the selective care unit. Currently awake and alert in no acute distress. Maintaining O2 saturations in the low 90s on 3 L/m per nasal cannula. He's been afebrile. Hemodynamically stable. Today's chest x-ray shows overall stable findings. There is evidence of cardiomegaly with tiny left pleural effusion and associated left basilar atelectasis/infiltrate. There is also moderate to large right-sided pleural effusion with atelectasis/infiltrate. The plan is for Pleurx catheter placement tomorrow by Dr. Tucker. Current sodium 125. Potassium 4.0. Chloride 90. Bicarb 24. Creatinine 0.99. Currently with a 0.9 normal saline at 50 MLS per hour. The patient is seen today 03/11/2019 in follow-up on the selective care unit. He is currently awake and alert in no acute distress. Sitting up in a chair at the bedside. Chest x-ray shows persistent mild cardiomegaly with small to tiny left pleural effusion with associated left basilar atelectasis/infiltrate. There is persistent right basilar drainage catheter in place with air-filled cavity but worsening fluid component or hemothorax is suspected. Stable adjacent right basilar atelectasis/infiltrate. Sodium 127. Creatinine 1.23. Objective - Vital Signs Vital signs: Vital Signs Temp 98.3 F 03/11/19 08:00 Pulse 88 03/11/19 08:00 Resp 18 03/11/19 08:10 BP 112/58 03/11/19 08:00 Pulse Ox 95 03/11/19 08:10 Intake & Output 03/10/19 03/11/19 03/11/19 18:59 06:59 18:59 Intake Total 750 640 250 Output Total 2652 400 Balance -1902 240 250 Weight 73.8 kg Intake: IV 750 10 Invasive Line 1 10 Intake, IV Titration 400 Amount Sodium Chloride 0.9% 50 400 ml @ 0 mls/hr IV .STK-MED ONE with ceFAZolin 1,000 mg Rx#:[id number] Oral 240 240 Output: Urine 800 400 Pleural Fluid 1850 Estimated Blood Loss 2 Other: Voiding Method Indwelling Catheter Indwelling Catheter Indwelling Catheter - Exam GENERAL EXAM: Alert, pleasant 89-year-old gentleman, comfortable in no apparent distress. On 3 L nasal cannula. HEAD: Normocephalic. EYES: Normal reaction of pupils, equal size. NOSE: Clear with pink turbinates. THROAT: No erythema or exudates. NECK: No masses, no JVD. CHEST: No chest wall deformity. Left Pleurx catheter placed. LUNGS: Equal air entry with crackles in the posterior bases right greater than left with dullness, diminished. CVS: S1 and S2 normal with no audible murmur, regular rhythm. ABDOMEN: No hepatosplenomegaly, normal bowel sounds, no guarding or rigidity. SPINE: No scoliosis or deformity SKIN: No rashes CENTRAL NERVOUS SYSTEM: No focal deficits, tone is normal in all 4 extremities. EXTREMITIES: There is no peripheral edema. No clubbing, no cyanosis. Peripheral pulses are intact. - Labs CBC & Chem 7: 03/10/19 07:10 03/11/19 06:20 Labs: Abnormal Lab Results - Last 24 Hours (Table) 03/11/19 03/11/19 Range/Units 06:20 06:20 Sodium 127 L (137-145) mmol/L Chloride 93 L (98-107) mmol/L BUN 23 H (9-20) mg/dL Glucose 116 H (74-99) mg/dL Osmolality 266 L (280-301) mosm/kg Calcium 8.2 L (8.4-10.2) mg/dL Assessment and Plan Assessment: Impression: #1 Recurrent right-sided pleural effusion, status post thoracentesis 3 with negative cytology and microbiology, status post bronchoscopy with airway examination negative for malignancy. Pleurx catheter placed 03/10/2019. Cytology pending. #2 Hyponatremia, current sodium 125. #3 History of laryngeal carcinoma, status post chemoradiation. #4 Hypertension. #5 Gastroesophageal reflux disease. #6 Degenerative joint disease. #7 History of pulmonary embolism. #8 History of previous tracheostomy. Plan: The patient was seen and evaluated by Dr. Sanchez. He is currently stable from the pulmonary standpoint. The plan is to discharge the patient home with his Pleurx catheter in place. Education has been provided to the family. Visiting nurses are to be scheduled as well well. I, the cosigning physician, performed a history & physical examination of the patient. Lungs sounds with basilar crackles right greater than left, dullness. Pleurx catheter in place. Maintaining good O2 saturations in the 90s on 3 L/m per nasal cannula I discussed the assessment and plan of care with my nurse practitioner, Ramila Castrejon. I attest to the above note as dictated by her.
[2019-03-11] MEDS ORDERED: SODIUM CHLORIDE TAB 1 GM TAB PO STA (11:43)
--- NOTE | 2019-03-11 12:50 | P.DS ---
Providers Date of admission: 03/07/19 12:42 Expected date of discharge: 03/11/19 Attending physician: Justa Roldan DO Consults: 03/07/19 12:41 Consult Physician Urgent Consulting Provider: Mohan Sanchez Consult Reason/Comments: Pleural effusion Do you want consulting provider notified?: Yes 03/07/19 15:02 Consult Physician Routine Consulting Provider: Tim Butler Consult Reason/Comments: pleural effusion Do you want consulting provider notified?: Yes 03/08/19 13:54 Consult Physician Routine Consulting Provider: Phil Lynn Consult Reason/Comments: Hyponatremia Do you want consulting provider notified?: Yes Primary care physician: Isaiah Ascencio Hospital Course: 89-year-old male with a past medical history of recurrent pleural effusion since January 2019 requiring thoracentesis 3, prior laryngeal cancer status post chemo, radiation, and tracheostomy, and hypertension as well as multiple other comorbid conditions who presented to the ER with weakness. On arrival to the emergency department he underwent an extensive evaluation. His initial heart rate was 117. Laboratory analysis showed a hemoglobin of 8.4, sodium 124, glucose 137, magnesium 0.5, and albumin 3.3. Chest x-ray showed left basilar acute atelectasis or infiltrate as well as a moderate right-sided pleural effusion with no significant change. He has seen his PCP multiple times. Dr. Ascencio discovered a pleural effusion on the right. He initially had a thoracentesis done along with CAT scan on [facility]. He was then referred to Dr. Butler who did not feel surgery was indicated at this point in time but referred him to Dr. Sanchez. He underwent [address] Sanchez on 02/04 which was hemorrhagic in nature, he then underwent bronchoscopy on 02/26 pathology consistent with reactive cells but no signs of malignancy. Had worsening shortness of breath and underwent thoracentesis with interventional radiology on 03/02. Patient underwent Pleurx catheter placement on 03/10/2018 under cardiothoracic surgery. 1800 mL of serous fluid was drained. Pleural fluid was sent for cytology. Patient was seen and examined prior to discharge. No acute events overnight. Patient reports considerable improvement in his breathing since Pleurx catheter was inserted. He denies any chest pain, shortness of breath or palpitations. No nausea or vomiting. No fever or chills. He is looking for to going home. General: [non toxic], [no distress on 3 L nasal cannula], [appears at stated age] Derm: [warm], [dry] Head: [atraumatic], [normocephalic], [symmetric] Eyes: [EOMI], [no lid lag], [anicteric sclera] Mouth: [no lip lesion], [mucus membranes moist] Cardiovascular: [S1S2 reg], [no murmur], [Pleurx catheter inserted right lateral chest] Lungs: [CTA bilateral], [no rhonchi, no rales] , [no accessory muscle use] Abdominal: [soft], [ nontender to palpation], [no guarding], [no appreciable organomegaly] Ext: [no gross muscle atrophy], [no edema], [no contractures] Neuro: [no focal neuro deficits] Psych: [Alert], [oriented], [appropriate affect] Recurrent right-sided pleural effusion, loculated Hypomagnesemia Hyponatremia Hypothyroidism Urinary retention Pleurx catheter inserted today, confirmed on chest x-ray. Repeat chest x-ray this morning shows small to tiny left pleural effusion, persistent right basilar drainage catheter with air-filled cavity. Plans: [place] for pain management. O2 per [place] to maintain O2 saturation greater than 92%. Follow pulmonology recommendations. Magnesium 1.4 to 1.7. Plans: Replace via protocol. Sodium 127. 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 High urine osmolality along with urine sodium. Plans: Continue normal saline at 50 mL per hour. Follow nephrology recommendations. Asymptomatic, repeat in 3 days. Daily BMP. Plans: Continue Synthroid. Plans: DC Grajeda catheter. Continue Flomax. Voiding trials. [Patient admitted for recurrent right-sided pleural effusion. Underwent Pleurx catheter yesterday. Cleared by cardiothoracic surgery and pulmonology. Grajeda catheter removed, waiting for patient to urinate. Follow 6 minute walk test for home O2. Possible DC today.] Pertinent Studies: Chest x-ray, echocardiogram Procedures: Pleurx catheter insertion Patient Condition at Discharge: Stable Plan - Discharge Summary Discharge Rx Participant: No New Discharge Prescriptions: New RX: HYDROcodone/APAP 5-325MG [[place] 5-325] 1 each PO Q4HR PRN #18 tab PRN Reason: Moderate Pain Continue RX: Multivitamin/Iron/Folic Acid [Centrum Complete Multivit Tab] 1 tab PO DAILY RX: amLODIPine BESYLATE/BENAZEPRIL [amLODIPine BESYLATE/BENAZEPRIL 10-40 MG] 1 cap PO DAILY RX: Tamsulosin HCl [Flomax] 0.4 mg PO HS RX: Omeprazole [PriLOSEC] 20 mg PO DAILY RX: Thiamine [Vitamin B-1] 100 mg PO DAILY RX: Ferrous Sulfate [Iron (65 MG Elemental)] 325 mg PO DAILY RX: Potassium Chloride [Klor-Con 10] 10 meq PO DAILY RX: Furosemide [Lasix] 20 mg PO DAILY RX: Levothyroxine Sodium [Synthroid] 50 mcg PO DAILY RX: Acetaminophen/Diphenhydramine [Tylenol PM 500-25mg] 1 tab PO HS Discharge Medication List RX: Multivitamin/Iron/Folic Acid [Centrum Complete Multivit Tab] 1 tab PO DAILY 08/25/17 [History] RX: Omeprazole [PriLOSEC] 20 mg PO DAILY 08/25/17 [History] RX: Tamsulosin HCl [Flomax] 0.4 mg PO HS 08/25/17 [History] RX: amLODIPine BESYLATE/BENAZEPRIL [amLODIPine BESYLATE/BENAZEPRIL 10-40 MG] 1 cap PO DAILY 08/25/17 [History] RX: Thiamine [Vitamin B-1] 100 mg PO DAILY 02/23/19 [History] RX: Ferrous Sulfate [Iron (65 MG Elemental)] 325 mg PO DAILY 02/25/19 [History] RX: Furosemide [Lasix] 20 mg PO DAILY 03/02/19 [History] RX: Potassium Chloride [Klor-Con 10] 10 meq PO DAILY 03/02/19 [History] RX: Acetaminophen/Diphenhydramine [Tylenol PM 500-25mg] 1 tab PO HS 03/07/19 [History] RX: Levothyroxine Sodium [Synthroid] 50 mcg PO DAILY 03/07/19 [History] RX: HYDROcodone/APAP 5-325MG [[place]rell 5-325] 1 each PO Q4HR PRN #18 tab 03/11/19 [Rx] Follow up Appointment(s)/Referral(s): Isaiah Ascencio MD [Primary Care Provider] - 1-2 days Esthela Sabillon MD [STAFF PHYSICIAN] - 1 Week Mohan Sanchez DO [Doctor of Osteopathic Medicine] - 1 Week [facility] Visiting Nurse, [NON-STAFF] - As Needed Ambulatory/Diagnostic Orders: Complete Blood Count w/diff [LAB.AMB] Time Frame: 3 Days, Location: None Se lected Comprehensive Metabolic Panel [LAB.AMB] Time Frame: 3 Days, Location: None Selected Activity/Diet/Wound Care/Special Instructions: Pleur-X catheter instructions 1. Home Care is ordered, they will obtain new bottles. 2. May shower after 24 hours, no tub baths/hot tubs. 3. Do not drain more than 1 liter or 1000 mL in 24 hours. 4. New drainage bottle needed with each drainage. 5. Drainage frequency dictated by patient symptoms, may be every day, every other day, weekly, or however often the patient is symptomatic. 6. Please notify REGIONAL MANAGER or office if temperature >101F, excessive pain at insertion site, drainage consistency changes to cloudy or smells bad, catheter falls out, or anything else that concerns you. 7. Contact surgery office with weekly drainage amounts. May fax the amounts. 8. Once drainage is less than 50 mL three times in a row, notify the surgery office for possible removal. Surgery office: , fax REGIONAL MANAGER: Adenike , Anibal Discharge Disposition: HOME SELF-CARE
--- NOTE | 2019-03-11 15:36 | CDI ---
Documentation Clarification Form Date: 03/11/2019 3:16:56 PM From: Divine Snyder RN, CCDS Admit Date: 03/07/2019 12:42:00 PM Patient Name: Drake Alba Visit Number: [id number] Discharge Date: ATTENTION: The Clinical Documentation Specialists (CDI) and [facility] Coding Staff appreciate your assistance in clarifying documentation. Please respond to the clarification below the line at the bottom and electronically sign. The CDI & [facility] Coding staff will review the response and follow-up if needed. Please note: Queries are made part of the Legal Health Record. If you have any questions, please contact the author of this message via ITS. Dr. Braulio Deleon A diagnosis of anemia lacks specificity to accurately reflect your patients severity of condition and clarification is needed. History/Risk Factors: Throat cancer Radiation and Chemotherapy, Hypertension Pulmonary Embolus Former smoker Clinical indicators: 89-year-old male with complaints of difficulty breathing. He has a past medical history of anemia per H&P. Hemoglobin: 8.4, 7.8, 7.6 Hematocrit: 24.6, 23.5 23.0 Treatment: Monitor CBC Theragran PO In order to capture the severity of condition, please clarify the type of anemia and etiology if known: Acute blood loss anemia Acute on chronic blood loss anemia Chronic blood loss anemia Iron deficiency anemia Anemia due to malignancy Nutritional anemia Unable to determine Other, please specify (Last Revision: April 2017) anemia of chronic disease, iron studies were done during previous admissions MTDD
[2019-03-11] MEDS: TAMSULOSIN 0.4 MG CAP.ER.24H PO SCH ×2 (18:17→21:23)
--- NOTE | 2019-03-11 18:35 | PN ---
PROGRESS NOTE Patient is seen for followup for hyponatremia. This morning, patient is sitting up in a bedside chair. He is comfortable. He denies any significant complaints. He wants to go home today. He was maintained on normal saline, however, it looks like it has been turned down to LR at 20 mL an hour. PHYSICAL EXAMINATION: Blood pressure this morning was 122/53, heart rate about 80 per minute. Patient is afebrile. Examination of the heart S1, S2. Examination of the lungs, bilateral breath sounds are heard. Abdomen is soft, nontender. Examination of lower extremities shows trace edema in the feet. [employer] exam grossly intact. LABS: Show sodium 127, potassium 4.7, BUN 23, serum creatinine 1.23, hemoglobin of 7.6 g/dL. ASSESSMENT: 1. Hyponatremia, euvolemic. The patient does have some pedal edema. He was maintained on IV normal saline initially and serum sodium had improved with a small dose of Lasix along with saline. He has been staying at 127 am for the past 2 days. I have advised him to increase his protein intake. He can be discharged and he will be given 1 dose of sodium chloride tabs and he should have labs done as outpatient in about 3-4 days. Avoid thiazide diuretics. May continue with the current dose of Lasix at 20 mg daily. 2. Hypertension, currently controlled. 3. Anemia with no active bleeding noted. Hemoglobin is down to 7.6 g/dL. Previous iron saturation was only 9.9% on 02/16/2019. If patient is not discharged I will give him a dose of IV iron. 4. Hypomagnesemia status post replacement. 5. Hypokalemia, status post replacement. Potassium staying stable at 4.1 to 4.7 mEq/L. PLAN: Okay for discharge. Sodium chloride 1 g x1. Follow up as outpatient with repeat labs in about 4-5 days as outpatient. Maintain good protein intake. Avoid thiazide diuretics. Avoid excessive free water intake as well. MMODL / IJN: [id number] /
[2019-03-12 05:28] VITALS: RESP 20
[2019-03-12] MEDS: PANTOPRAZOLE 40 MG TABLET PO SCH (06:35)
[2019-03-12] MEDS: LEVOTHYROXINE 50 MCG TAB PO SCH (06:35)
[2019-03-12 07:04] LABS: HCT 23.3 % (39.0-53.0); HGB 7.5 gm/dL (13.0-17.5); MCH 29.3 pg (25.0-35.0); MCHC 32.2 g/dL (31.0-37.0); MCV 91.1 fL (80.0-100.0); Mean Platelet Volume 6.9; Platelet Count 315 k/uL (150-450); RBC 2.56 m/uL (4.30-5.90); RDW 14.6 % (11.5-15.5)
[2019-03-12 07:34] VITALS: BP 131/58; PULSE 84; TEMP 97.7
[2019-03-12] MEDS: LACTATED RINGERS 1,000 ML IV SCH ×2 (07:38)
[2019-03-12] MEDS: SODIUM CHLORIDE 0.9% 1,000 ML IV SCH (07:38)
[2019-03-12] MEDS: POTASSIUM CHLORIDE ER 10 MEQ TAB.ER.PRT PO SCH (08:16)
[2019-03-12] MEDS: THIAMINE 100 MG TAB PO SCH (08:16)
[2019-03-12] MEDS: MULTIVITAMINS, THERA 1 EACH TAB PO SCH (08:16)
[2019-03-12] MEDS: TAMSULOSIN 0.4 MG CAP.ER.24H PO SCH (08:16)
[2019-03-12] MEDS: amLODIPine 10 MG TAB PO SCH (08:16)
[2019-03-12] MEDS: LISINOPRIL 20 MG TAB PO SCH (08:16)
--- NOTE | 2019-03-12 09:16 | P.PN ---
Subjective Progress Note Date: 03/12/19 Principal diagnosis: Urinary retention Patient was seen and examined. No acute events overnight. Urinary catheter pulled up around 11 AM yesterday. Patient unable to urinate throughout the day. Bladder scan showed around 300 mL of postvoid residual. Flomax increased to twice a day dosing. Patient was able to urinate freely. Patient denies any chest pain, shortness of breath or palpitations. No nausea or vomiting. No fever or chills. He denies any abdominal pain or dysuria. Objective - Vital Signs Vital signs: Vital Signs Temp 97.7 F 03/12/19 07:32 Pulse 84 03/12/19 07:35 Resp 20 03/12/19 07:32 BP 131/58 03/12/19 07:32 Pulse Ox 98 03/12/19 07:32 Intake & Output 03/11/19 03/12/19 03/12/19 18:59 06:59 18:59 Intake Total 670 30 250 Output Total 500 350 Balance 170 -320 250 Weight 79.9 kg Intake: IV 30 30 10 Invasive Line 1 30 30 10 Oral 640 240 Output: Urine 500 350 Other: Voiding Method Urinal Toilet # Voids 1 - Exam General: [non toxic], [no distress on 2 L nasal cannula], [appears at stated age] Derm: [warm], [dry] Head: [atraumatic], [normocephalic], [symmetric] Eyes: [EOMI], [no lid lag], [anicteric sclera] Mouth: [no lip lesion], [mucus membranes moist] Cardiovascular: [S1S2 reg], [no murmur], [Pleurx catheter inserted right lateral chest] Lungs: [CTA bilateral], [decreased breath sounds on the right side] , [no accessory muscle use] Abdominal: [soft], [ nontender to palpation], [no guarding], [no appreciable organomegaly] Ext: [no gross muscle atrophy], [no edema], [no contractures] Neuro: [no focal neuro deficits] Psych: [Alert], [oriented], [appropriate affect] - Labs CBC & Chem 7: 03/12/19 06:32 03/11/19 06:20 Labs: Abnormal Lab Results - Last 24 Hours (Table) 08/29/19 08/30/19 Range/Units 06:20 06:32 RBC 2.56 L (4.30-5.90) m/uL Hgb 7.5 L (13.0-17.5) gm/dL Hct 23.3 L (39.0-53.0) % Sodium 127 L (137-145) mmol/L Chloride 93 L (98-107) mmol/L BUN 23 H (9-20) mg/dL Glucose 116 H (74-99) mg/dL Calcium 8.2 L (8.4-10.2) mg/dL Assessment and Plan Assessment: Urinary retention Recurrent right-sided pleural effusion, loculated Hypomagnesemia Hyponatremia Hypothyroidism PVR 300. Able to urinate freely since last night. Likely related to BPH. Plans: We'll switch back to Flomax daily. Advised that he can go to twice a day dosing if having difficulty urinating. Patient states that he will follow with his PCP Dr. Ascencio. Pleurx catheter inserted, confirmed on chest x-ray. Plans: [place] for pain management. O2 per [place] to maintain O2 saturation greater than 92%. Follow pulmonology recommendations. Magnesium 1.4 to 1.7. Plans: Replace via protocol. Sodium 127. 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 High urine osmolality along with urine sodium. Plans: Continue normal saline at 50 mL per hour. Follow nephrology recommendations. Asymptomatic, repeat in 3 days. Daily BMP. Plans: Continue Synthroid. [Discharge today.]
[2019-03-12] MEDS ORDERED: SODIUM FERRIC GLUCONAT-SUCROSE 125 MG in SODIUM CHLORIDE 0.9% 100 ML IVPB ONE (10:59)
--- NOTE | 2019-03-12 11:56 | PN ---
PROGRESS NOTE Patient was given a dose of sodium chloride tab yesterday. We do not have labs from today. Patient wants to go home. He is technically discharged. He can go; however, I would like to have a sodium level from today prior to discharge. Patient denies any significant complaints. He is feeling well. No complaints of chest pain, shortness of breath, nausea, vomiting. PHYSICAL EXAMINATION: Blood pressure was 131/58, heart rate 84 per minute. He is afebrile. Examination of the heart S1, S2. Examination of the lungs, bilateral breath sounds are heard. Abdomen is soft, nontender. Examination of the lower extremities shows pedal edema 1+ bilaterally. REPAIRER HELPER exam grossly intact. LABS: Not available from today. ASSESSMENT: 1. Hyponatremia, euvolemic, status post dose of sodium chloride yesterday. I will check a serum sodium today prior to discharge. Patient may continue with his current dose of loop diuretics. 2. Hypertension, controlled. 3. Anemia with no active bleeding noted. Hemoglobin staying at 7.5 g/dL. 4. Hypomagnesemia, status post replacement. 5. Hypokalemia on initial admission, currently stable. PLAN: Check sodium today. Maintain oral Lasix. Avoid excessive free water intake. Agree with increasing Flomax for urine retention, IV iron x 1 prior to discharge. MMODL / IJN: [id number] /
== END 2019-03-12 10:45 | disposition home health service (06) | DRG 187 ==
LOC: EC 10:34 → 3SCARD 12:42
PROVIDERS: ADMIT Internal Medicine; ATTEND Internal Medicine
PROC: 0W9930Z Drainage of Right Pleural Cavity with Drainage Device, Percutaneous Approach (ICD-10-PCS; principal; 2019-03-10 10:00)
DX: J90 Pleural effusion, not elsewhere classified (principal); E22.2 Syndrome of inappropriate secretion of antidiuretic hormone; J98.11 Atelectasis; J94.2 Hemothorax; E83.42 Hypomagnesemia; I11.9 Hypertensive heart disease without heart failure; D64.9 Anemia, unspecified; E03.9 Hypothyroidism, unspecified; E78.5 Hyperlipidemia, unspecified; E87.6 Hypokalemia; I25.10 Atherosclerotic heart disease of native coronary artery without angina pectoris; R33.9 Retention of urine, unspecified; R19.7 Diarrhea, unspecified; M10.9 Gout, unspecified; K21.9 Gastro-esophageal reflux disease without esophagitis; M19.90 Unspecified osteoarthritis, unspecified site; N40.1 Benign prostatic hyperplasia with lower urinary tract symptoms; Z96.641 Presence of right artificial hip joint; Z79.890 Hormone replacement therapy; Z79.899 Other long term (current) drug therapy; Z80.51 Family history of malignant neoplasm of kidney; Z82.49 Family history of ischemic heart disease and other diseases of the circulatory system; Z85.21 Personal history of malignant neoplasm of larynx; Z85.819 Personal history of malignant neoplasm of unspecified site of lip, oral cavity, and pharynx; Z86.711 Personal history of pulmonary embolism; Z87.891 Personal history of nicotine dependence; Z92.21 Personal history of antineoplastic chemotherapy; Z92.3 Personal history of irradiation; Z98.890 Other specified postprocedural states
CPT/HCPCS: 36415; 51702; 71045; 71046; 74230; 80048; 80053; 81001; 83605; 83735; 83880; 83930; 83935; 84100; 84295; 84300; 84443; 84484; 85025; 85027; 85610; 85730; 86850; 86900; 86901; 88108; 88305; 93005; 93306; 96365; 96366; 96375; 99285

== ENCOUNTER → 2019-09-01 | Outpatient (CLI) | payer MEDICARE ==
--- NOTE | 2019-09-01 14:09 | US ---
EXAMINATION TYPE: US chest DATE OF EXAM: 09/01/2019 COMPARISON: NONE CLINICAL HISTORY: J90 pleural effusion. TECHNIQUE: Targeted ultrasound of the posterior lower bilateral hemithoraces EXAM MEASUREMENTS: Right Pleural Effusion pocket size: 4.6 cm Right skin surface to fluid distance: 3.5 cm Right side marked for possible thoracentesis outside the dept, however, pocket is extremely loculated . Pulmonologists are able to review the images in the patient?s EMR. IMPRESSIONS: 1. Loculated right pleural collection
== END | disposition home or self-care (01) ==
LOC: RADUSWWP 13:25
PROVIDERS: ATTEND Internal Medicine Critical Care Medicine
DX: J90 Pleural effusion, not elsewhere classified (principal)
CPT/HCPCS: 76604

== ENCOUNTER 2019-12-20 15:04 | Inpatient (IN) | payer MEDICARE ==
[2019-12-20] MEDS ORDERED: SODIUM CHLORIDE 0.9% 500 ML 500 ML IV STA (15:27)
--- NOTE | 2019-12-20 15:39 | ED ---
Weakness HPI - General Chief complaint: Weakness Stated complaint: weakness Time Seen by Provider: 12/20/19 15:14 Source: patient, family Mode of arrival: wheelchair Limitations: no limitations - History of Present Illness Initial comments: Patient is an 89-year-old male, with history of laryngeal cancer, presenting to the emergency Department with complaints of weakness and has been getting worse over the past 3 months. is helping with history and states that today he was having a hard time walking secondary to his legs being extremely weak and his blood pressure has been low at home so she decided to bring him into ER. Patient denies any fever, chills, chest pains. He denies any recent falls or injuries. He does admit to shortness of breath with exertion as well as decreased appetite and general overall weakness. Denies being on a blood thinner. He normally walks with a cane during the day and a walker at night. He does not use home O2. states that patient takes Tylenol #3's for chronic back pain and to take 1 today, thus why he's been sleeping throughout today. He denies any nausea, vomiting, abdominal pain, diarrhea. There are no other complaints at this time. - Related Data Home Medications Medication Instructions Recorded Confirmed Multivitamin/Iron/Folic Acid 1 tab PO DAILY 08/25/17 03/07/19 [Centrum Complete Multivit Tab] Omeprazole [PriLOSEC] 20 mg PO DAILY 08/25/17 03/07/19 Tamsulosin HCl [Flomax] 0.4 mg PO HS 08/25/17 03/07/19 Ferrous Sulfate [Iron (65 MG 325 mg PO DAILY 02/25/19 03/07/19 Elemental)] Furosemide [Lasix] 20 mg PO DAILY 03/02/19 03/07/19 Potassium Chloride [Klor-Con 10] 10 meq PO DAILY 03/02/19 03/07/19 Acetaminophen-Codeine 300-30mg 1 tab PO HS 12/20/19 12/20/19 [Tylenol w/codeine #3] Ibuprofen [Motrin Ib] 200 - 800 mg PO BID PRN 12/20/19 12/20/19 Levothyroxine Sodium [Synthroid] 25 mcg PO DAILY 12/20/19 12/20/19 Magnesium Citrate 250mg 250 mg PO DAILY 06/08/20 06/08/20 Mirtazapine [Remeron] 7.5 mg PO HS 12/20/19 12/20/19 Sennosides [Senokot] 17.2 mg PO HS 12/20/19 12/20/19 Stool Softener 250mg 250 mg PO HS 12/20/19 12/20/19 Allergies Allergy/AdvReac Type Severity Reaction Status Date / Time No Known Allergies Allergy Verified 12/20/19 16:55 Review of Systems ROS Statement: Those systems with pertinent positive or pertinent negative responses have been documented in the HPI. ROS Other: All systems not noted in ROS Statement are negative. Past Medical History Past Medical History: Cancer, GERD/Reflux, Hyperlipidemia, Hypertension, Osteoarthritis (OA), Pulmonary Embolus (PE), Thyroid Disorder Additional Past Medical History / Comment(s): Laryngeal cancer RADIATION CHEMOTHERAPY completed. Hypothyroidism. BPH. GERD. Coronary artery disease. Anemia. Gout. Diverticulosis. History of Any Multi-Drug Resistant Organisms: None Reported Past Surgical History: Orthopedic Surgery, Tonsillectomy Additional Past Surgical History / Comment(s): RIGHT HIP REPLACEMENT. trach Past Anesthesia/Blood Transfusion Reactions: No Reported Reaction Additional Past Anesthesia/Blood Transfusion Reaction / Comment(s): HAD 2 UNITS DURING CHEMO AT [facility] Past Psychological History: No Psychological Hx Reported Smoking Status: Former smoker Past Alcohol Use History: Daily Past Drug Use History: None Reported - Past Family History Father Family Medical History: Cancer Additional Family Medical History / Comment(s): KIDNEY CANCER Mother Family Medical History: Myocardial Infarction ([place]), Respiratory Disorder General Exam - General Exam Comments Initial Comments: GENERAL: Patient looks fatigued, in no acute distress. HEAD: Atraumatic, normocephalic. EYES: Pupils equal round and reactive to light, extraocular movements intact, sclera anicteric, conjunctiva are normal. Patient has bilateral yellow drainage ENT: TMs normal, nares patent, oropharynx clear without exudates. Moist mucous membranes. NECK: Normal range of motion, supple without lymphadenopathy or JVD. LUNGS: Diminished lower rutherford bilaterally. No wheezes rales or rhonchi. HEART: Regular rate and rhythm without murmurs, rubs or gallops. ABDOMEN: Soft, nontender, normoactive bowel sounds. No guarding, no rebound. No masses appreciated. : Deferred EXTREMITIES: Normal range of motion, no pitting or edema. No clubbing or cyanosis. NEUROLOGICAL: Cranial nerves II through XII grossly intact. Normal speech. PSYCH: Normal mood, normal affect. SKIN: Warm, Dry, normal turgor, no rashes or lesions noted. Limitations: no limitations Course Vital Signs 12/20/19 12/20/19 12/20/19 15:08 15:11 16:11 Temperature 97.5 F L Pulse Rate 62 Respiratory 18 20 20 Rate Blood Pressure 111/68 O2 Sat by Pulse 92 L Oximetry 12/20/19 12/20/19 17:11 17:47 Temperature Pulse Rate 110 H 110 H Respiratory 20 20 Rate Blood Pressure 126/83 126/83 O2 Sat by Pulse 97 97 Oximetry EKG Findings - EKG Comments: EKG Findings:: Atrial fibrillation with RVR, no signs of acute ischemia. Ventricular rate 114, QRS duration 84, QT 306, QTC 421. Medical Decision Making - Medical Decision Making Patient is an 89-year-old male here for weakness has been increasing over the past 3 months. Denies any pain including no chest pain. Decreased appetite, dyspnea with exertion. 92% on room air upon arrival, HR normal, although when EKG was performed that showed atrial fibrillation with RVR. Lab work shows decreased hemoglobin from baseline 8.6. Lactic acid normal, kidney function is at baseline. Troponin is elevated at 0.074. BNP is 5050. Chest x-ray shows right pleural effusion slightly worse then previous exam, a new left small pleural effusion. Patient will be admitted and consult with cardiology and pulmonology. Patient was accepted by Dr. Deleon. Case discussed with Dr. Marley. - Lab Data Result diagrams: 12/20/19 16:05 12/20/19 16:05 Lab Results 12/20/19 12/20/19 12/20/19 Range/Units 16:05 16:05 16:05 WBC 7.7 (3.8-10.6) k/uL RBC 3.15 L (4.30-5.90) m/uL Hgb 8.6 L D (13.0-17.5) gm/dL Hct 27.9 L (39.0-53.0) % MCV 88.4 (80.0-100.0) fL MCH 27.3 (25.0-35.0) pg MCHC 30.9 L (31.0-37.0) g/dL RDW 14.6 (11.5-15.5) % Plt Count 325 (150-450) k/uL Neutrophils % 79 % Lymphocytes % 12 % Monocytes % 6 % Eosinophils % 1 % Basophils % 0 % Neutrophils # 6.1 (1.3-7.7) k/uL Lymphocytes # 0.9 L (1.0-4.8) k/uL Monocytes # 0.5 (0-1.0) k/uL Eosinophils # 0.0 (0-0.7) k/uL Basophils # 0.0 (0-0.2) k/uL PT 10.1 (9.0-12.0) sec INR 1.0 (<1.2) APTT 24.4 (22.0-30.0) sec Sodium 133 L (137-145) mmol/L Potassium 4.8 (3.5-5.1) mmol/L Chloride 98 (98-107) mmol/L Carbon Dioxide 24 (22-30) mmol/L Anion Gap 11 mmol/L BUN 44 H (9-20) mg/dL Creatinine 1.34 H (0.66-1.25) mg/dL Est GFR (CKD-EPI)AfAm 55 (>60 ml/min/1.73 sqM) Est GFR (CKD-EPI)NonAf 48 (>60 ml/min/1.73 sqM) Glucose 122 H (74-99) mg/dL Plasma Lactic Acid Shayne (0.7-2.0) mmol/L Calcium 11.8 H (8.4-10.2) mg/dL Magnesium 1.6 (1.6-2.3) mg/dL Total Bilirubin 0.3 (0.2-1.3) mg/dL AST 20 (17-59) U/L ALT 13 (4-49) U/L Alkaline Phosphatase 83 (38-126) U/L Troponin I (0.000-0.034) ng/mL NT-Pro-B Natriuret Pep pg/mL Total Protein 6.5 (6.3-8.2) g/dL Albumin 3.2 L (3.5-5.0) g/dL Stool Occult Blood (Negative) 12/20/19 12/20/19 12/20/19 Range/Units 16:05 16:05 16:05 WBC (3.8-10.6) k/uL RBC (4.30-5.90) m/uL Hgb (13.0-17.5) gm/dL Hct (39.0-53.0) % MCV (80.0-100.0) fL MCH (25.0-35.0) pg MCHC (31.0-37.0) g/dL RDW (11.5-15.5) % Plt Count (150-450) k/uL Neutrophils % % Lymphocytes % % Monocytes % % Eosinophils % % Basophils % % Neutrophils # (1.3-7.7) k/uL Lymphocytes # (1.0-4.8) k/uL Monocytes # (0-1.0) k/uL Eosinophils # (0-0.7) k/uL Basophils # (0-0.2) k/uL PT (9.0-12.0) sec INR (<1.2) APTT (22.0-30.0) sec Sodium (137-145) mmol/L Potassium (3.5-5.1) mmol/L Chloride (98-107) mmol/L Carbon Dioxide (22-30) mmol/L Anion Gap mmol/L BUN (9-20) mg/dL Creatinine (0.66-1.25) mg/dL Est GFR (CKD-EPI)AfAm (>60 ml/min/1.73 sqM) Est GFR (CKD-EPI)NonAf (>60 ml/min/1.73 sqM) Glucose (74-99) mg/dL Plasma Lactic Acid Shayne 0.9 (0.7-2.0) mmol/L Calcium (8.4-10.2) mg/dL Magnesium (1.6-2.3) mg/dL Total Bilirubin (0.2-1.3) mg/dL AST (17-59) U/L ALT (4-49) U/L Alkaline Phosphatase (38-126) U/L Troponin I 0.074 H* (0.000-0.034) ng/mL NT-Pro-B Natriuret Pep 5050 pg/mL Total Protein (6.3-8.2) g/dL Albumin (3.5-5.0) g/dL Stool Occult Blood (Negative) 06/08/20 Range/Units 17:36 WBC (3.8-10.6) k/uL RBC (4.30-5.90) m/uL Hgb (13.0-17.5) gm/dL Hct (39.0-53.0) % MCV (80.0-100.0) fL MCH (25.0-35.0) pg MCHC (31.0-37.0) g/dL RDW (11.5-15.5) % Plt Count (150-450) k/uL Neutrophils % % Lymphocytes % % Monocytes % % Eosinophils % % Basophils % % Neutrophils # (1.3-7.7) k/uL Lymphocytes # (1.0-4.8) k/uL Monocytes # (0-1.0) k/uL Eosinophils # (0-0.7) k/uL Basophils # (0-0.2) k/uL PT (9.0-12.0) sec INR (<1.2) APTT (22.0-30.0) sec Sodium (137-145) mmol/L Potassium (3.5-5.1) mmol/L Chloride (98-107) mmol/L Carbon Dioxide (22-30) mmol/L Anion Gap mmol/L BUN (9-20) mg/dL Creatinine (0.66-1.25) mg/dL Est GFR (CKD-EPI)AfAm (>60 ml/min/1.73 sqM) Est GFR (CKD-EPI)NonAf (>60 ml/min/1.73 sqM) Glucose (74-99) mg/dL Plasma Lactic Acid Shayne (0.7-2.0) mmol/L Calcium (8.4-10.2) mg/dL Magnesium (1.6-2.3) mg/dL Total Bilirubin (0.2-1.3) mg/dL AST (17-59) U/L ALT (4-49) U/L Alkaline Phosphatase (38-126) U/L Troponin I (0.000-0.034) ng/mL NT-Pro-B Natriuret Pep pg/mL Total Protein (6.3-8.2) g/dL Albumin (3.5-5.0) g/dL Stool Occult Blood Negative (Negative) Disposition Clinical Impression: Weakness, Atrial fibrillation with RVR, Elevated troponin, Pleural effusion Disposition: ADMITTED IP TO THIS HOSP Condition: Good Referrals: Isaiah Ascencio MD [Primary Care Provider] - 1-2 days Decision Date: 12/20/19 Decision Time: 17:24
[2019-12-20 16:16] LABS: Basophils % (A) 0 %; Eosinophils % (A) 1 %; HCT 27.9 % (39.0-53.0); Lymphocytes # (A) 0.9 k/uL (1.0-4.8); Lymphocytes % (A) 12 %; MCH 27.3 pg (25.0-35.0); MCHC 30.9 g/dL (31.0-37.0); MCV 88.4 fL (80.0-100.0); Mean Platelet Volume 6.9; Monocytes # (A) 0.5 k/uL (0-1.0); Monocytes % (A) 6 %; Neutrophils # (A) 6.1 k/uL (1.3-7.7); Neutrophils % (A) 79 %; Platelet Count 325 k/uL (150-450); RBC 3.15 m/uL (4.30-5.90); RDW 14.6 % (11.5-15.5); WBC 7.7 k/uL (3.8-10.6)
[2019-12-20 16:24] LABS: HGB 8.6 gm/dL (13.0-17.5)
[2019-12-20 16:26] LABS: Albumin 3.2 g/dL (3.5-5.0); Calcium 11.8 mg/dL (8.4-10.2); Magnesium 1.6 mg/dL (1.6-2.3); Potassium 4.8 mmol/L (3.5-5.1); Total Bilirubin 0.3 mg/dL (0.2-1.3); Total Protein 6.5 g/dL (6.3-8.2)
[2019-12-20 16:32] LABS: Partial Thromboplastin Time 24.4 sec (22.0-30.0); Prothrombin Time 10.1 sec (9.0-12.0)
--- NOTE | 2019-12-20 16:44 | XR ---
EXAMINATION TYPE: XR chest 2V DATE OF EXAM: 12/20/2019 COMPARISON: 08/25/2019 HISTORY: Weakness TECHNIQUE: FINDINGS: There is moderate right pleural effusion with consolidation right lower lobe. There is smal ler left pleural effusion. There is no heart failure. There is pleural thickening along the right lat eral chest wall. Thoracic aorta is atheromatous. IMPRESSION: Pleural fluid and thickening right lower lobe and right lateral chest wall unchanged. Rig ht pleural effusion slightly worse than old exam. No gross heart failure seen. Pulmonary vascularity increased slightly compared to old exam. Left pleural effusion is new compared to old exam.
[2019-12-20] MEDS ORDERED: NITROGLYCERIN SL TABS 0.4 MG TAB SUBLINGUAL PRN (17:19)
[2019-12-20] MEDS ORDERED: NALOXONE 0.4 MG/ML 1 ML VIAL IV PRN (18:26)
--- NOTE | 2019-12-20 18:46 | P.HPIM ---
History of Present Illness H&P Date: 12/20/19 Chief Complaint: A. fib, generalized weakness 89-year-old male with PMH of laryngeal cancer, hypertension, hypothyroidism, BPH presents to the ED for generalized weakness. Patient reports typically being able to ambulate with a walker. Today, he was unable to stand up. His generalized weakness has been getting worse over the past 3 days. Patient denies any focal neurologic deficits. Patient also reports a decreased appetite and subjective 30 pound weight loss over the past 3 months. He does have a history of laryngeal cancer and follows Dr. Mcgill. He has a history of smoking 40 years ago. Patient also reports some swelling in his bilateral ankles. Patient reports constipation, last bowel movement 4 days ago. He denies any headache, nausea or vomiting, fever or chills, cough, chest pain, shortness of breath, palpitations, changes in urination. He denies any dizziness, numbness/weakness/tingling of the extremities. In the ED, vital signs were stable except for O2 saturation of 92% on room air. EKG showed atrial fibrillation with RVR ventricular rate of 114. Chest x-ray showed pleural fluid and thickening right lower lobe, slightly worsened. CBC showed hemoglobin of 8.6. INR was within normal limits. CMP showed sodium of 133, B1 of 44, creatinine 1.34, calcium 11.8. Troponin was 0.074. BNP was 5050. Stool for occult blood was negative. Patient is admitted for generalized weakness, A. fib with RVR, anemia and pleural effusion with pulmonology and cardiology on consultation. Review of Systems Pertinent positives and negatives as discussed in HPI, a complete review of systems was performed and all other systems are negative. Past Medical History Past Medical History: Cancer, GERD/Reflux, Hyperlipidemia, Hypertension, Osteoar thritis (OA), Pulmonary Embolus (PE), Thyroid Disorder Additional Past Medical History / Comment(s): Laryngeal cancer RADIATION CHEMOTHERAPY completed. Hypothyroidism. BPH. GERD. Coronary artery disease. Anemia. Gout. Diverticulosis. History of Any Multi-Drug Resistant Organisms: None Reported Past Surgical History: Orthopedic Surgery, Tonsillectomy Additional Past Surgical History / Comment(s): RIGHT HIP REPLACEMENT. trach Past Anesthesia/Blood Transfusion Reactions: No Reported Reaction Additional Past Anesthesia/Blood Transfusion Reaction / Comment(s): HAD 2 UNITS DURING CHEMO AT [facility] Past Psychological History: No Psychological Hx Reported Smoking Status: Former smoker Past Alcohol Use History: Daily Past Drug Use History: None Reported - Past Family History Father Family Medical History: Cancer Additional Family Medical History / Comment(s): KIDNEY CANCER Mother Family Medical History: Myocardial Infarction ([place]), Respiratory Disorder Medications and Allergies Home Medications Medication Instructions Recorded Confirmed Type Multivitamin/Iron/Folic Acid 1 tab PO DAILY@1200 08/25/17 12/20/19 History [Centrum Complete Multivit Tab] Omeprazole [PriLOSEC] 20 mg PO DAILY@1200 08/25/17 12/20/19 History Tamsulosin HCl [Flomax] 0.4 mg PO HS 08/25/17 12/20/19 History Ferrous Sulfate [Iron (65 MG 325 mg PO DAILY 02/25/19 12/20/19 History Elemental)] Furosemide [Lasix] 20 mg PO DAILY 03/02/19 12/20/19 History Potassium Chloride [Klor-Con 10] 10 meq PO DAILY 03/02/19 12/20/19 History Acetaminophen-Codeine 300-30mg 1 tab PO 12/20/19 12/20/19 History [Tylenol w/codeine #3] Ibuprofen [Motrin Ib] 200 - 800 mg PO BID PRN 12/20/19 12/20/19 History Levothyroxine Sodium [Synthroid] 25 mcg PO DAILY 12/20/19 12/20/19 History Magnesium Citrate 250mg 250 mg PO DAILY 12/20/19 12/20/19 History Mirtazapine [Remeron] 7.5 mg PO 12/20/19 12/20/19 History Sennosides [Senokot] 17.2 mg PO HS 12/20/19 12/20/19 History Stool Softener 250mg 250 mg PO 12/20/19 12/20/19 History Allergies Allergy/AdvReac Type Severity Reaction Status Date / Time No Known Allergies Allergy Verified 12/20/19 16:55 Physical Exam Vitals: Vital Signs Temp Pulse Resp BP Pulse Ox 12/20/19 17:47 110 H 20 126/83 97 12/20/19 17:11 110 H 20 126/83 97 12/20/19 16:11 20 12/20/19 15:11 20 12/20/19 15:08 97.5 F L 62 18 111/68 92 L Intake and Output 12/20/19 12/20/19 12/20/19 06:59 14:59 22:59 Other: Weight 64.093 kg General: [non toxic], [no distress], [appears at stated age] Derm: [warm], [dry] Head: [atraumatic], [normocephalic], [symmetric] Eyes: [EOMI], [no lid lag], [anicteric sclera] Mouth: [no lip lesion], [mucus membranes moist] Cardiovascular: [S1S2 irregular], [no murmur], [positive DP pulse bilateral], Lungs: [Decreased breath sounds bilateral], [no rhonchi, no rales] , [no accessory muscle use] Abdominal: [soft], [ nontender to palpation], [no guarding], [no appreciable organomegaly] Ext: [no gross muscle atrophy], [no edema], [no contractures] Neuro: [ CN II-XI grossly intact], [no focal neuro deficits] Psych: [Alert], [oriented], [appropriate affect] Results CBC & Chem 7: 12/20/19 16:05 12/20/19 16:05 Labs: Abnormal Lab Results - Last 24 Hours (Table) 12/20/19 12/20/19 12/20/19 Range/Units 16:05 16:05 16:05 RBC 3.15 L (4.30-5.90) m/uL Hgb 8.6 L D (13.0-17.5) gm/dL Hct 27.9 L (39.0-53.0) % MCHC 30.9 L (31.0-37.0) g/dL Lymphocytes # 0.9 L (1.0-4.8) k/uL Sodium 133 L (137-145) mmol/L BUN 44 H (9-20) mg/dL Creatinine 1.34 H (0.66-1.25) mg/dL Glucose 122 H (74-99) mg/dL Calcium 11.8 H (8.4-10.2) mg/dL Troponin I 0.074 H* (0.000-0.034) ng/mL Albumin 3.2 L (3.5-5.0) g/dL Assessment and Plan Assessment: Generalized weakness Atrial fibrillation with RVR Elevated troponin Anemia Pleural effusion Elevated creatinine Hypothyroidism History of laryngeal cancer Poor appetite with low BMI of 20 Patient's generalized weakness is multifactorial (A. fib with RVR, worsening pleural effusion, worsening anemia). Patient will be placed on fall precautions and PT and OT will be consulted for medical further management. As seen on EKG. Rate of 114. We will place the patient on telemetry monitoring. Cardiology would be consulted for further management of this patient. Echocardiogram has been ordered. I will hold off on any rate control given his marginal blood pressure and hold off on anticoagulation due to his worsening anemia. Patient has elevated troponin of 0.074. This could be related to demand ischemia from atrial fibrillation. Plans to trend troponin/EKG to rule out ACS. Hemoglobin 8.6, MCV 88.4. His hemoglobin on 11/15/2019 was 10.3. Stool for occult blood is negative. We will order iron studies. Plans to repeat CBC tomorrow morning. Plans to transfuse if hemoglobin less than 7. Chest x-ray showing worsening pleural effusion. Previously evaluated and thoracentesis performed by pulmonology. We'll start Lasix 20 mg IV twice a day. Patient will be given supplemental O2 per NC to maintain O2 saturation greater than 92%. We will consult pulmonology for further management of this patient. Creatinine is elevated at 1.34. This could be a component of chronic kidney dis ease. Plans to avoid nephrotoxins and repeat BMP tomorrow morning. Patient's home dose of Synthroid will be restarted for hypothyroidism. Patient will need to follow-up with ENT Dr. Mcgill in the outpatient setting. Patient reports a poor appetite and subjective weight loss. Dietitian will be consulted. DVT prophylaxis: [SCD boots] Discussed with: [Patient and ] Anticipated discharge: [2-3 days] Anticipated discharge place: [Home] A total of [45] minutes was spent on the care of this complex patient more than 50% of the time was spent in counseling and care coordination. Patient names his Adelina decision-maker if he cant make decisions for himself. Patient would like to be NO CODE but is open to being intubated if necessary. This was discussed with his at beside.
[2019-12-20] MEDS: TAMSULOSIN 0.4 MG CAP.ER.24H PO SCH (19:59)
[2019-12-20] MEDS: FUROSEMIDE 10 MG/ML 2 ML VIAL IV SCH (19:59)
[2019-12-20] MEDS: MIRTAZAPINE 15 MG TAB PO SCH (19:59)
[2019-12-20] MEDS: METOPROLOL TARTRATE 12.5 MG TAB PO SCH (20:00)
[2019-12-20] MEDS: Acetaminophen-Codeine 300-30mg TAB PO PRN (20:00)
[2019-12-21 00:06] LABS: T4, Free (Free Thyroxine) 1.41 ng/dL (0.78-2.19)
[2019-12-21 01:19] LABS: Appearance,Urine Clear (Clear); Bilirubin,Urine Negative (Negative); Blood,Urine Negative (Negative); Color,Urine Yellow; Glucose,Urine (UA) Negative (Negative); Ketones,Urine Negative (Negative); Leukocyte Esterase,Urine Negative (Negative); Nitrite,Urine Negative (Negative); Protein,Urine Negative (Negative); Specific Gravity,Urine 1.018 (1.001-1.035); Urobilinogen,Urine <2.0 mg/dL (<2.0)
[2019-12-21 03:17] LABS: Basophils % (A) 0 %; Eosinophils % (A) 1 %; HCT 25.7 % (39.0-53.0); Lymphocytes # (A) 0.9 k/uL (1.0-4.8); Lymphocytes % (A) 14 %; MCH 27.7 pg (25.0-35.0); MCHC 30.9 g/dL (31.0-37.0); MCV 89.7 fL (80.0-100.0); Mean Platelet Volume 7.7; Monocytes # (A) 0.3 k/uL (0-1.0); Monocytes % (A) 6 %; Neutrophils # (A) 4.9 k/uL (1.3-7.7); Neutrophils % (A) 78 %; Platelet Count 259 k/uL (150-450); RBC 2.87 m/uL (4.30-5.90); RDW 14.6 % (11.5-15.5); WBC 6.2 k/uL (3.8-10.6)
[2019-12-21 03:28] LABS: Prothrombin Time 10.6 sec (9.0-12.0)
[2019-12-21 03:31] LABS: Albumin 2.9 g/dL (3.5-5.0); Calcium 11.3 mg/dL (8.4-10.2); Potassium 4.5 mmol/L (3.5-5.1); Total Bilirubin 0.4 mg/dL (0.2-1.3)
[2019-12-21] MEDS: LEVOTHYROXINE 25 MCG TAB PO SCH (06:03)
--- NOTE | 2019-12-21 08:33 | US ---
EXAMINATION TYPE: US chest DATE OF EXAM: 12/21/2019 COMPARISON: chest xray, and US. CLINICAL HISTORY: eval for pleural effusion. TECHNIQUE: Targeted ultrasound of the posterior lower bilateral hemithoraces EXAM MEASUREMENTS: Right Pleural Effusion pocket size: 5.1 cm Right skin surface to fluid distance: 3.4 cm Left Pleural Effusion pocket size: no appreciable fluid pocket Right side marked for possible thoracentesis outside the dept.Pocket is very loculated. Pulmonologists are able to review the images in the patient?s EMR. IMPRESSIONS: 1. Small right pleural effusion
[2019-12-21] MEDS ORDERED: ASPIRIN 325 MG TAB PO SCH (09:00)
[2019-12-21] MEDS: FUROSEMIDE 10 MG/ML 2 ML VIAL IV SCH ×2 (09:26→19:53)
[2019-12-21] MEDS: PANTOPRAZOLE 40 MG TABLET PO SCH (09:26)
--- NOTE | 2019-12-21 10:20 | PN ---
PROGRESS NOTE Mr. Alba is an 89-year-old male with a history of recurrent right pleural effusion, status post PleurX and multiple thoracentesis in the past, history of hypertension, history of laryngeal cancer, who presented with progressive weakness and lack of energy. His appetite has been down. He has lost about 10 pounds. He was noted to be in atrial fibrillation on presentation. He is back in sinus mechanism. He denies any prior cardiac history or any chest pain. He has dyspnea on exertion. He feels weak but he does not feel any palpitation. He has no significant peripheral edema, no clear PND, nor orthopnea. He has coarse factors remarkable size negative for smoking. He is nondiabetic no documented hyperlipidemia. MEDICATION: Include iron, Lasix 20 mg daily, levothyroxine, magnesium, Remeron, Prilosec, potassium, Flomax. REVIEW OF SYSTEMS: Persistent had dyspnea on exertion. The history of pleural effusion has been followed by Dr. Sanchez on a regular basis. His effusion were nonmalignant, GI system, no recent GI bleeding no peptic ulcer disease. He has poor appetite and weight loss, system, no dysuria or hematuria. nervous system: No stroke or seizure. PHYSICAL EXAMINATION: He is an 89-year-old male, alert, oriented, no apparent distress. Blood pressure 140/80 with a heart rate in the 90s. He was in the 130s earlier. HEAD: Normocephalic. EYES: Sclerae nonicteric. NECK: Good upstroke, no bruit. LUNGS: with decreased air exchange on the right base was dullness. HEART: Regular rate and rhythm, S1, S2. No S3. No rub with systolic murmur, no diastolic murmur. ABDOMEN: Soft, nontender. Positive bowel sounds no organomegaly. EXTREMITIES: No edema. LAB DATA: Revealed a hemoglobin of 8.0. Patient had a prior history of anemia. His troponins 0.074, 0.075 and 0.072. NT proBNP is 5,050. His cholesterol is 125 with an LDL of 73. His TSH aces is 7.7 with a free T4 of 1.4. His coronavirus PCR is negative. His EKG revealed an atrial fibrillation, rate of [address]-T wave changes. On the monitor at this time, he is in sinus mechanism. His chest x-ray revealed worsening right pleural effusion. IMPRESSION: 1. Progressive symptoms of fatigue with worsening pleural effusion and anemia. 2. Atrial fibrillation appears to be paroxysmal. 3. Elevation of troponin does not reflect an acute coronary syndrome, could be worsened by the anemia and the atrial fibrillation. 4. Recurrent pleural effusion. 5. Hypothyroidism. RECOMMENDATION: From the cardiac standpoint, I will obtain echocardiogram with Doppler. I will increase the dose of his beta nicolás. Will hold on anticoagulation pending the day if he undergoes further procedure. Depending on his progress, further recommendation will be made. Thank you for this consult. Will follow with you. MMODL / IJN: [id number] /
[2019-12-21] MEDS: METOPROLOL TARTRATE 12.5 MG TAB PO SCH (11:02)
--- NOTE | 2019-12-21 11:46 | ECHOF ---
Referral Reason:SOB MEASUREMENTS -------- HEIGHT: 177.8 cm WEIGHT: 68.5 kg BP: 140/83 RVIDd: 3.1 cm (< 3.3) IVSd: 1.5 cm (0.6 - 1.1) LVIDd: 4.6 cm (3.9 - 5.3) LVPWd: 1.4 cm (0.6 - 1.1) IVSs: 1.9 cm LVIDs: 3.0 cm LVPWs: 2.0 cm LA Diam: 3.5 cm (2.7 - 3.8) Ao Diam: 3.5 cm (2.0 - 3.7) AV Cusp: 2.3 cm (1.5 - 2.6) MV EXCURSION: 15.944 mm (> 18.000) MV EF SLOPE: 81 mm/s (70 - 150) EPSS: 0.9 cm MV E Gil: 0.62 m/s MV DecT: 311 ms MV A Gil: 0.79 m/s MV E/A Ratio: 0.78 FINDINGS -------- This was a technically difficult study with suboptimal apical views. The left ventricular size is normal. There is moderate concentric left ventricular hypertrophy. O verall left ventricular systolic function is mild-moderately impaired with, an EF between 40 - 45 %. Apical septum LV wall motion is hypokinetic. The right ventricle is normal in size. The left atrial size is normal. The right atrium is normal in size. 5.0mg of Lumason was utilized for enhancement of images Interatrial and interventricular septum intact. There is mild aortic valve sclerosis. Trace amount of aortic regurgitation. The mitral valve is normal. The tricuspid valve was not well visualized. The pulmonic valve was not well visualized. The aortic root size is normal. Normal inferior vena cava with normal inspiratory collapse consistent with estimated right atrial pre ssure of 5 mmHg. There is no pericardial effusion. CONCLUSIONS -------- 1. This was a technically difficult study with suboptimal apical views. 2. The left ventricular size is normal. 3. There is moderate concentric left ventricular hypertrophy. 4. Overall left ventricular systolic function is mild-moderately impaired with, an EF between 40 - 45 %. 5. Apical septum LV wall motion is hypokinetic. 6. The right ventricle is normal in size. 7. The left atrial size is normal. 8. The right atrium is normal in size. 9. 5.0mg of Lumason was utilized for enhancement of images 10. Interatrial and interventricular septum intact. 11. There is mild aortic valve sclerosis. 12. Trace amount of aortic regurgitation. 13. The mitral valve is normal. 14. The tricuspid valve was not well visualized. 15. The pulmonic valve was not well visualized. 16. The aortic root size is normal. 17. Normal inferior vena cava with normal inspiratory collapse consistent with estimated right atrial pressure of 5 mmHg. 18. There is no pericardial effusion. [employer]YWALL [employer]CH[employer]IC: Mirtha Sinclair RDCS
[2019-12-21] MEDS: ASPIRIN 81 MG PO SCH (12:13)
[2019-12-21] MEDS: METOPROLOL TARTRATE 25 MG TAB PO SCH ×2 (12:13→19:52)
[2019-12-21 12:33] LABS: % Iron Saturation 13.17 (15.00-50.00); Ferritin 433.8 ng/mL (22.0-322.0)
--- NOTE | 2019-12-21 13:43 | P.CNPUL ---
History of Present Illness Consult date: 12/21/19 Requesting physician: Braulio Deleon Reason for consult: pleural effusion Chief complaint: Weakness, hypertension, chronic pleural effusion History of present illness: This is a 89-year-old patient of Dr. Ascencio with past medical history of laryngeal cancer post chemoradiation, hypertension, hyperlipidemia, osteoarthritis, previous history of pulmonary embolism, coronary artery disease, chronic anemia, former smoker, diverticulosis, that follows with Dr. Zamora and Dr. Sanchez in the pulmonary clinic, and had previous thoracentesis for right- sided pleural effusion. The sampling was negative for microbial growth and negative cytologically. This was on 01/21/2019. Patient then developed recurrent right-sided pleural effusion and had to have a repeat thoracentesis on 02/04/2019 and again cultures and cytology were negative however the fluid was clearly exudative with an elevated LDH and elevated protein. He had another repeat thoracentesis in February 2019 by interventional radiology, and the fluid was not sent for analysis. Bronchoscopy and multiple biopsies and brush of the right lower lobe was done by Dr. Cain on February 26, with bronchial lavage was negative, and biopsies and brush cytologies were negative. Patient was then referred to Dr. Tucker for recurrent right-sided pleural effusion and Pleurx catheter was placed on 03/10/2019, and the pleural fluid drainage had significantly slowed down and was eventually removed. 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 His last CT scan of the chest was done in January 2019 showing some pleural plaquing with the possibility of previous exposure to asbestos. Patient did refuse a PET scan ordered a follow-up visit on 08/31/2019, because he did not feel it was necessary. The plan of care was discussed with the patient in the office, and related to his multiple comorbidities, poor lung function, patient would likely be a poor candidate for any treatment and patient when his symptomatic relief from his shortness of breath. On 2019 patient presents to the emergenc y department with complaints of weakness, but has been worsening over last 3 months. He has been having increasingly hard time walking secondary to his legs being extremely weak, and patient hypotensive with blood pressure in the 80s. Denies any fever, denied any chills or chest pains, no injuries, no nausea vomiting or diarrhea. As been experiencing worsening shortness of breath decreased appetite and generalized weakness. His been increasingly sleeping more through the day. His chest x-ray showed moderately sized right-sided pleural effusion and consolidation of the right lower lobe which is unchanged from his previous chest x-ray from August 2019. Increased pulmonary vascularity, new left-sided pleural effusion. Ultrasound the chest showed a 5.1 cm right pleural effusion pocket and no appreciable fluid pocket on the left. EKG showed A. fib with a rate of 114 on presentation. Room air pulse ox is 96%. Labs showed a white blood cell count 7.7, hemoglobin of 8.6, coagulation profile was within normal limits, sodium was 133, Kiley Lashway's were within normal limits, UN of 44, creatinine is 1.34, last normal lactic acid was within normal limits, troponins were 0.074, 0.075, and 0.072, proBNP was 5050, TSH was 7.72, urinalysis was negative for any evidence of infection, COVID 19 PCR was negative. He was given 500 mL an IV fluid bolus, blood pressure has improved, kilo voss was also started on IV Lasix at 20 mg every 12 hours, today she denies any acute distress, is on room air with a pulse ox of 96%. Review of Systems All systems: negative Constitutional: Reports anorexia, Reports fatigue, Reports lethargy, Reports poor appetite, Reports weakness, Denies chills, Denies fever Eyes: denies blurred vision, denies pain Ears, nose, mouth and throat: Denies headache, Denies sore throat Cardiovascular: Denies chest pain, Denies shortness of breath Respiratory: Reports dyspnea, Denies cough Gastrointestinal: Denies abdominal pain, Denies diarrhea, Denies nausea, Denies vomiting Musculoskeletal: Denies myalgias Integumentary: Denies pruritus, Denies rash Neurological: Denies numbness, Denies weakness Psychiatric: Denies anxiety, Denies depression Endocrine: Denies fatigue, Denies weight change Past Medical History Past Medical History: Cancer, GERD/Reflux, Hyperlipidemia, Hypertension, Osteoarthritis (OA), Pulmonary Embolus (PE), Thyroid Disorder Additional Past Medical History / Comment(s): Laryngeal cancer RADIATION CHEMOTHERAPY completed. Hypothyroidism. BPH. GERD. Coronary artery disease. Anemia. Gout. Diverticulosis. History of Any Multi-Drug Resistant Organisms: None Reported Past Surgical History: Orthopedic Surgery, Tonsillectomy Additional Past Surgical History / Comment(s): RIGHT HIP REPLACEMENT. trach Past Anesthesia/Blood Transfusion Reactions: No Reported Reaction Additional Past Anesthesia/Blood Transfusion Reaction / Comment(s): HAD 2 UNITS DURING CHEMO AT [facility] Past Psychological History: No Psychological Hx Reported Smoking Status: Former smoker Past Alcohol Use History: Daily Past Drug Use History: None Reported - Past Family History Father Family Medical History: Cancer Additional Family Medical History / Comment(s): KIDNEY CANCER Mother Family Medical History: Myocardial Infarction ([place]), Respiratory Disorder Medications and Allergies Home Medications Medication Instructions Recorded Confirmed Type Multivitamin/Iron/Folic Acid 1 tab PO DAILY@1200 08/25/17 12/20/19 History [Centrum Complete Multivit Tab] Omeprazole [PriLOSEC] 20 mg PO DAILY@1200 08/25/17 12/20/19 History Tamsulosin HCl [Flomax] 0.4 mg PO HS 08/25/17 12/20/19 History Ferrous Sulfate [Iron (65 MG 325 mg PO DAILY 02/25/19 12/20/19 History Elemental)] Furosemide [Lasix] 20 mg PO DAILY 03/02/19 12/20/19 History Potassium Chloride [Klor-Con 10] 10 meq PO DAILY 03/02/19 12/20/19 History Acetaminophen-Codeine 300-30mg 1 tab PO HS 12/20/19 12/20/19 History [Tylenol w/codeine #3] Ibuprofen [Motrin Ib] 200 - 800 mg PO BID PRN 12/20/19 12/20/19 History Levothyroxine Sodium [Synthroid] 25 mcg PO DAILY 12/20/19 12/20/19 History Magnesium Citrate 250mg 250 mg PO DAILY 12/20/19 12/20/19 History Mirtazapine [Remeron] 7.5 mg PO HS 12/20/19 12/20/19 History Sennosides [Senokot] 17.2 mg PO HS 12/20/19 12/20/19 History Stool Softener 250mg 250 mg PO HS 12/20/19 12/20/19 History Allergies Allergy/AdvReac Type Severity Reaction Status Date / Time No Known Allergies Allergy Verified 12/20/19 16:55 Physical Exam Vitals: Vital Signs Temp Pulse Pulse Resp BP BP Pulse Ox 12/21/19 08:00 98 F 92 22 132/70 96 06/09/20 04:00 98.6 F 111 H 18 140/83 95 12/21/19 00:00 120 H 18 101/69 94 L 12/20/19 18:55 98.4 F 120 H 19 149/95 92 L 12/20/19 17:47 110 H 20 126/83 97 12/20/19 17:33 97.7 F 130 H 18 118/82 93 L 12/20/19 17:11 110 H 20 126/83 97 12/20/19 16:11 20 12/20/19 15:11 20 12/20/19 15:08 97.5 F L 62 18 111/68 92 L Intake and Output 12/20/19 12/21/19 12/21/19 22:59 06:59 14:59 Output Total 100 225 Balance -100 -225 Output: Urine 100 225 Other: # Voids 1 1 Weight 64.093 kg 68.5 kg GENERAL EXAM: Alert, very pleasant, 89-year-old white male, resting comfortably in bed, on room air pulse ox of 96%, comfortable in no apparent distress. HEAD: Normocephalic/atraumatic. EYES: Normal reaction of pupils, equal size. Conjunctiva pink, sclera white. NOSE: Clear with pink turbinates. THROAT: No erythema or exudates. NECK: No masses, no JVD, no thyroid enlargement, no adenopathy. CHEST: No chest wall deformity. Symmetrical expansion. LUNGS: Equal air entry with diminished breath sounds over right base, no rhonchi, no wheezing CVS: Regular rate and rhythm, normal S1 and S2, no gallops, no murmurs, no rubs ABDOMEN: Soft, nontender. No hepatosplenomegaly, normal bowel sounds, no guard ing or rigidity. EXTREMITIES: No clubbing, no edema, no cyanosis, 2+ pulses and upper and lower extremities. MUSCULOSKELETAL: Muscle strength and tone normal. SPINE: No scoliosis or deformity SKIN: No rashes CENTRAL NERVOUS SYSTEM: Alert and oriented -3. No focal deficits, tone is normal in all 4 extremities. PSYCHIATRIC: Alert and oriented -3. Appropriate affect. Intact judgment and insight. Results - Laboratory Findings CBC and BMP: 12/21/19 03:06 12/21/19 03:06 PT/INR, D-dimer PT 10.6 sec (9.0-12.0) 12/21/19 03:06 INR 1.0 (<1.2) 12/21/19 03:06 Abnormal lab findings: Abnormal Labs 12/20/19 12/20/19 12/20/19 16:05 16:05 16:05 RBC 3.15 L Hgb 8.6 L D Hct 27.9 L MCHC 30.9 L Lymphocytes # 0.9 L Sodium 133 L BUN 44 H Creatinine 1.34 H Glucose 122 H Calcium 11.8 H Iron TIBC % Saturation Ferritin Troponin I 0.074 H* Total Protein Albumin 3.2 L HDL Cholesterol TSH 12/20/19 12/20/19 12/21/19 22:29 22:29 03:06 RBC Hgb Hct MCHC Lymphocytes # Sodium BUN Creatinine Glucose Calcium Iron TIBC % Saturation Ferritin Troponin I 0.075 H* 0.072 H* Total Protein Albumin HDL Cholesterol TSH 7.720 H 12/21/19 12/21/19 03:06 03:06 RBC 2.87 L Hgb 8.0 L Hct 25.7 L MCHC 30.9 L Lymphocytes # 0.9 L Sodium 132 L BUN 41 H Creatinine Glucose Calcium 11.3 H Iron 27 L TIBC 205 L % Saturation 13.17 L Ferritin 433.8 H Troponin I Total Protein 6.0 L Albumin 2.9 L HDL Cholesterol 38 L TSH - Diagnostic Findings Chest x-ray: report reviewed, image reviewed Additional studies: EKG, echocardiogram reviewed Assessment and Plan Plan: Assessment: #1. Chronic and recurrent right-sided pleural effusion, status post thoracentesis 3, and Pleurx catheter placement and subsequent removal, with cytologies negative 2, and no growth on the pleural fluid cultures. Previous bronchoscopy with BAL and biopsies were negative. Chest x-ray on presentation shows stable right sided pleural effusion and small left pleural effusion. Ultrasound of the chest showed 5.1 cm pocket on the right and no sizable pocket on the left. Patient is on room air, denies any distress #2. Paroxysmal atrial fibrillation, patient presented with A. fib mildly rapid ventricular rate of 112 BPM on presentation, currently back in sinus rhythm #3. Advanced COPD, with FEV1 0.9 L or 35% of predicted, stage III COPD #4. History of laryngeal cancer status post chemoradiation #5. History of coronary arteriosclerosis #6. Hypertension #7. Hyperlipidemia #8. Osteoarthritis #9. Diverticulosis #10. Benign prostatic hyperplasia #11. Chronic anemia, unspecified #12. Elevated troponin #13. 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 Echocardiogram results have been reviewed. Patient is back in sinus, hemodynamically patient is stable, vital signs are stable, no fever or chills, any medical treatment, will follow I performed a history & physical examination of the patient and discussed their management with my nurse practitioner, Parris Grimes. I reviewed the nurse pr actitioner's note and agree with the documented findings and plan of care. Lung sounds are positive for diminished breath sounds on the right side. The findings and the impression was discussed with the patient. I attest to the documentation by the nurse practitioner. Time with Patient: Greater than 30
[2019-12-21 14:28] VITALS: BMI 19.8
--- NOTE | 2019-12-21 14:34 | P.PN ---
Subjective Progress Note Date: 12/21/19 Principal diagnosis: Weakness Patient was seen and examined. No acute events overnight. Patient reports continued weakness, slightly improved since yesterday. Started working with physical therapy today. He denies any chest pain, shortness of breath or palpitations. No nausea or vomiting. No fever or chills. Objective - Vital Signs Vital signs: Vital Signs Temp 98 F 12/21/19 08:00 Pulse 98 12/21/19 12:00 Resp 22 12/21/19 12:00 BP 147/72 12/21/19 12:00 Pulse Ox 94 L 12/21/19 12:00 Intake & Output 12/20/19 12/21/19 12/21/19 18:59 06:59 18:59 Output Total 100 225 Balance -100 -225 Weight 64.093 kg 68.5 kg 63.412 kg Output: Urine 100 225 Other: # Voids 1 1 # Bowel Movements 1 - Exam General: [non toxic], [no distress], [appears at stated age] Derm: [warm], [dry] Head: [atraumatic], [normocephalic], [symmetric] Eyes: [EOMI], [no lid lag], [anicteric sclera] Mouth: [no lip lesion], [mucus membranes moist] Cardiovascular: [S1S2 irregular], [no murmur], [positive DP pulse bilateral], Lungs: [Decreased breath sounds bilateral], [no rhonchi, no rales] , [no accessory muscle use] Abdominal: [soft], [ nontender to palpation], [no guarding], [no appreciable organomegaly] Ext: [no gross muscle atrophy], [no edema], [no contractures] Neuro: [no focal neuro deficits] Psych: [Alert], [oriented], [appropriate affect] - Labs CBC & Chem 7: 12/21/19 03:06 12/21/19 03:06 Labs: Abnormal Lab Results - Last 24 Hours (Table) 12/20/19 12/20/19 12/20/19 Range/Units 16:05 16:05 16:05 RBC 3.15 L (4.30-5.90) m/uL Hgb 8.6 L D (13.0-17.5) gm/dL Hct 27.9 L (39.0-53.0) % MCHC 30.9 L (31.0-37.0) g/dL Lymphocytes # 0.9 L (1.0-4.8) k/uL Sodium 133 L (137-145) mmol/L BUN 44 H (9-20) mg/dL Creatinine 1.34 H (0.66-1.25) mg/dL Glucose 122 H (74-99) mg/dL Calcium 11.8 H (8.4-10.2) mg/dL Iron (65-175) ug/dL TIBC (228-460) ug/dL % Saturation (15.00-50.00) Ferritin (22.0-322.0) ng/mL Troponin I 0.074 H* (0.000-0.034) ng/mL Total Protein (6.3-8.2) g/dL Albumin 3.2 L (3.5-5.0) g/dL HDL Cholesterol (40-60) mg/dL TSH (0.465-4.680) mIU/L 12/20/19 12/20/19 12/21/19 Range/Units 22:29 22:29 03:06 RBC (4.30-5.90) m/uL Hgb (13.0-17.5) gm/dL Hct (39.0-53.0) % MCHC (31.0-37.0) g/dL Lymphocytes # (1.0-4.8) k/uL Sodium (137-145) mmol/L BUN (9-20) mg/dL Creatinine (0.66-1.25) mg/dL Glucose (74-99) mg/dL Calcium (8.4-10.2) mg/dL Iron (65-175) ug/dL TIBC (228-460) ug/dL % Saturation (15.00-50.00) Ferritin (22.0-322.0) ng/mL Troponin I 0.075 H* 0.072 H* (0.000-0.034) ng/mL Total Protein (6.3-8.2) g/dL Albumin (3.5-5.0) g/dL HDL Cholesterol (40-60) mg/dL TSH 7.720 H (0.465-4.680) mIU/L 12/21/19 12/21/19 Range/Units 03:06 03:06 RBC 2.87 L (4.30-5.90) m/uL Hgb 8.0 L (13.0-17.5) gm/dL Hct 25.7 L (39.0-53.0) % MCHC 30.9 L (31.0-37.0) g/dL Lymphocytes # 0.9 L (1.0-4.8) k/uL Sodium 132 L (137-145) mmol/L BUN 41 H (9-20) mg/dL Creatinine (0.66-1.25) mg/dL Glucose (74-99) mg/dL Calcium 11.3 H (8.4-10.2) mg/dL Iron 27 L (65-175) ug/dL TIBC 205 L (228-460) ug/dL % Saturation 13.17 L (15.00-50.00) Ferritin 433.8 H (22.0-322.0) ng/mL Troponin I (0.000-0.034) ng/mL Total Protein 6.0 L (6.3-8.2) g/dL Albumin 2.9 L (3.5-5.0) g/dL HDL Cholesterol 38 L (40-60) mg/dL TSH (0.465-4.680) mIU/L Assessment and Plan Assessment: Generalized weakness Atrial fibrillation with RVR Elevated troponin Anemia Pleural effusion Subclinical Hypothyroidism History of laryngeal cancer Poor appetite with low BMI of 20 Patient's generalized weakness is multifactorial (A. fib with RVR, worsening pleural effusion, worsening anemia). Patient will be placed on fall precautions and PT and OT will be consulted for medical further management. As seen on EKG. Rate of 114. We will place the patient on telemetry monitoring. Cardiology would be consulted for further management of this patient. Echocardiogram shows EF 40-45% with hypokinetic wall motion and moderate concentric LVH. He has been started on metoprolol by mouth by cardiology. Plans for possible anticoagulation if no thoracentesis by pulmonology. Patient has elevated troponin of 0.074, 0.075, 0.072. This could be related to demand ischemia from atrial fibrillation. ACS ruled out. Hemoglobin 8. His hemoglobin on 11/15/2019 was 10.3. Stool for occult blood is negative. Iron studies show iron deficiency and anemia of chronic disease. Plans to repeat CBC tomorrow morning. Plans to transfuse if hemoglobin less than 7. Start IV iron today. Chest x-ray showing worsening pleural effusion. Previously evaluated and thoracentesis performed by pulmonology. We'll continue Lasix 20 mg IV twice a day. Patient will be given supplemental O2 per NC to maintain O2 saturation greater than 92%. Pulmonology has evaluated the patient and there is no thoracentesis is planned at this time. Patient's home dose of Synthroid will be restarted for hypothyroidism. Patient will need repeat TSH and free T4 in 6 weeks. Patient will need to follow-up with ENT Dr. Mcgill in the outpatient setting. Patient reports a poor appetite and subjective weight loss. Dietitian will be consulted. [Patient admitted for generalized weakness, continues to work with PT and OT. Rate controlling medications added by cardiology, monitor vitals. Hemoglobin downtrending started on IV iron, repeat CBC tomorrow. Plans for possible DC tomorrow home with home PT versus [facility] if patient continues to show improvement.]
[2019-12-21] MEDS ORDERED: SODIUM FERRIC GLUCONAT-SUCROSE 125 MG in SODIUM CHLORIDE 0.9% 100 ML IVPB SCH (15:00)
[2019-12-21] MEDS: TAMSULOSIN 0.4 MG CAP.ER.24H PO SCH (19:52)
[2019-12-21] MEDS: Acetaminophen-Codeine 300-30mg TAB PO PRN (19:52)
[2019-12-21] MEDS: MIRTAZAPINE 15 MG TAB PO SCH (19:52)
[2019-12-21] MEDS ORDERED: METOPROLOL TARTRATE 25 MG TAB PO SCH (21:00)
[2019-12-22] MEDS: LEVOTHYROXINE 25 MCG TAB PO SCH (05:25)
[2019-12-22 07:46] LABS: Calcium 11.3 mg/dL (8.4-10.2); Potassium 3.7 mmol/L (3.5-5.1)
[2019-12-22 08:42] LABS: Basophils % (A) 0 %; Eosinophils # (A) 0.1 k/uL (0-0.7); Eosinophils % (A) 1 %; HCT 25.1 % (39.0-53.0); HGB 8.1 gm/dL (13.0-17.5); Hypochromasia Slight; Lymphocytes % (A) 15 %; MCH 29.3 pg (25.0-35.0); MCHC 32.4 g/dL (31.0-37.0); MCV 90.5 fL (80.0-100.0); Monocytes # (A) 0.5 k/uL (0-1.0); Monocytes % (A) 7 %; Neutrophils # (A) 5.1 k/uL (1.3-7.7); Neutrophils % (A) 75 %; Platelet Count 300 k/uL (150-450); RBC 2.78 m/uL (4.30-5.90); RDW 14.3 % (11.5-15.5); WBC 6.7 k/uL (3.8-10.6)
[2019-12-22] MEDS ORDERED: ASPIRIN 81 MG PO SCH ×2 (09:00→11:06)
[2019-12-22] MEDS: ASPIRIN 81 MG PO SCH (09:14)
[2019-12-22] MEDS: FUROSEMIDE 10 MG/ML 2 ML VIAL IV SCH (09:14)
[2019-12-22] MEDS: PANTOPRAZOLE 40 MG TABLET PO SCH (09:14)
[2019-12-22] MEDS: METOPROLOL TARTRATE 25 MG TAB PO SCH (09:14)
[2019-12-22 09:19] VITALS: TEMP 98.1
[2019-12-22] MEDS: Acetaminophen-Codeine 300-30mg TAB PO PRN (10:25)
--- NOTE | 2019-12-22 11:29 | CDI ---
Documentation Clarification Form Date: 12/22/2019 11:18:03 AM From: Magdalene Garcia RN, CCDS Admit Date: 12/20/2019 05:19:00 PM Patient Name: Drake Alba Visit Number: [id number] ATTENTION: The Clinical Documentation Specialists (CDI) and [facility] Coding Staff appreciate your assistance in clarifying documentation. Please respond to the clarification below the line at the bottom and electronically sign. The CDI & [facility] Coding staff will review the response and follow-up if needed. Please note: Queries are made part of the Legal Health Record. If you have any questions, please contact the author of this message via ITS. Dr. Braulio Deleon The patient has been note to have a low BMI with weakness and a poor appetite. Please provide clinical significance History/Risk Factors: GERD, Laryngeal CA, Hypothyroid, Anemia, Diverticulosis Clinical Indicators: 12/19 H&P: "generalized weakness, anemia, elevated Creatinine, hx of laryngeal ca, poor appetite with low BMI of 20 12/19-12/21 Labs: HGB: 8.6/8/8.1, NA+ 133/132/130, BUN 44/41/39, Creatinine 1.34/1.25/1.2, Total Protein 6.5/6, Albumin 3.2/2.9 Current BMI: 19.6 Insufficient energy intake: Poor appetite per MD Documentation Weight Loss: subjective per pt Decreased hand orthotist strength: generalized weakness Treatment: Dietary Consult: Completed 12/20 with supplementation recommendations Supplements: Ensure Enlive TID and [place] instant breakfast TID 12/19 500 cc 0.9% NS IVF Bolus Lab monitoring: AM Daily In your professional opinion, can you please clarify if these findings signify one of the following conditions? Mild Protein-Calorie Malnutrition Moderate Protein-Calorie Malnutrition Severe Protein-Calorie Malnutrition Other condition, please specify Unable to determine (Last Revision: January 2019) moderate ___ ADAMD
[2019-12-22 11:38] VITALS: BP 106/65; PULSE 80; RESP 16
--- NOTE | 2019-12-22 11:43 | CDI ---
Documentation Clarification Form Date: 12/22/2019 11:30:50 AM From: Magdalene Garcia RN, CCDS Admit Date: 12/20/2019 05:19:00 PM Patient Name: Drake Alba Visit Number: [id number] ATTENTION: The Clinical Documentation Specialists (CDI) and [facility] Coding Staff appreciate your assistance in clarifying documentation. Please respond to the clarification below the line at the bottom and electronically sign. The CDI & [facility] Coding staff will review the response and follow-up if needed. Please note: Queries are made part of the Legal Health Record. If you have any questions, please contact the author of this message via ITS. Dr. Braulio Deleon CKD is documented in the H&P and requires further specificity History/Risk Factors: HTN, BPH, Cad, Anemia 11/15/2019 Patients Historical BUN/CR/GFR: 37/1.4/44.9 Clinical Indicators: 12/19 H&P: "This could be a component of chronic kidney disease." 12/19 ED Note: "Lactic acid normal, kidney function is at baseline." Current BUN: 44/41/39 CR: 1.34/1.25/1.2 GFR: 48/52/54 Treatment: 12/20 500 cc 0.9% NS IVF Bolus no continuous IVF following In order to capture the severity of condition, please clarify the stage of the CKD, if known: CKD Stage 1 (GFR > 90) CKD Stage 2 (GFR 60-89) CKD Stage 3 (GFR 30-59) CKD Stage 4 (GFR 15-29) CKD Stage 5 (GFR <15) ESRD Other, please specificity Unable to determine (Last Revision: August 2019) likely PAOLA and not CKD MTDD
--- NOTE | 2019-12-22 12:17 | P.PN ---
Subjective Progress Note Date: 12/22/19 Principal diagnosis: Weakness, hypotension, chronic pleural effusion This is a 89-year-old patient of Dr. Ascencio with past medical history of laryngeal cancer post chemoradiation, hypertension, hyperlipidemia, osteoarthritis, previous history of pulmonary embolism, coronary artery disease, chronic anemia, former smoker, diverticulosis, that follows with Dr. Zamora and Dr. Sanchez in the pulmonary clinic, and had previous thoracentesis for right- sided pleural effusion. The sampling was negative for microbial growth and negative cytologically. This was on 01/21/2019. Patient then developed recurrent right-sided pleural effusion and had to have a repeat thoracentesis on 02/04/2019 and again cultures and cytology were negative however the fluid was clearly exudative with an elevated LDH and elevated protein. He had another repeat thoracentesis in February 2019 by interventional radiology, and the fluid was not sent for analysis. Bronchoscopy and multiple biopsies and brush of the right lower lobe was done by Dr. Cain on February 26, with bronchial lavage was negative, and biopsies and brush cytologies were negative. Patient was then referred to Dr. Tucker for recurrent right-sided pleural effusion and Pleurx catheter was placed on 03/10/2019, and the pleural fluid drainage had significantly slowed down and was eventually removed. 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 His last CT scan of the chest was done in January 2019 showing some pleural plaquing with the possibility of previous exposure to asbestos. Patient did refuse a PET scan ordered a follow-up visit on 08/31/2019, because he did not feel it was nec essary. The plan of care was discussed with the patient in the office, and related to his multiple comorbidities, poor lung function, patient would likely be a poor candidate for any treatment and patient when his symptomatic relief from his shortness of breath. On 2019 patient presents to the emergency department with complaints of weakness, but has been worsening over last 3 months. He has been having increasingly hard time walking secondary to his legs being extremely weak, and patient hypotensive with blood pressure in the 80s. Denies any fever, denied any chills or chest pains, no injuries, no nausea vomiting or diarrhea. As been experiencing worsening shortness of breath decreased appetite and generalized weakness. His been increasingly sleeping more through the day. His chest x-ray showed moderately sized right-sided pleural effusion and consolidation of the right lower lobe which is unchanged from his previous chest x-ray from August 2019. Increased pulmonary vascularity, new left-sided pleural effusion. Ultrasound the chest showed a 5.1 cm right pleural effusion pocket and no appreciable fluid pocket on the left. EKG showed A. fib with a rate of 114 on presentation. Room air pulse ox is 96%. Labs showed a white blood cell count 7.7, hemoglobin of 8.6, coagulation profile was within normal limits, sodium was 133, Kiley Lashway's were within normal limits, UN of 44, creatinine is 1.34, last normal lactic acid was within normal limits, troponins were 0.074, 0.075, and 0.072, proBNP was 5050, TSH was 7.72, urinalysis was negative for any evidence of infection, COVID 19 PCR was negative. He was given 500 mL an IV fluid bolus, blood pressure has improved, he was also started on IV Lasix at 20 mg every 12 hours, today she denies any acute distress, is on room air with a pulse ox of 96%. On 12/22/2019 patient seen in follow-up on a general medical floor. He is awake and alert, he sitting up in the chair, in no acute distress. Room air pulse ox is 94-95%, no complaints of chest pain, no cough or congestion, no fever or chills. Vital signs are stable. Today's labs have been reviewed, white blood cell is 6.7, hemoglobin is 8.1 patient does have chronic anemia, and he is getting iron transfusions, sodium is 1:30, potassium 3.7, chloride is 97, CO2 is 28, BUN is 39, creatinine is 1.2. Troponins topped out at 0.075 without significant rise or fall. he has denied any chest pain, urinalysis was negative, coronavirus PCR was negative Objective - Vital Signs Vital signs: Vital Signs Temp 98.1 F 12/22/19 09:15 Pulse 80 12/22/19 11:20 Resp 16 12/22/19 11:20 BP 106/65 12/22/19 11:20 Pulse Ox 94 L 12/22/19 11:20 Intake & Output 12/21/19 12/22/19 12/22/19 18:59 06:59 18:59 Intake Total 420 118 Output Total 225 450 150 Balance 195 -450 -32 Weight 63.412 kg 62.7 kg Intake: Oral 420 118 Output: Urine 225 450 150 Other: # Voids 1 1 # Bowel Movements 1 - Exam GENERAL EXAM: Alert, very pleasant, 89-year-old white male on room air, with a pulse ox of 95%, comfortable in no apparent distress. HEAD: Normocephalic/atraumatic. EYES: Normal reaction of pupils, equal size. Conjunctiva pink, sclera white. NOSE: Clear with pink turbinates. THROAT: No erythema or exudates. NECK: No masses, no JVD, no thyroid enlargement, no adenopathy. CHEST: No chest wall deformity. Symmetrical expansion. LUNGS: Equal air entry with no crackles, wheeze, rhonchi or dullness. CVS: Regular rate and rhythm, normal S1 and S2, no gallops, no murmurs, no rubs ABDOMEN: Soft, nontender. No hepatosplenomegaly, normal bowel sounds, no guarding or rigidity. EXTREMITIES: No clubbing, no edema, no cyanosis, 2+ pulses and upper and lower extremities. MUSCULOSKELETAL: Muscle strength and tone normal. SPINE: No scoliosis or deformity SKIN: No rashes CENTRAL NERVOUS SYSTEM: Alert and oriented -3. No focal deficits, tone is normal in all 4 extremities. PSYCHIATRIC: Alert and oriented -3. Appropriate affect. Intact judgment and insight. - Labs CBC & Chem 7: 12/22/19 06:32 12/22/19 06:32 Labs: Abnormal Lab Results - Last 24 Hours (Table) 12/21/19 12/22/19 12/22/19 Range/Units 03:06 06:32 06:32 RBC 2.78 L (4.30-5.90) m/uL Hgb 8.1 L (13.0-17.5) gm/dL Hct 25.1 L (39.0-53.0) % Sodium 130 L (137-145) mmol/L Chloride 97 L (98-107) mmol/L BUN 39 H (9-20) mg/dL Calcium 11.3 H (8.4-10.2) mg/dL Iron 27 L (65-175) ug/dL TIBC 205 L (228-460) ug/dL % Saturation 13.17 L (15.00-50.00) Ferritin 433.8 H (22.0-322.0) ng/mL Assessment and Plan Plan: Assessment: #1. Chronic and recurrent right-sided pleural effusion, status post thoracentesis 3, and Pleurx catheter placement and subsequent removal, with cytologies negative 2, and no growth on the pleural fluid cultures. Previous bronchoscopy with BAL and biopsies were negative. Chest x-ray on presentation shows stable right sided pleural effusion and small left pleural effusion. Ultrasound of the chest showed 5.1 cm pocket on the right and no sizable pocket on the left. Patient is on room air, denies any distress #2. Paroxysmal atrial fibrillation, patient presented with A. fib mildly rapid ventricular rate of 112 BPM on presentation, currently back in sinus rhythm #3. Advanced COPD, with FEV1 0.9 L or 35% of predicted, stage III COPD #4. History of laryngeal cancer status post chemoradiation #5. History of coronary arteriosclerosis #6. Hypertension #7. Hyperlipidemia #8. Osteoarthritis #9. Diverticulosis #10. Benign prostatic hyperplasia #11. Chronic anemia, unspecified #12. Elevated troponin #13. 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 Patient is on room air, from pulmonary perspective patient can be considered for discharge home if cleared by cardiology, and he can follow up with Dr. Sanchez in the office in one or 2 weeks I performed a history & physical examination of the patient and discussed their management with my nurse practitioner, Parris Grimes. I reviewed the nurse practitioner's note and agree with the documented findings and plan of care. Lung sounds are positive for diminished breath sounds on the right side. The findings and the impression was discussed with the patient. I attest to the documentation by the nurse practitioner. Time with Patient: Less than 30
--- NOTE | 2019-12-22 14:14 | P.PN ---
Subjective Progress Note Date: 12/22/19 This is a pleasant 89-year-old gentleman with history of recurrent right pleural effusion, status post PleurX and multiple thoracentesis in the past, hypertension, laryngeal cancer who presented with progressive weakness and lack of energy. His appetite has been down he's lost about 10 pounds. On present ation he was noted to be in atrial fibrillation. He is currently maintaining sinus mechanism. Denies any cardiac history or any chest discomfort. He does have dyspnea on exertion which is chronic. He feels weak but does not complain of any palpitations. He has no significant peripheral edema, no PND or orthopnea. Patient's family be anemic on admission with a hemoglobin today of 8.1, hemoglobin was 10.3 on November 14 of this year but has been low in the past. ultrasound of the chest was done and patient has been evaluated by pulmonary with no plans for thoracentesis. Does have right-sided pleural effusion which is chronic in nature and not significantly changed since August 2019. [place] rdiogram yesterday showed mild to moderately impaired LV systolic function with ejection fraction between 40-45%, apical septal wall hypokinesis, moderate LVH, mild aortic valve sclerosis and trace AR. Objective - Vital Signs Vital signs: Vital Signs Temp 98.1 F 12/22/19 09:15 Pulse 80 12/22/19 11:20 Resp 16 12/22/19 11:20 BP 106/65 12/22/19 11:20 Pulse Ox 94 L 12/22/19 11:20 Intake & Output 12/21/19 12/22/19 12/22/19 18:59 06:59 18:59 Intake Total 420 118 Output Total 225 450 150 Balance 195 -450 -32 Weight 63.412 kg 62.7 kg Intake: Oral 420 118 Output: Urine 225 450 150 Other: # Voids 1 1 # Bowel Movements 1 - Exam PHYSICAL EXAMINATION: HEENT: Head is atraumatic, normocephalic. Pupils equal, round. Neck is supple. There is no elevated jugular venous pressure. HEART EXAMINATION: Heart sounds regular, S1 and S2 normal. No murmur or gallop heard. CHEST EXAMINATION: Lungs reveal diminished air entry and faint crackles right base. No chest wall tenderness is noted on palpation or with deep breathing. ABDOMEN: Soft, nontender. Bowel sounds are heard. No organomegaly noted. EXTREMITIES: 2+ peripheral pulses with no evidence of peripheral edema and no calf tenderness noted. NEUROLOGIC patient is awake, alert and oriented x3. . - Labs CBC & Chem 7: 12/22/19 06:32 12/22/19 06:32 Labs: Abnormal Lab Results - Last 24 Hours (Table) 12/22/19 12/22/19 Range/Units 06:32 06:32 RBC 2.78 L (4.30-5.90) m/uL Hgb 8.1 L (13.0-17.5) gm/dL Hct 25.1 L (39.0-53.0) % Sodium 130 L (137-145) mmol/L Chloride 97 L (98-107) mmol/L BUN 39 H (9-20) mg/dL Calcium 11.3 H (8.4-10.2) mg/dL Assessment and Plan Assessment: #1 paroxysmal atrial fibrillation #2 anemia #3 elevation of troponin does not reflect any acute coronary syndrome, could be due to anemia and atrial fibrillation #4 chronic pleural effusion #5 hypothyroidism #6 cardiomyopathy Plan: From cardiology's perspective, medications were reviewed and will continue the same. We would favor patient be anticoagulated however this will need to be decided by primary due to anemia. No further cardiac workup at this time. We will follow the patient on an as-needed basis. Please do not hesitate to contact us with questions. PROCESS ENGINEERING TECHNICIAN note has been reviewed, I agree with a documented findings and plan of care. Patient was seen and examined.
--- NOTE | 2019-12-22 17:50 | P.DS ---
Providers Date of admission: 12/20/19 17:19 Expected date of discharge: 12/22/19 Attending physician: Braulio Deleon MD Consults: 12/20/19 17:19 Consult Physician Stat Consulting Provider: Ronald Randhawa Consult Reason/Comments: pleural effusion, weakness Do you want consulting provider notified?: Yes Consult Physician Urgent Consulting Provider: Gallo Marks Consult Reason/Comments: Weakness, A. fib with RVR, elevated troponin Do you want consulting provider notified?: Yes 12/21/19 10:37 Consult Physician Routine Consulting Provider: Mohan Sanchez Consult Reason/Comments: Right effusion Do you want consulting provider notified?: Yes Primary care physician: [place] [facility] Course: 89-year-old male with PMH of laryngeal cancer, hypertension, hypothyroidism, BPH presents to the ED for generalized weakness. Patient reports typically being able to ambulate with a walker. Today, he was unable to stand up. His generalized weakness has been getting worse over the past 3 days. Patient denies any focal neurologic deficits. Patient also reports a decreased appetite and subjective 30 pound weight loss over the past 3 months. He does have a history of laryngeal cancer and follows Dr. Mcgill. He has a history of smoking 40 years ago. Patient also reports some swelling in his bilateral ankles. Patient reports constipation, last bowel movement 4 days ago. He denies any headache, nausea or vomiting, fever or chills, cough, chest pain, shortness of breath, palpitations, changes in urination. He denies any dizziness, numbness/weakness/tingling of the extremities. In the ED, vital signs were stable except for O2 saturation of 92% on room air. EKG showed atrial fibrillation with RVR ventricular rate of 114. Chest x-ray showed pleural fluid and thickening right lower lobe, slightly worsened. CBC showed hemoglobin of 8.6. INR was within normal limits. CMP showed sodium of 133, B1 of 44, creatinine 1.34, calcium 11.8. Troponin was 0.074. BNP was 5050. Stool for occult blood was negative. Patient is admitted for generalized weakness, A. fib with RVR, anemia and pleural effusion with pulmonology and cardiology on consultation. Patient's generalized weakness was thought to be multifactorial related to A. fib, worsening pleural effusions and worsening anemia. PT and OT was consulted and recommended SCR versus home with home PT which patient was agreeable 4. With regard to his A. fib with RVR cardiology was consulted. Cardiology recommended continuing his home medications and echocardiogram. Echocardiogram showed EF 40-45% with hypokinetic wall motion and moderate concentric LVH. Cardiology started the patient on metoprolol by mouth. He also had elevated troponins of 0.074, 0.075 0.072. Acute coronary syndrome was ruled out. Patient was noted to have a decreased hemoglobin of 8, hemoglobin on November 14 was 10.3. Stool for occult blood was negative. Iron studies showed iron deficiency and anemia of chronic disease. He was given IV iron and his hemoglobin was trended. His hemoglobin remains stable and no blood transfusion was required. Pulmonology evaluated the patient with regard to his pleural effusion and decision was made not to do thoracentesis. He was continued on Lasix 20 g IV twice a day and transitioned to oral Lasix on discharge. Patient was noted to have subclinical hypothyroidism. He was continued on his home dose of Synthroid and advised to repeat TSH and free T4 in 6 weeks. Patient was advised to follow-up with ENT for history of laryngeal cancer. Patient was seen and examined. No acute events overnight. Patient reports improvement in his generalized weakness. He denies any chest pain, shortness of breath or palpitations. No nausea or vomiting. No fever or chills. Wanting to go home. General: [non toxic], [no distress], [appears at stated age] Derm: [warm], [dry] Head: [atraumatic], [normocephalic], [symmetric] Eyes: [EOMI], [no lid lag], [anicteric sclera] Mouth: [no lip lesion], [mucus membranes moist] Cardiovascular: [S1S2 irregular], [no murmur], [positive DP pulse bilateral], Lungs: [Decreased breath sounds bilateral], [no rhonchi, no rales] , [no accessory muscle use] Abdominal: [soft], [ nontender to palpation], [no guarding], [no appreciable organomegaly] Ext: [no gross muscle atrophy], [no edema], [no contractures] Neuro: [no focal neuro deficits] Psych: [Alert], [oriented], [appropriate affect] Generalized weakness Atrial fibrillation with RVR Elevated troponin Anemia Pleural effusion Subclinical Hypothyroidism History of laryngeal cancer Poor appetite with low BMI of 20 Patient's generalized weakness is multifactorial (A. fib with RVR, worsening pleural effusion, worsening anemia). Patient will be placed on fall precautions and PT and OT will be consulted for medical further management. As seen on EKG. Rate of 114. We will place the patient on telemetry monitoring. Cardiology would be consulted for further management of this patient. Echocardiogram shows EF 40-45% with hypokinetic wall motion and moderate concentric LVH. He has been started on metoprolol by mouth by cardiology. I have discussed anticoagulation with the patient and he would prefer to hold any anticoagulation at this time and discuss risk versus reward with his PCP. We will continue aspirin in the meantime. Patient has elevated troponin of 0.074, 0.075, 0.072. This could be related to demand ischemia from atrial fibrillation. ACS ruled out. Hemoglobin 8. His hemoglobin on 11/15/2019 was 10.3. Stool for occult blood is negative. Iron studies show iron deficiency and anemia of chronic disease. Repeat hemoglobin this morning 8.1. Plans to transfuse if hemoglobin less than 7. DC IV iron and continue ferrous sulfate at home. Chest x-ray showing worsening pleural effusion. Previously evaluated and thoracentesis performed by pulmonology. Transition IV Lasix to oral for discharge. Patient will be given supplemental O2 per NC to maintain O2 saturation greater than 92%. Pulmonology has evaluated the patient and there is no thoracentesis is planned at this time. Patient's home dose of Synthroid will be restarted for hypothyroidism. Patient will need repeat TSH and free T4 in 6 weeks. Patient will need to follow-up with ENT Dr. Mcgill in the outpatient setting. Patient reports a poor appetite and subjective weight loss. Dietitian will be consulted. [Patient to be discharged home with home PT. Follow-up PCP within 3 days of discharge. Needs repeat TSH and free T4 in 6 weeks. Advised to follow-up with pulmonology and cardiology in 1-2 weeks. Patient verbalized understanding of the plan. Anticipate DC home today. This complex discharge took about 45 minutes to complete.] Pertinent Studies: Chest ultrasound, echocardiogram, chest x-ray Patient Condition at Discharge: Good Plan - Discharge Summary New Discharge Prescriptions: New Aspirin 81 mg PO DAILY #30 chew Metoprolol Tartrate [Lopressor] 25 mg PO BID #60 tab Continue Multivitamin/Iron/Folic Acid [Centrum Complete Multivit Tab] 1 tab PO DAILY@1200 Tamsulosin HCl [Flomax] 0.4 mg PO HS Omeprazole [PriLOSEC] 20 mg PO DAILY@1200 Ferrous Sulfate [Iron (65 MG Elemental)] 325 mg PO DAILY Furosemide [Lasix] 20 mg PO DAILY Acetaminophen-Codeine 300-30mg [Tylenol w/codeine #3] 1 tab PO HS Sennosides [Senokot] 17.2 mg PO HS Stool Softener 250mg 250 mg PO HS Magnesium Citrate 250mg 250 mg PO DAILY Mirtazapine [Remeron] 7.5 mg PO HS Levothyroxine Sodium [Synthroid] 25 mcg PO DAILY Discontinued Potassium Chloride [Klor-Con 10] 10 meq PO DAILY Ibuprofen [Motrin Ib] 200 - 800 mg PO BID PRN PRN Reason: Pain Discharge Medication List Multivitamin/Iron/Folic Acid [Centrum Complete Multivit Tab] 1 tab PO DAILY@1200 08/25/17 [History] Omeprazole [PriLOSEC] 20 mg PO DAILY@1200 08/25/17 [History] Tamsulosin HCl [Flomax] 0.4 mg PO HS 08/25/17 [History] Ferrous Sulfate [Iron (65 MG Elemental)] 325 mg PO DAILY 02/25/19 [History] Furosemide [Lasix] 20 mg PO DAILY 03/02/19 [History] Acetaminophen-Codeine 300-30mg [Tylenol w/codeine #3] 1 tab PO HS 12/20/19 [History] Levothyroxine Sodium [Synthroid] 25 mcg PO DAILY 12/20/19 [History] Magnesium Citrate 250mg 250 mg PO DAILY 12/20/19 [History] Mirtazapine [Remeron] 7.5 mg PO HS 12/20/19 [History] Sennosides [Senokot] 17.2 mg PO HS 12/20/19 [History] Stool Softener 250mg 250 mg PO HS 12/20/19 [History] Aspirin 81 mg PO DAILY #30 chew 12/22/19 [Rx] Metoprolol Tartrate [Lopressor] 25 mg PO BID #60 tab 12/22/19 [Rx] Follow up Appointment(s)/Referral(s): Isaiah Ascencio MD [Primary Care Provider] - 1-2 days (PLEASE CALL TOMORROW to schedule follow up. OFFICE IS CLOSED WEDNESDAYS. Dr Ascencio should know that you were hospitalized for ATRIAL FIBRILLATION. ) Shira Spencer MD [STAFF PHYSICIAN] - 12/30/19 4:00 pm (Please bring your license, insurance card, and any medications you take.) Mohan Sanchez DO [Doctor of Osteopathic Medicine] - 01/04/20 9:30 am [facility] Visiting Nurse, [NON-STAFF] - Patient Instructions/Handouts: A-fib (Atrial Fibrillation) (DC) Activity/Diet/Wound Care/Special Instructions: Diet: Low salt FU with PCP 3 days of discharge. Follow-up with cardiology within 1 week of discharge. Follow up with pulmonology within 1 week of discharge. Take all medications as advised. Discharge Disposition: HOME SELF-CARE
== END 2019-12-22 15:30 | disposition home health service (06) | DRG 309 ==
LOC: EC 15:04 → 3SCARD 17:19
PROVIDERS: ADMIT Family Medicine; ATTEND Family Medicine
DX: I48.0 Paroxysmal atrial fibrillation (principal); J90 Pleural effusion, not elsewhere classified; N17.9 Acute kidney failure, unspecified; E44.0 Moderate protein-calorie malnutrition; Z68.1 Body mass index [BMI] 19.9 or less, adult; I42.9 Cardiomyopathy, unspecified; I95.9 Hypotension, unspecified; D63.8 Anemia in other chronic diseases classified elsewhere; J44.9 Chronic obstructive pulmonary disease, unspecified; I11.9 Hypertensive heart disease without heart failure; Z66 Do not resuscitate; Z20.828 Contact with and (suspected) exposure to other viral communicable diseases; D50.9 Iron deficiency anemia, unspecified; I25.10 Atherosclerotic heart disease of native coronary artery without angina pectoris; E03.9 Hypothyroidism, unspecified; I35.8 Other nonrheumatic aortic valve disorders; E78.5 Hyperlipidemia, unspecified; K21.9 Gastro-esophageal reflux disease without esophagitis; N40.0 Benign prostatic hyperplasia without lower urinary tract symptoms; G89.29 Other chronic pain; M54.9 Dorsalgia, unspecified; K57.90 Diverticulosis of intestine, part unspecified, without perforation or abscess without bleeding; M19.90 Unspecified osteoarthritis, unspecified site; R26.2 Difficulty in walking, not elsewhere classified; K59.00 Constipation, unspecified; R79.89 Other specified abnormal findings of blood chemistry; Z77.090 Contact with and (suspected) exposure to asbestos; Z79.890 Hormone replacement therapy; Z79.899 Other long term (current) drug therapy; Z87.891 Personal history of nicotine dependence; Z86.711 Personal history of pulmonary embolism; Z85.21 Personal history of malignant neoplasm of larynx; Z92.21 Personal history of antineoplastic chemotherapy; Z92.3 Personal history of irradiation; Z87.39 Personal history of other diseases of the musculoskeletal system and connective tissue; Z96.641 Presence of right artificial hip joint; Z90.89 Acquired absence of other organs; Z98.890 Other specified postprocedural states; Z80.51 Family history of malignant neoplasm of kidney; Z82.49 Family history of ischemic heart disease and other diseases of the circulatory system; Z83.6 Family history of other diseases of the respiratory system
CPT/HCPCS: 36415; 71046; 76604; 80048; 80053; 80061; 81003; 82272; 82728; 83540; 83550; 83605; 83735; 83880; 84439; 84443; 84484; 85025; 85610; 85730; 93005; 93306; 99285